=== PATIENT | female | born 1955 | race Caucasian/White ===

== ENCOUNTER → 2016-09-03 | Outpatient (REF) | payer MEDICARE, MEDICAID ==
[~2016-09-03] MED LIST: ABIL10TA OR; ASPI81TA3 OR; BACT2CRE EX; CALCCHW12 OR; CIPR25SS OR; DOXY100T OR; GLUC1000 OR; GLUC1000 PO; LEVO25TA2 PO; MULTIVIT PO; NIFE60TA PO; PAIN325T OR; RISP2TAB12 OR; SLOWTAB OR; [UNRECOGNIZED DRUG - CODE] OR; [UNRECOGNIZED DRUG - OTHER] PO
[2016-09-03 12:15] LABS: BASO % 0.6 % (0.0-1.0); EOS # 0.2 K/mm3 (0.0-0.50); EOS % 3.5 % (0.0-3.0); LARGE UNSTAINED CELL # 0.1 K/mm3 (0.0-0.4); LYMPH # 1.3 K/mm3 (1.5-4.5); LYMPH % 22.5 % (24.0-44.0); MEAN CORPUSCULAR HEMOGLOBIN 29.3 pg (27.0-33.0); MEAN CORPUSCULAR HGB CONC 32.3 g/dl (32.0-36.5); MEAN CORPUSCULAR VOLUME 90.8 fl (80.0-96.0); MONO # 0.3 K/mm3 (0.0-0.8); MONO % 4.6 % (0.0-5.0); NEUTROPHILS # 3.9 K/mm3 (1.8-7.7); NEUTROPHILS % 66.7 % (36.0-66.0); PLATELET COUNT, AUTOMATED 212 k/mm3 (150-450); RED CELL DISTRIBUTION WIDTH 13.6 % (11.5-14.5); WHITE BLOOD COUNT 5.9 K/mm3 (4.0-10.0)
[2016-09-03 12:42] LABS: ALBUMIN 4.1 GM/DL (3.2-5.2); ALBUMIN/GLOBULIN RATIO 1.37 (1.00-1.93); ALKALINE PHOSPHATASE 79 U/L (45-117); ALT/SGPT 22 U/L (12-78); ANION GAP 10 MEQ/L (8-16); AST/SGOT 10 U/L (15-37); BILIRUBIN,TOTAL 0.3 MG/DL (0.2-1.0); BLOOD UREA NITROGEN 12 MG/DL (7-18); CALCIUM LEVEL 9.4 MG/DL (8.5-10.1); CARBON DIOXIDE LEVEL 29 MEQ/L (21-32); CHLORIDE LEVEL 103 MEQ/L (98-107); CREATININE FOR GFR 0.72 MG/DL (0.55-1.02); FERRITIN 17 NG/ML (8-252); FREE T4 1.17 NG/DL (0.76-1.46); GLOMERULAR FILTRATION RATE > 60.0 (>51); GLUCOSE, FASTING 150 MG/DL (70-105); PERCENT SATURATION 13.5 % (13.2-37.4); POTASSIUM SERUM 4.3 MEQ/L (3.5-5.1); SODIUM LEVEL 142 MEQ/L (136-145); TOTAL IRON BINDING CAPACITY 468 UG/DL (250-450); TOTAL PROTEIN 7.1 GM/DL (6.4-8.2)
== END ==
LOC: M LABDRAW1 11:27
PROVIDERS: ATTEND Family Medicine
DX: E11.9 Type 2 diabetes mellitus without complications (principal); E03.9 Hypothyroidism, unspecified

== ENCOUNTER → 2017-02-12 | Outpatient (REF) | payer MEDICARE, MEDICAID ==
[2017-02-12 12:36] LABS: ALBUMIN/GLOBULIN RATIO 1.21 (1.00-1.93); ALKALINE PHOSPHATASE 79 U/L (45-117); ALT/SGPT 25 U/L (12-78); ANION GAP 10 MEQ/L (8-16); AST/SGOT 14 U/L (15-37); BILIRUBIN,TOTAL 0.4 MG/DL (0.2-1.0); BLOOD UREA NITROGEN 12 MG/DL (7-18); CALCIUM LEVEL 8.4 MG/DL (8.5-10.1); CARBON DIOXIDE LEVEL 27 MEQ/L (21-32); CHLORIDE LEVEL 99 MEQ/L (98-107); CHOLESTEROL LEVEL 160 MG/DL (<200); CREATININE FOR GFR 0.79 MG/DL (0.55-1.02); FREE T4 1.33 NG/DL (0.76-1.46); GLOMERULAR FILTRATION RATE > 60.0 (>51); GLUCOSE, FASTING 187 MG/DL (70-105); POTASSIUM SERUM 3.9 MEQ/L (3.5-5.1); SODIUM LEVEL 136 MEQ/L (136-145); TOTAL PROTEIN 7.3 GM/DL (6.4-8.2); TRIGLYCERIDES LEVEL 114 MG/DL (<150)
== END ==
LOC: M LABDRAW1 11:25
PROVIDERS: ATTEND Family Medicine
DX: E11.8 Type 2 diabetes mellitus with unspecified complications (principal)

== ENCOUNTER → 2019-03-24 | Outpatient (REF) | payer MEDICARE, OTHER, MEDICAID ==
[2019-03-24 10:10] LABS: BASO % 0.6 % (0.0-1.0); EOS # 0.3 10^3/uL (0.0-0.50); EOS % 3.6 % (0.0-3.0); HEMATOCRIT 40.2 % (36.0-47.0); HEMOGLOBIN 12.8 g/dl (12.0-15.5); LYMPH # 1.6 10^3/uL (1.5-4.5); LYMPH % 23.4 % (24.0-44.0); MEAN CORPUSCULAR HGB CONC 31.8 g/dl (32.0-36.5); MEAN CORPUSCULAR VOLUME 94.4 fl (80.0-96.0); MONO # 0.6 10^3/uL (0.0-0.8); NEUTROPHILS # 4.5 10^3/uL (1.8-7.7); NEUTROPHILS % 64.1 % (36.0-66.0); PLATELET COUNT, AUTOMATED 186 10^3/uL (150-450); RED BLOOD COUNT 4.26 10^6/uL (4.00-5.40)
[2019-03-24 10:43] LABS: ALBUMIN 3.9 GM/DL (3.2-5.2); ALT/SGPT 20 U/L (12-78); BILIRUBIN,TOTAL 0.3 MG/DL (0.2-1.0); BLOOD UREA NITROGEN 15 MG/DL (7-18); CALCIUM LEVEL 9.1 MG/DL (8.8-10.2); CARBON DIOXIDE LEVEL 28 MEQ/L (21-32); CHLORIDE LEVEL 104 MEQ/L (98-107); CREATININE FOR GFR 0.77 MG/DL (0.55-1.30); FERRITIN 19 NG/ML (8-252); GLOMERULAR FILTRATION RATE > 60.0 (>45); GLUCOSE, FASTING 152 MG/DL (70-100); POTASSIUM SERUM 4.4 MEQ/L (3.5-5.1); SODIUM LEVEL 141 MEQ/L (136-145); TOTAL PROTEIN 7.1 GM/DL (6.4-8.2)
[2019-03-24 10:51] LABS: PTH INTACT 30.3 PG/ML (18.5-88.0); TOTAL 25(OH) VITAMIN D 50.4 NG/ML (30.0-100.0)
[2019-03-24 11:14] LABS: HEMOGLOBIN A1c 8.3 %
== END ==
LOC: M SFHCPLAZ 08:20
PROVIDERS: ATTEND Family Medicine
DX: D50.9 Iron deficiency anemia, unspecified (principal); I10 Essential (primary) hypertension; E11.8 Type 2 diabetes mellitus with unspecified complications

== ENCOUNTER → 2019-12-01 | Outpatient (REF) | payer MEDICARE, MEDICAID ==
[2019-12-01 10:19] LABS: BASO % 0.5 % (0.0-1.0); EOS # 0.2 10^3/uL (0.0-0.5); EOS % 2.3 % (0.0-3.0); HEMOGLOBIN 12.9 g/dl (12.0-15.5); LYMPH # 1.5 10^3/uL (1.5-5.0); LYMPH % 21.9 % (24.0-44.0); MEAN CORPUSCULAR HEMOGLOBIN 29.4 pg (27.0-33.0); MEAN CORPUSCULAR HGB CONC 31.5 g/dl (32.0-36.5); MEAN CORPUSCULAR VOLUME 93.4 fl (80.0-96.0); MONO # 0.5 10^3/uL (0.0-0.8); MONO % 7.6 % (0.0-5.0); NEUTROPHILS # 4.5 10^3/uL (1.5-8.5); NEUTROPHILS % 67.2 % (36.0-66.0); PLATELET COUNT, AUTOMATED 205 10^3/uL (150-450); RED BLOOD COUNT 4.39 10^6/uL (4.00-5.40); WHITE BLOOD COUNT 6.6 10^3/uL (4.0-10.0)
[2019-12-01 11:03] LABS: ALBUMIN 4.2 GM/DL (3.2-5.2); ALT/SGPT 21 U/L (12-78); BILIRUBIN,TOTAL 0.5 MG/DL (0.2-1.0); BLOOD UREA NITROGEN 14 MG/DL (7-18); CALCIUM LEVEL 9.3 MG/DL (8.8-10.2); CARBON DIOXIDE LEVEL 28 MEQ/L (21-32); CHLORIDE LEVEL 105 MEQ/L (98-107); CREATININE FOR GFR 0.75 MG/DL (0.55-1.30); FREE T4 1.21 NG/DL (0.76-1.46); GLOMERULAR FILTRATION RATE > 60.0 (>45); GLUCOSE, FASTING 178 MG/DL (70-100); POTASSIUM SERUM 4.3 MEQ/L (3.5-5.1); SODIUM LEVEL 138 MEQ/L (136-145); TOTAL PROTEIN 7.7 GM/DL (6.4-8.2); VITAMIN B12 LEVEL > 2000 PG/ML (247-911)
== END ==
LOC: M SFHCPLAZ 08:10
PROVIDERS: ATTEND Family Medicine
DX: E53.8 Deficiency of other specified B group vitamins (principal); I10 Essential (primary) hypertension; E03.9 Hypothyroidism, unspecified

== ENCOUNTER → 2020-05-31 | Outpatient (REF) | payer MEDICARE, MEDICAID ==
[2020-05-31 14:09] LABS: BASO % 0.6 % (0.0-1.0); EOS # 0.2 10^3/uL (0.0-0.5); EOS % 3.1 % (0.0-3.0); HEMATOCRIT 39.6 % (36.0-47.0); HEMOGLOBIN 12.1 g/dl (12.0-15.5); LYMPH # 1.1 10^3/uL (1.5-5.0); LYMPH % 21.9 % (24.0-44.0); MEAN CORPUSCULAR HEMOGLOBIN 29.4 pg (27.0-33.0); MEAN CORPUSCULAR HGB CONC 30.6 g/dl (32.0-36.5); MEAN CORPUSCULAR VOLUME 96.1 fl (80.0-96.0); MONO # 0.4 10^3/uL (0.0-0.8); MONO % 7.5 % (0.0-5.0); NEUTROPHILS # 3.5 10^3/uL (1.5-8.5); NEUTROPHILS % 66.3 % (36.0-66.0); PLATELET COUNT, AUTOMATED 198 10^3/uL (150-450); RED BLOOD COUNT 4.12 10^6/uL (4.00-5.40); WHITE BLOOD COUNT 5.2 10^3/uL (4.0-10.0)
[2020-05-31 14:14] LABS: APPEARANCE, URINE CLEAR (CLEAR); BACTERIA, URINE AUTO NEGATIVE (NEGATIVE); BILIRUBIN, URINE AUTO NEGATIVE (NEGATIVE); BLOOD, URINE BLOOD NEGATIVE (NEGATIVE); COLOR, URINE COLORLESS (YELLOW); GLUCOSE, URINE (UA) AUTO NEGATIVE (NEGATIVE); KETONE, URINE AUTO NEGATIVE (NEGATIVE); LEUKOCYTE ESTERASE, URINE AUTO NEGATIVE (NEGATIVE); NITRITE, URINE AUTO NEGATIVE (NEGATIVE); PROTEIN, URINE AUTO NEGATIVE (NEGATIVE); RBC, URINE AUTO 0 /HPF (0-3); SPECIFIC GRAVITY URINE AUTO 1.002 (1.002-1.035); SQUAMOUS EPITHELIAL CELL UR AU 0 /HPF (0-6); UROBILINOGEN, URINE AUTO 0.2 mg/dL (0.0-2.0); WBC, URINE AUTO 1 /HPF (0-3)
[2020-05-31 14:32] LABS: ALBUMIN 3.8 GM/DL (3.2-5.2); ALT/SGPT 24 U/L (12-78); BILIRUBIN,TOTAL 0.3 MG/DL (0.2-1.0); BLOOD UREA NITROGEN 15 MG/DL (7-18); CARBON DIOXIDE LEVEL 29 MEQ/L (21-32); CHLORIDE LEVEL 106 MEQ/L (98-107); CHOLESTEROL LEVEL 156 MG/DL (<200); CREATININE FOR GFR 0.62 MG/DL (0.55-1.30); FREE T4 1.21 NG/DL (0.76-1.46); GLOMERULAR FILTRATION RATE > 60.0 (>45); GLUCOSE, FASTING 118 MG/DL (70-100); HDL CHOLESTEROL 80 MG/DL (>40); LDL CHOLESTEROL 58 MG/DL (<100); NON-HDL-C 76 MG/DL; POTASSIUM SERUM 4.1 MEQ/L (3.5-5.1); PTH INTACT 27.8 PG/ML (18.5-88.0); SODIUM LEVEL 141 MEQ/L (136-145); TOTAL 25(OH) VITAMIN D 44.5 NG/ML (30.0-100.0); TRIGLYCERIDES LEVEL 89 MG/DL (<150); VITAMIN B12 LEVEL 742 PG/ML (247-911)
[2020-05-31 14:42] LABS: HEMOGLOBIN A1c 6.2 %
[2020-05-31 14:49] LABS: CREATININE, URINE < 13.0 MG/DL; MALB URINE SIEMENS < 5.0 MG/L
== END ==
LOC: M PLALAB 08:13
PROVIDERS: ATTEND Family Medicine
DX: E53.8 Deficiency of other specified B group vitamins (principal); E55.9 Vitamin D deficiency, unspecified; E03.9 Hypothyroidism, unspecified; E11.8 Type 2 diabetes mellitus with unspecified complications; Z79.899 Other long term (current) drug therapy

== ENCOUNTER → 2020-10-27 | Outpatient (REF) | payer MEDICARE, MEDICAID ==
[2020-10-27 10:14] LABS: BASO % 0.6 % (0.0-1.0); EOS # 0.2 10^3/uL (0.0-0.5); EOS % 4.6 % (0.0-3.0); HEMATOCRIT 38.5 % (36.0-47.0); HEMOGLOBIN 11.9 g/dl (12.0-15.5); LYMPH # 1.3 10^3/uL (1.5-5.0); MEAN CORPUSCULAR HEMOGLOBIN 28.3 pg (27.0-33.0); MEAN CORPUSCULAR HGB CONC 30.9 g/dl (32.0-36.5); MEAN CORPUSCULAR VOLUME 91.4 fl (80.0-96.0); MONO # 0.5 10^3/uL (0.0-0.8); MONO % 8.7 % (2.0-8.0); NEUTROPHILS # 3.1 10^3/uL (1.5-8.5); NEUTROPHILS % 60.5 % (36.0-66.0); PLATELET COUNT, AUTOMATED 223 10^3/uL (150-450); RED BLOOD COUNT 4.21 10^6/uL (4.00-5.40); WHITE BLOOD COUNT 5.2 10^3/uL (4.0-10.0)
[2020-10-27 10:30] LABS: HEMOGLOBIN A1c 6.8 %
[2020-10-27 10:51] LABS: ALBUMIN 3.9 GM/DL (3.2-5.2); ALT/SGPT 21 U/L (12-78); BILIRUBIN,TOTAL 0.2 MG/DL (0.2-1.0); BLOOD UREA NITROGEN 12 MG/DL (7-18); CALCIUM LEVEL 9.3 MG/DL (8.8-10.2); CARBON DIOXIDE LEVEL 31 MEQ/L (21-32); CHLORIDE LEVEL 105 MEQ/L (98-107); CREATININE FOR GFR 0.71 MG/DL (0.55-1.30); FREE T4 1.13 NG/DL (0.76-1.46); GLOMERULAR FILTRATION RATE > 60.0 (>45); GLUCOSE, FASTING 167 MG/DL (70-100); NT-PRO BNP 58 PG/ML (<125); POTASSIUM SERUM 4.5 MEQ/L (3.5-5.1); SODIUM LEVEL 141 MEQ/L (136-145); TOTAL PROTEIN 7.2 GM/DL (6.4-8.2)
== END ==
LOC: M PLALAB 08:40
PROVIDERS: ATTEND Family Medicine
DX: R60.9 Edema, unspecified (principal); D50.9 Iron deficiency anemia, unspecified; E53.8 Deficiency of other specified B group vitamins; E03.9 Hypothyroidism, unspecified; E11.8 Type 2 diabetes mellitus with unspecified complications

== ENCOUNTER 2020-11-24 06:15 | Emergency (ER) | payer MEDICARE, MEDICAID ==
[~2020-11-24] VITALS: Ht 165.1 cm; Wt 118.2 kg
[2020-11-24] MEDS ORDERED: CLAR10CA3 PO (06:42)
[2020-11-24] MEDS ORDERED: NOXI1TAB PO (06:42)
[2020-11-24] MEDS ORDERED: B-12100T2 PO (06:42)
[2020-11-24] MEDS ORDERED: SITA50TAB PO (06:42)
[2020-11-24] MEDS ORDERED: GLIP2.5T6 PO (06:42)
[2020-11-24] MEDS ORDERED: FERR325T3 PO (06:42)
[2020-11-24] MEDS ORDERED: ABIL10TA9 PO (06:42)
[2020-11-24 07:08] LABS: BASO % 0.4 % (0.0-1.0); EOS # 0.1 10^3/uL (0.0-0.5); EOS % 1.8 % (0.0-3.0); HEMATOCRIT 36.8 % (36.0-47.0); HEMOGLOBIN 11.4 g/dl (12.0-15.5); LYMPH # 0.8 10^3/uL (1.5-5.0); LYMPH % 12.3 % (24.0-44.0); MEAN CORPUSCULAR HEMOGLOBIN 28.4 pg (27.0-33.0); MEAN CORPUSCULAR VOLUME 91.8 fl (80.0-96.0); MONO # 0.4 10^3/uL (0.0-0.8); NEUTROPHILS # 5.4 10^3/uL (1.5-8.5); NEUTROPHILS % 79.4 % (36.0-66.0); PLATELET COUNT, AUTOMATED 263 10^3/uL (150-450); RED BLOOD COUNT 4.01 10^6/uL (4.00-5.40); WHITE BLOOD COUNT 6.8 10^3/uL (4.0-10.0)
--- NOTE | 2020-11-24 07:23 | ECGEPIP ---
[facility] - ED Test Date: 2020-11-24 Pat Name: GREGORIO SANCHEZ Department: Room: - Gender: Female [employer]: QUANG : 1955 Requested By: JADEN Lan PA-C Order Number: [id number] Reading MD: Marcello Salcedo Measurements Intervals [place] Rate: 88 P: 28 [place]: 176 QRS: -10 QRSD: 90 T: 27 QT: 352 QTc: 425 Interpretive Statements Normal sinus rhythm NO PRIORS FOR COMPARISON Electronically Signed on 11-24-2020 7:23:09 EDT by Marcello Salcedo
[2020-11-24 08:02] LABS: ALBUMIN 3.4 GM/DL (3.2-5.2); ALT/SGPT 25 U/L (12-78); BILIRUBIN,DIRECT 0.1 MG/DL (0.0-0.2); BILIRUBIN,TOTAL 0.2 MG/DL (0.2-1.0); BLOOD UREA NITROGEN 15 MG/DL (7-18); CALCIUM LEVEL 8.6 MG/DL (8.8-10.2); CARBON DIOXIDE LEVEL 29 MEQ/L (21-32); CHLORIDE LEVEL 108 MEQ/L (98-107); CK-MB VALUE MASS 1.4 NG/ML (<3.6); CPK CREATINE PHOSPHOKINASE 99 U/L (26-192); CREATININE FOR GFR 0.54 MG/DL (0.55-1.30); GLOMERULAR FILTRATION RATE > 60.0 (>45); GLUCOSE, FASTING 162 MG/DL (70-100); MB/CK RELATIVE INDEX 1.41 (< OR =4); NT-PRO BNP 163 PG/ML (<125); POTASSIUM SERUM 3.5 MEQ/L (3.5-5.1); SODIUM LEVEL 143 MEQ/L (136-145); TOTAL PROTEIN 6.8 GM/DL (6.4-8.2); TROPONIN I < 0.02 NG/ML (< 0.10)
--- NOTE | 2020-11-24 08:05 | REP ---
INDICATION: severe foot pain, known ulcer over heel COMPARISON: None. TECHNIQUE: There are four views. FINDINGS: The distal tip of a compression plate is seen projected over the distal fibula. There is subtle curvilinear densities projected over the soft tissues adjacent to the calcaneus of uncertain significance, foreign bodies versus clothing artifacts. There is a focal zone of decreased bone density posteriorly inferiorly in the calcaneus just beneath the cortex of uncertain significance. This could represent focal osteoporosis, however, given the history of heel ulcer osteomyelitis is not entirely excluded. There is osteoarthritis at the great toe MTP articulation. This is compatible with osteoarthritis. There is joint space narrowing of the PIP and DIP articulations also compatible with osteoarthritis. No fracture or dislocation. IMPRESSION: Focal zone of decreased density posteriorly inferiorly in calcaneus just beneath the cortex, focal osteoporosis versus subtle osteoarthritis. Faintly visible curvilinear densities in projected over the soft tissues adjacent to the calcaneus, soft tissue foreign bodies versus clothing artifacts. Osteoarthritis as described. Internal fixation compression plate affixed to the distal fibula. <Electronically signed by Bi Trinh > 11/24/20 [id number]
--- NOTE | 2020-11-24 08:11 | REP ---
INDICATION: weakness, unable to lift R leg. COMPARISON: None. TECHNIQUE: AP pelvis single view, right hip two views, left hip two views. FINDINGS: AP pelvis: Mineralization is normal. The sacroiliac articulations are unremarkable. There is advanced osteoarthritis of the hips bilaterally. There are calcifications adjacent to the greater trochanters bilaterally, possibly calcific bursitis. The bladder appears distended. Right hip two views: There is advanced osteoarthritis. There are calcifications adjacent to the greater trochanter. These could be degenerative or could be evidence for calcific bursitis. Mineralization is normal. There is no fracture or dislocation. There is atheromatous calcification in the femoral artery. Left hip two views: There is advanced osteoarthritis. There are calcifications adjacent to the greater trochanter. These could be degenerative or could be evidence for calcific bursitis. Mineralization is normal. There is no fracture or dislocation. There is atheromatous calcification in the femoral artery. IMPRESSION: AP pelvis: Advanced bilateral hip osteoarthritis. Question bilateral calcific bursitis at the greater trochanters. No fracture or dislocation. Right hip two views: No fracture or dislocation. Advanced osteoarthritis Possible calcific bursitis at the greater trochanter. Left hip two views: No fracture or dislocation. Advanced osteoarthritis. Possible calcific bursitis at the greater trochanter. <Electronically signed by Bi Trinh > 11/24/20 [id number]
[2020-11-24 10:05] VITALS: BP 147/62
--- NOTE | 2020-11-25 08:37 | ED PDOC ---
Post-Departure Follow-Up dr mcghee faxed formal report of right foot xray for fu Rl Kingsley MD Nov 25, 2020 08:37
== END 2020-11-24 10:52 | disposition home or self-care (01) ==
LOC: M ED 06:15
DX: E11.621 Type 2 diabetes mellitus with foot ulcer (principal); I10 Essential (primary) hypertension; Z79.84 Long term (current) use of oral hypoglycemic drugs; Z79.899 Other long term (current) drug therapy; Z88.0 Allergy status to penicillin; Z88.1 Allergy status to other antibiotic agents; Z88.8 Allergy status to other drugs, medicaments and biological substances

== ENCOUNTER 2021-01-04 19:05 | Inpatient (IN) | payer MEDICARE, MEDICAID ==
[~2021-01-04] VITALS: Ht 165.1 cm; Wt 91.9 kg
[~2021-01-04 19:05] MED LIST changes: +ABIL10TA9 PO; +B-12100T2 PO; +CLAR10CA3 PO; +FERR325T3 PO; +GLIP2.5T6 PO; +NOXI1TAB PO; +SITA50TAB PO
[2021-01-04 20:06] LABS: BASO % 0.2 % (0.0-1.0); EOS % 0.1 % (0.0-3.0); HEMATOCRIT 31.2 % (36.0-47.0); HEMOGLOBIN 9.5 g/dl (12.0-15.5); LYMPH # 0.4 10^3/uL (1.5-5.0); LYMPH % 2.4 % (24.0-44.0); MEAN CORPUSCULAR HEMOGLOBIN 27.4 pg (27.0-33.0); MEAN CORPUSCULAR HGB CONC 30.4 g/dl (32.0-36.5); MEAN CORPUSCULAR VOLUME 89.9 fl (80.0-96.0); MONO # 0.7 10^3/uL (0.0-0.8); MONO % 4.4 % (2.0-8.0); NEUTROPHILS # 13.9 10^3/uL (1.5-8.5); NEUTROPHILS % 91.2 % (36.0-66.0); PLATELET COUNT, AUTOMATED 305 10^3/uL (150-450); RED BLOOD COUNT 3.47 10^6/uL (4.00-5.40); WHITE BLOOD COUNT 15.2 10^3/uL (4.0-10.0)
--- NOTE | 2021-01-04 20:06 | REP ---
INDICATION: weakness. COMPARISON: None. TECHNIQUE: Single portable AP view of the chest was performed. FINDINGS: There is no acute infiltrate or pulmonary edema. Lungs are clear. The heart is not significantly enlarged. The mediastinal silhouette is unremarkable. The visualized osseous structures are intact. IMPRESSION: No acute pulmonary disease. <Electronically signed by Bi James > 01/04/212001
[2021-01-04 20:32] LABS: BLOOD UREA NITROGEN 18 MG/DL (7-18); CALCIUM LEVEL 9.2 MG/DL (8.8-10.2); CARBON DIOXIDE LEVEL 22 MEQ/L (21-32); CHLORIDE LEVEL 105 MEQ/L (98-107); CK-MB VALUE MASS < 1.0 NG/ML (<3.6); CPK CREATINE PHOSPHOKINASE 85 U/L (26-192); CREATININE FOR GFR 0.57 MG/DL (0.55-1.30); FREE T4 1.71 NG/DL (0.76-1.46); GLOMERULAR FILTRATION RATE > 60.0 (>45); GLUCOSE, FASTING 240 MG/DL (70-100); IRON (FE) 18 UG/DL (50-170); MAGNESIUM LEVEL 1.6 MG/DL (1.8-2.4); MB/CK RELATIVE INDEX 1.18 (< OR =4); PERCENT SATURATION 7.1 % (13.2-45.0); POTASSIUM SERUM 3.8 MEQ/L (3.5-5.1); SODIUM LEVEL 139 MEQ/L (136-145); TOTAL IRON BINDING CAPACITY 253 UG/DL (250-450); TROPONIN I < 0.02 NG/ML (< 0.10)
[2021-01-04] MEDS: HumaLOG INSULIN (NovoLOG) PER UNIT SC SCH (21:00)
[2021-01-04 23:19] VITALS: O2SAT 95
[2021-01-04] MEDS ORDERED: MAGNESIUM OXIDE 400MG TAB (MAG-OX) PO ONE (23:30)
[2021-01-05] MEDS ORDERED: D31000TA2 PO (00:30)
[2021-01-05] MEDS ORDERED: VITMTA PO (00:30)
[2021-01-05] MEDS ORDERED: FERR325T18 PO (00:30)
[2021-01-05] MEDS ORDERED: NIFE1TAB51 PO (00:30)
[2021-01-05] MEDS ORDERED: VITA-172 PO (00:30)
[2021-01-05] MEDS ORDERED: MUPI30CR TOP (00:30)
[2021-01-05] MEDS ORDERED: RISP-9 PO (00:30)
[2021-01-05] MEDS ORDERED: SYNT50TA PO (00:30)
[2021-01-05] MEDS ORDERED: ABIL10TA9 PO (00:30)
[2021-01-05] MEDS ORDERED: LORA-622 PO (00:30)
[2021-01-05] MEDS ORDERED: METF10004 PO (00:30)
[2021-01-05] MEDS ORDERED: JANU100T PO (00:30)
[2021-01-05] MEDS ORDERED: ACET650T61 PO (00:30)
[2021-01-05] MEDS ORDERED: OYST500T91 PO (00:30)
[2021-01-05] MEDS ORDERED: GLIP2.5T6 PO (00:30)
[2021-01-05] MEDS ORDERED: ASPI-161 PO (00:30)
[2021-01-05] MEDS ORDERED: MAALOX 30 ML SUSP *UDC PO PRN (00:50)
[2021-01-05] MEDS ORDERED: MOM 30ML SUSPENSION UDC PO PRN (00:50)
[2021-01-05] MEDS ORDERED: GLUCAGON INJ 1MG VIAL SC PRN (00:50)
[2021-01-05] MEDS ORDERED: GLUCOSE 4GM CHEW TABLET PO PRN (00:50)
[2021-01-05] MEDS ORDERED: MUPIROCIN 2% OINT 22 GM TUBE TOP PRN (00:50)
[2021-01-05] MEDS ORDERED: DEXTROSE 50% 50 ML SYRINGE IV PRN (00:50)
--- NOTE | 2021-01-05 00:51 | REPVR ---
PROCEDURE INFORMATION: Exam: CT Head Without Contrast Exam date and time: 01/05/2021 12:20 AM Age: 65 years old Clinical indication: Injury or trauma; Fall; Concussion/head injury; Additional info: Weakness TECHNIQUE: Imaging protocol: Computed tomography of the head without contrast. Radiation optimization: All CT scans at this facility use at least one of these dose optimization techniques: automated exposure control; mA and/or kV adjustment per patient size (includes targeted exams where dose is matched to clinical indication); or iterative reconstruction. COMPARISON: No relevant prior studies available. FINDINGS: Limitations: Patient motion. Brain: Age-related volume loss. No definite acute intracranial hemorrhage. No midline shift or intracranial mass effect. Cerebral ventricles: No hydrocephalus. Bones/joints: No definite acute calvarial fracture. Paranasal sinuses: Minimal paranasal sinus disease. Mastoid air cells: Visualized mastoid air cells are well aerated. Soft tissues: Unremarkable. IMPRESSION: Patient motion without definite acute intracranial abnormality. Electronically signed by: Kartik Ibarra On 01/05/2021 00:51:04 AM
--- NOTE | 2021-01-05 01:20 | HPEPDOC ---
[facility] Medical History & Physical Date of Admission January 05, 2021 Date of Service: January 05, 2021 Attending Physician: EMETERIO MENA MD History and Physical CHIEF COMPLAINT: [65 y/o female presents to the ED after suffering a fall] HISTORY OF PRESENT ILLNESS: [This is a 65 y/o female with a pmh of schizo phrenia, tardive dyskinesias, htn, hypothyroidism and DM2 who presents to the ED after suffering a fall the night of 01/03. Patient states that she has been following wound clinic Dr. Oakes for a diabetic foot ulcer right foot and that earlier in the day she had an appointment and underwent a debridement. Patient states that after the debridement, she was having pain in her right foot and it made it difficult for her to stand up out of a chair, so she slid out and fell. Patient states that she feels as though the pain was the cause of her fall. Patient denies weakness, dizziness, lightheadedness, vision changes, syncope, headache, post fall grogginess, striking her head, back pain, hip pain, chest pain, sob, cough, fever, chills, abd pain, n/v/d. Of note, patient found to have hypomagnesemia of 1.6 and meet sirs criteria with tachycardia of 106 and leukocytosis of 15.2 ] PAST MEDICAL HISTORY: 1. [See HPI PAST SURGICAL HISTORY: 1. [Tonsillectomy]. 2. [Right ankle ORIF]. 3. [Laser eye surgery]. SOCIAL HISTORY: Tobacco use:[Denies] ETOH: [Denies] Illicit drug use: [Denies] FAMILY HISTORY: 4 siblings have DM ALLERGIES: Please see below. REVIEW OF SYSTEMS: CONSTITUTIONAL: [See HPI]. HEENT: [See HPI]. CARDIOVASCULAR: [See HPI]. RESPIRATORY: [See HPI]. GASTROINTESTINAL: [See HPI]. GENITOURINARY: [Denies dysuria]. SKIN: [Denies rash]. MUSCULOSKELETAL: [See HPI]. NEUROLOGICAL: [See HPI]. PSYCHIATRIC: [Hx of schizophrenia, tardive dyskinesia]. ENDOCRINE: [Hx of DM]. HEMATOLOGIC/LYMPHATIC: [Denies easy bruising]. HOME MEDICATIONS: Please see below. PHYSICAL EXAMINATION: VITAL SIGNS: Please see below. GENERAL APPEARANCE: [This is a 65 y/o female who appears older than her stated age. She is laying in bed and has a b/l hand tremor.]. HEENT: [No mass or lesion. Masked facies. EOMI. No scleral icterus. Nares patent. Oral mucosa moist without erythema.]. CARDIOVASCULAR: [Regular rate, rhythm. No murmurs, rubs, gallops]. LUNGS: [Good air flow auscultated. no wheezing, rales, rhonchi]. ABDOMEN: [Soft, nontender]. MUSCULOSKELETAL: [No joint deformity noted]. EXTREMITIES: [Right leg is wrapped in a large coban dressing. No edema noted. No skin changes of left leg noted. Pulses intact. ]. NEUROLOGICAL: [Sensation decreased in b/l lower extremity. B/L hand tremor as noted. Speech clear. A+Ox3.]. PSYCHIATRIC: [Mood and affect appear appropriate.]. LABORATORY DATA: See below. IMAGING: [CXR: FINDINGS: There is no acute infiltrate or pulmonary edema. Lungs are clear. The heart is not significantly enlarged. The mediastinal silhouette is unremarkable. The visualized osseous structures are intact. IMPRESSION: No acute pulmonary disease. Head CT: FINDINGS: Limitations: Patient motion. Brain: Age-related volume loss. No definite acute intracranial hemorrhage. No midline shift or intracranial mass effect. Cerebral ventricles: No hydrocephalus. Bones/joints: No definite acute calvarial fracture. Paranasal sinuses: Minimal paranasal sinus disease. Mastoid air cells: Visualized mastoid air cells are well aerated. Soft tissues: Unremarkable. IMPRESSION: Patient motion without definite acute intracranial abnormality. ] MICROBIOLOGY: Please see below. ASSESSMENT: [This is a 65 y/o female with a pmh of schizophrenia, tardive dyskinesias, htn, hypothyroidism and DM2 who presents to the ED after suffering a fall in which she states she was unable to stand due to pain in her right foot as she is s/p ulcer debridement. Patient did not strike her head and denies injury from the fall.]. . PLAN: 1. [ Weakness - Potentially secondary to pain, diabetic neuropathy, tardive dyskinesia - Patient would likely benefit from pt/ot - CT head negative - Will admit under obs to med surg 2. SIRS - Leukocytosis potentially inflammatory secondary to procedure earlier in the day. - Potential source of infection is the ulcer but this seems unlikely at this time. - Negative cxr, ua. Normal lactic - Ordered crp, procalcitonin - Blood cultures pending 3. Hypomagnesemia - Patient received 400mg mag oxide po in ed - Will repeat bmp at 0600 and replace as needed 4. Diabetic ulcer - Patient underwent debridement 01/03 - Day team can consider consulting wound clinic for advice on dressing changes 5. DM - Sliding scale, hypoglycemic protocol 6. HTN - continue nifedipine 7. hypothyroidism - continue levothyroxine 8. schizophrenia - continue risperdal, abilify DVT prophylaxis - Teds and scds]. Vital Signs Vital Signs Date Time Temp Pulse Resp B/P (MAP) Pulse Ox O2 Delivery O2 Flow Rate FiO2 01/04/21 23:19 95 Room Air 01/04/21 23:15 51 133/58 (83) 01/04/21 19:16 98.9 20 Laboratory Data Labs 24H Laboratory Tests 2 01/04/21 19:44: Immature Granulocyte % (Auto) 1.7, Neutrophils (%) (Auto) 91.2H, Lymphocytes (%) (Auto) 2.4L, Monocytes (%) (Auto) 4.4, Eosinophils (%) (Auto) 0.1, Basophils (%) (Auto) 0.2, Neutrophils # (Auto) 13.9H, Lymphocytes # (Auto) 0.4L, Monocytes # (Auto) 0.7, Eosinophils # (Auto) 0.0, Basophils # (Auto) 0.0, Nucleated Red Blood Cells % (auto) 0.0, Anion Gap 12, Glomerular Filtration Rate > 60.0, Calcium Level 9.2, Phosphorus Level 3.0, Magnesium Level 1.6L, Iron Level 18L, Total Iron Binding Capacity 253, Transferrin % Saturation 7.1L, Total Creatine Kinase 85, Creatine Kinase MB < 1.0, Creatine Kinase MB Relative Index 1.18, Troponin I < 0.02, Thyroid Stimulating Hormone (TSH) 1.150, Free Thyroxine 1.71H 01/04/21 23:14: Urine Color YELLOW, Urine Appearance HAZY, Urine pH 5.0, Urine Specific [place] 1.024, Urine Protein 1+H, Urine Glucose (UA) 2+H, Urine Ketones 2+H, Urine Blood 2+H, Urine Nitrite NEGATIVE, Urine Bilirubin NEGATIVE, Urine Urobilinogen 0.2, Urine Leukocyte Esterase NEGATIVE, Urine WBC (Auto) 1, Urine RBC (Auto) 3, Urine Hyaline Casts (Auto) 0, Urine Bacteria (Auto) NEGATIVE, Urine Squamous Ep ithelial Cells 0, Urine Mucus (Auto) SMALL, Urine Sperm (Auto) 01/05/21 00:52: CBC/BMP Laboratory Tests 01/04/21 19:44 Microbiology Microbiology 01/05/21 Blood Culture, Received Pending 01/04/21 Respiratory Virus Panel (PCR) (NICO) - Final, Complete Home Medications Scheduled Acetaminophen (Tylenol Arthritis) 650 Mg Tablet.er, 650 MG PO Q8H Aripiprazole (Abilify) 10 Mg Tablet, 10 MG PO QHS Aspirin (Aspirin EC) 81 Mg Tablet.dr, 81 MG PO DAILY Calcium Carbonate/Vitamin D3 (Calcium 500-Vit D3 200 Tablet) 1 Each Tablet, 1 TAB PO BID Cholecalciferol (Vitamin D3) (Vitamin D3) 1,000 Unit Tablet, 1,000 UNITS PO DAILY Cyanocobalamin (Vitamin B-12) (Vitamin B-12) 500 Mcg Tablet, 500 MCG PO DAILY Ferrous Sulfate (Ferrous Sulfate) 325 Mg Tablet, 325 MG PO DAILY Glipizide (Glipizide ER) 2.5 Mg Tab.er.24, 2.5 MG PO BID Levothyroxine Sodium (Synthroid) 50 Mcg Tablet, 50 MCG PO DAILY Loratadine (Loratadine) 10 Mg Tablet, 10 MG PO QHS Metformin HCl (Metformin HCl) 1,000 Mg Tablet, 1,000 MG PO BID Multivitamins (Thera M Plus Tablet) 1 Each Tablet, 1 TAB PO DAILY Nifedipine (Nifedipine ER) 60 Mg Tab.er.24, 60 MG PO DAILY Risperidone (Risperidone) 2 Mg Tablet, 2 MG PO BID Sitagliptin Phosphate (Januvia) 100 Mg Tablet, 100 MG PO DAILY Scheduled PRN Mupirocin (Mupirocin) 30 Gm Cream..g., 1 DOSE TOP BID PRN for SKIN INFECTION APPLIES TO RIGHT FOOT Allergies Coded Allergies: CASSIE Inhibitors (Verified Allergy, Unknown, 11/24/20) Penicillins (Verified Allergy, Unknown, 11/24/20) chlorpromazine (Verified Allergy, Unknown, 11/24/20) haloperidol (Verified Allergy, Unknown, 11/24/20) A-FIB/CHADSVASC A-FIB History Current/History of A-Fib/PAF?: No Attending Note Attending Note time of service 1259am Ms. Bustillo is a 65 yr old w a hx of hypothyroidism, NIDDM, HTN, schizophrenia, iatrogenic tardive dyskinesia, and MEREDITH who is admitted for evaluation of unsteady gait & SIRS of unclear cause. The CT head of the head is neg; we will ask the day time team to consider MRI of the brain, CTA of the head and neck + PT eval. MONICA SCHWARTZ January 05, 2021 01:20 EMETERIO MENA MD January 05, 2021 06:59
[2021-01-05] MEDS: ARIPiprazole 10 MG TAB PO SCH ×2 (01:30→20:22)
[2021-01-05] MEDS: LORATADINE 10 MG TAB PO SCH ×2 (01:30→20:22)
[2021-01-05] MEDS: risperiDONE 2 MG TAB PO SCH ×3 (01:30→20:22)
[2021-01-05] MEDS: CALCIUM/VITAMIN D 500 MG TAB PO SCH ×3 (02:33→20:22)
[2021-01-05 02:35] VITALS: BP 129/56
--- NOTE | 2021-01-05 02:46 | ECGEPIP ---
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
[2021-01-05] MEDS: ACETAMINOPHEN TAB 650MG DOSE (2X325MG) PO PRN (05:33)
[2021-01-05] MEDS: LEVOTHYROXINE 50MCG TABLET (0.05MG) PO SCH (05:33)
[2021-01-05 06:00] VITALS: BP 131/60
[2021-01-05 06:25] LABS: HEMOGLOBIN 9.3 g/dl (12.0-15.5); MEAN CORPUSCULAR HEMOGLOBIN 27.8 pg (27.0-33.0); MEAN CORPUSCULAR VOLUME 89.6 fl (80.0-96.0); PLATELET COUNT, AUTOMATED 279 10^3/uL (150-450); RED BLOOD COUNT 3.35 10^6/uL (4.00-5.40); WHITE BLOOD COUNT 12.5 10^3/uL (4.0-10.0)
[2021-01-05 06:44] LABS: BLOOD UREA NITROGEN 15 MG/DL (7-18); CARBON DIOXIDE LEVEL 26 MEQ/L (21-32); CHLORIDE LEVEL 104 MEQ/L (98-107); CREATININE FOR GFR 0.38 MG/DL (0.55-1.30); GLOMERULAR FILTRATION RATE > 60.0 (>45); GLUCOSE, FASTING 158 MG/DL (70-100); MAGNESIUM LEVEL 1.8 MG/DL (1.8-2.4); POTASSIUM SERUM 3.2 MEQ/L (3.5-5.1); SODIUM LEVEL 139 MEQ/L (136-145)
[2021-01-05] MEDS ORDERED: POTASSIUM CHLORIDE 10 MEQ SR TABLET PO ONE (08:00)
[2021-01-05] MEDS: NIFEdipine 30 MG XL TAB PO SCH (09:00)
[2021-01-05] MEDS: FERROUS SULFATE 325MG TAB PO SCH (09:22)
[2021-01-05] MEDS: DOCUSATE SODIUM 100MG CAPSULE PO SCH ×2 (09:22→20:23)
[2021-01-05] MEDS: HumaLOG INSULIN (NovoLOG) PER UNIT SC SCH ×4 (09:22→20:23)
[2021-01-05] MEDS: MULTIVITAMINS/MINERALS THERAP 1 TAB PO SCH (09:23)
[2021-01-05] MEDS: CYANOCOBALAMIN 500 MCG TAB PO SCH (09:23)
[2021-01-05] MEDS: VITAMIN D 1,000 INTERNATIONAL UNITS TABLET PO SCH (09:23)
[2021-01-05] MEDS: ASPIRIN 81MG ENTERIC TABLET PO SCH (09:23)
--- NOTE | 2021-01-05 12:21 | IPNPDOC ---
Text Note Date of Service The patient was seen on 01/05/21. NOTE Subjective: Patient seen and examined at bedside. No acute overnight events reported. Patient voices no new medical complaints this morning. Objective: General: NAD, lying comfortably in bed, hirsute HEENT: NC/AT, EOMI Lungs; CTA B/L Heart: +S1S2, RRR Abd: soft, NT, +BS, obese Ext: peripheral edema, RLE bandages in place A/P: 65F with PMHx of schizophrenia, tardive dyskinesias, htn, hypothyroidism and DM2 who presents to the ED after suffering a fall the night of 01/03. Patient states that she has been following wound clinic Dr. Oakes for a diabetic foot ulcer right foot and that earlier in the day she had an appointment and underwent a debridement. Patient states that after the debridement, she was having pain in her right foot and it made it difficult for her to stand up out of a chair, so she slid out and fell. Patient states that she feels as though the pain was the cause of her fall. #Weakness - Potentially secondary to pain, diabetic neuropathy, tardive dyskinesia - pt/ot - CT head negative #SIRS - resolved - no obvious source of infection - Leukocytosis potentially inflammatory secondary to procedure earlier in the day. - Negative cxr, ua. Normal lactic - Ordered crp, procalcitonin - Blood cultures pending #Hypomagnesemia - Patient received 400mg mag oxide po in ed - continue to follow and replete as needed #Diabetic ulcer - Patient underwent debridement 01/03 - wound care # DM - Sliding scale, hypoglycemic protocol # HTN - continue nifedipine # hypothyroidism - continue levothyroxine #schizophrenia - continue risperdal, abilify #DVT prophylaxis - Teds and scds]. VS,Fishbone, I+O VS, Fishbone, I+O Laboratory Tests 01/04/21 19:44 01/05/21 05:46 Vital Signs Date Time Temp Pulse Resp B/P (MAP) Pulse Ox O2 Delivery O2 Flow Rate FiO2 01/05/21 06:00 96.9 89 18 131/60 (83) 94 Room Air I&O- Last 24 Hours up to 6 AM 01/05/21 06:00 Intake Total 240 ml Balance 240 ml BENTLEY WALLACE MD January 05, 2021 12:21
[2021-01-05 14:00] VITALS: BP 114/50
[2021-01-05 22:00] VITALS: BP 106/57
[2021-01-06] MEDS: LEVOTHYROXINE 50MCG TABLET (0.05MG) PO SCH (05:35)
[2021-01-06 05:59] LABS: HEMATOCRIT 31.8 % (36.0-47.0); HEMOGLOBIN 9.7 g/dl (12.0-15.5); MEAN CORPUSCULAR HEMOGLOBIN 27.7 pg (27.0-33.0); MEAN CORPUSCULAR HGB CONC 30.5 g/dl (32.0-36.5); MEAN CORPUSCULAR VOLUME 90.9 fl (80.0-96.0); PLATELET COUNT, AUTOMATED 261 10^3/uL (150-450); WHITE BLOOD COUNT 9.5 10^3/uL (4.0-10.0)
[2021-01-06 06:00] VITALS: BP 131/78
[2021-01-06 06:15] LABS: BLOOD UREA NITROGEN 10 MG/DL (7-18); CALCIUM LEVEL 8.5 MG/DL (8.8-10.2); CARBON DIOXIDE LEVEL 29 MEQ/L (21-32); CHLORIDE LEVEL 104 MEQ/L (98-107); CREATININE FOR GFR 0.47 MG/DL (0.55-1.30); GLOMERULAR FILTRATION RATE > 60.0 (>45); GLUCOSE, FASTING 187 MG/DL (70-100); MAGNESIUM LEVEL 1.6 MG/DL (1.8-2.4); POTASSIUM SERUM 3.5 MEQ/L (3.5-5.1); SODIUM LEVEL 138 MEQ/L (136-145)
[2021-01-06] MEDS ORDERED: MAG SULF 1GM/100ML (MAG RUN) 1 GM in IV 1 EA IV ONE (06:40)
[2021-01-06] MEDS: HumaLOG INSULIN (NovoLOG) PER UNIT SC SCH ×4 (07:55→21:18)
[2021-01-06] MEDS: MULTIVITAMINS/MINERALS THERAP 1 TAB PO SCH (09:53)
[2021-01-06] MEDS: CYANOCOBALAMIN 500 MCG TAB PO SCH (09:54)
[2021-01-06] MEDS: CALCIUM/VITAMIN D 500 MG TAB PO SCH ×2 (09:54→21:10)
[2021-01-06] MEDS: ASPIRIN 81MG ENTERIC TABLET PO SCH (09:54)
[2021-01-06] MEDS: DOCUSATE SODIUM 100MG CAPSULE PO SCH ×2 (09:54→21:09)
[2021-01-06] MEDS: VITAMIN D 1,000 INTERNATIONAL UNITS TABLET PO SCH (09:54)
[2021-01-06] MEDS: risperiDONE 2 MG TAB PO SCH ×2 (09:54→21:09)
[2021-01-06] MEDS: FERROUS SULFATE 325MG TAB PO SCH (09:54)
[2021-01-06] MEDS: NIFEdipine 30 MG XL TAB PO SCH (10:00)
[2021-01-06] MEDS: LORATADINE 10 MG TAB PO SCH (21:09)
[2021-01-06] MEDS: ARIPiprazole 10 MG TAB PO SCH (21:10)
[2021-01-06 22:00] VITALS: BP 107/53
[2021-01-07 06:00] VITALS: BP 131/65
[2021-01-07] MEDS: LEVOTHYROXINE 50MCG TABLET (0.05MG) PO SCH (06:24)
[2021-01-07 06:35] LABS: HEMATOCRIT 32.4 % (36.0-47.0); HEMOGLOBIN 9.9 g/dl (12.0-15.5); MEAN CORPUSCULAR HEMOGLOBIN 27.6 pg (27.0-33.0); MEAN CORPUSCULAR HGB CONC 30.6 g/dl (32.0-36.5); MEAN CORPUSCULAR VOLUME 90.3 fl (80.0-96.0); PLATELET COUNT, AUTOMATED 278 10^3/uL (150-450); RED BLOOD COUNT 3.59 10^6/uL (4.00-5.40); WHITE BLOOD COUNT 9.7 10^3/uL (4.0-10.0)
[2021-01-07 07:02] LABS: BLOOD UREA NITROGEN 10 MG/DL (7-18); CALCIUM LEVEL 8.5 MG/DL (8.8-10.2); CARBON DIOXIDE LEVEL 28 MEQ/L (21-32); CHLORIDE LEVEL 104 MEQ/L (98-107); CREATININE FOR GFR 0.43 MG/DL (0.55-1.30); GLOMERULAR FILTRATION RATE > 60.0 (>45); GLUCOSE, FASTING 210 MG/DL (70-100); MAGNESIUM LEVEL 1.8 MG/DL (1.8-2.4); POTASSIUM SERUM 3.9 MEQ/L (3.5-5.1); SODIUM LEVEL 139 MEQ/L (136-145)
[2021-01-07] MEDS: MEROPENEM INJ 1 GM in IV 1 EA IV SCH ×3 (07:30→22:12)
[2021-01-07] MEDS: ASPIRIN 81MG ENTERIC TABLET PO SCH (08:08)
[2021-01-07] MEDS: DOCUSATE SODIUM 100MG CAPSULE PO SCH ×2 (08:08→20:40)
[2021-01-07] MEDS: MULTIVITAMINS/MINERALS THERAP 1 TAB PO SCH (08:08)
[2021-01-07] MEDS: VITAMIN D 1,000 INTERNATIONAL UNITS TABLET PO SCH (08:08)
[2021-01-07] MEDS: CALCIUM/VITAMIN D 500 MG TAB PO SCH ×2 (08:09→20:40)
[2021-01-07] MEDS: CYANOCOBALAMIN 500 MCG TAB PO SCH (08:09)
[2021-01-07] MEDS: FERROUS SULFATE 325MG TAB PO SCH (08:09)
[2021-01-07] MEDS: HumaLOG INSULIN (NovoLOG) PER UNIT SC SCH ×4 (08:09→20:40)
[2021-01-07] MEDS: risperiDONE 2 MG TAB PO SCH ×2 (08:09→20:40)
[2021-01-07] MEDS: NIFEdipine 30 MG XL TAB PO SCH (08:09)
--- NOTE | 2021-01-07 11:15 | IPNPDOC ---
Text Note Date of Service The patient was seen on 01/06/21. NOTE Subjective: Patient seen and examined at bedside. No acute overnight events reported. Patient voices no new medical complaints this morning. Objective: General: NAD, lying comfortably in bed, hirsute HEENT: NC/AT, EOMI Lungs; CTA B/L Heart: +S1S2, RRR Abd: soft, NT, +BS, obese Ext: peripheral edema, RLE bandages in place A/P: 65F with PMHx of schizophrenia, tardive dyskinesias, htn, hypothyroidism and DM2 who presents to the ED after suffering a fall the night of 01/03. Patient states that she has been following wound clinic Dr. Hutton for a diabetic foot ulcer right foot and that earlier in the day she had an appointment and underwent a debridement. Patient states that after the debridement, she was having pain in her right foot and it made it difficult for her to stand up out of a chair, so she slid out and fell. Patient states that she feels as though the pain was the cause of her fall. #Weakness - Potentially secondary to pain, diabetic neuropathy, tardive dyskinesia - pt/ot - CT head negative #SIRS - resolved - no obvious source of infection - Leukocytosis potentially inflammatory secondary to procedure earlier in the day. - Negative cxr, ua. Normal lactic - Ordered crp, procalcitonin - Blood cultures pending #Hypomagnesemia - Patient received 400mg mag oxide po in ed - continue to follow and replete as needed #Diabetic ulcer - Patient underwent debridement 01/03 - wound care pending - discussed with dr hutton, possible consult on saturday # DM - Sliding scale, hypoglycemic protocol # HTN - continue nifedipine # hypothyroidism - continue levothyroxine #schizophrenia - continue risperdal, abilify #DVT prophylaxis - Teds and scds]. VS,Fishbone, I+O VS, Fishbone, I+O Laboratory Tests 01/07/21 06:14 Vital Signs Date Time Temp Pulse Resp B/P (MAP) Pulse Ox O2 Delivery O2 Flow Rate FiO2 01/07/21 08:09 131/65 01/07/21 06:00 97.7 73 17 95 Room Air I&O- Last 24 Hours up to 6 AM 01/07/21 06:00 Intake Total 1775 ml Output Total 300 ml Balance 1475 ml LALDIN,BENTLEY S. MD January 07, 2021 11:15
--- NOTE | 2021-01-07 11:37 | IPNPDOC ---
Text Note Date of Service The patient was seen on 01/07/21. NOTE Subjective: Patient seen and examined at bedside. No acute overnight events reported. Patient voices no new medical complaints this morning. New wound identified on her right foot. Objective: General: NAD, lying comfortably in bed, hirsute HEENT: NC/AT, EOMI Lungs; CTA B/L Heart: +S1S2, RRR Abd: soft, NT, +BS, obese Ext: peripheral edema, RLE bandages in place A/P: 65F with PMHx of schizophrenia, tardive dyskinesias, htn, hypothyroidism and DM2 who presents to the ED after suffering a fall the night of 01/03. Patient states that she has been following wound clinic Dr. Hutton for a diabetic foot ulcer right foot and that earlier in the day she had an appointment and underwent a debridement. Patient states that after the debridement, she was having pain in her right foot and it made it difficult for her to stand up out of a chair, so she slid out and fell. Patient states that she feels as though the pain was the cause of her fall. #Foot wounds - discussed with dr hernandez - wound care instructions provided - podiatry consulted - assistance appreciated - new cultures + staph aureus - Blood cultures negative to date #Weakness - Potentially secondary to pain, diabetic neuropathy, tardive dyskinesia - pt/ot - CT head negative #SIRS - resolved #Hypomagnesemia - Patient received 400mg mag oxide po in ed - continue to follow and replete as needed #Diabetic ulcer - Patient underwent debridement 01/03 - wound care pending - discussed with dr hutton, possible consult on saturday - podiatry c/s pending # DM - Sliding scale, hypoglycemic protocol # HTN - continue nifedipine # hypothyroidism - continue levothyroxine #schizophrenia - continue risperdal, abilify #DVT prophylaxis - Teds and scds Dispo: started IV Abx for staph wound infection, podiatry c/s pending, advanced wound care consult probable on Saturday; discussed at length with sister Ludmila Flores, VS,Fishbone, I+O VS, Fishbone, I+O Laboratory Tests 01/07/21 06:14 Vital Signs Date Time Temp Pulse Resp B/P (MAP) Pulse Ox O2 Delivery O2 Flow Rate FiO2 01/07/21 08:09 131/65 01/07/21 06:00 97.7 73 17 95 Room Air I&O- Last 24 Hours up to 6 AM 01/07/21 06:00 Intake Total 1775 ml Output Total 300 ml Balance 1475 ml BENTLEY WALLACE MD January 07, 2021 11:37
[2021-01-07] MEDS ORDERED: VANCOMYCIN HCL 1,000 MG, VIAL MATE ADAPTER 1 EACH in NS 250 ML IV ONE (12:00)
--- NOTE | 2021-01-07 12:22 | CR ---
CONSULTATION DATE: 01/07/2021 REASON FOR CONSULTATION: Right heel ulcer. HISTORY OF PRESENT ILLNESS: A 65-year-old female who was admitted with worsening conditions of her right foot. She had previously been seen by Dr. Oakes and had a wound debridement. Since admission, worsening condition of the wound has been noted. MEDICAL HISTORY: Significant for: 1. Schizophrenia. 2. Tardive dyskinesia. 3. Hypertension. 4. Hypothyroidism. 5. Diabetes. SURGICAL HISTORY: 1. Tonsillectomy. 2. Right ankle open reduction, internal fixation (ORIF). 3. Laser eye surgery. REVIEW OF SYSTEMS: Negative for nausea, vomiting, fever, chills. FAMILY HISTORY: Diabetes. ALLERGIES: Angiotensin-converting enzyme (CASSIE) inhibitors, PENICILLIN, CHLORPROMAZINE, HALOPERIDOL. VITAL SIGNS: Maximum temperature 99.2. LABORATORY DATA: White blood cell count on admission was 15.2, today was 9.7. CRP on admission 23.9. Wound culture thus far is growing Staphylococcus aureus. Lower extremity examination: Plantar ulceration with some necrotic fat tissue on the medial aspect of the heel. There is a purulent blister. ASSESSMENT: A 65-year-old diabetic female with right foot diabetic ulceration and infection. PLAN: Bedside debridement was performed using #15 blade and dermal curette. Excisional fashion, including subcutaneous and fat tissue. Purulence was expressed until no further purulent tissue was noted. Continue wound care per Zachery Strickland, Sourav Urbano. She should have heel float boots while in bed. Await final culture results. Once improved, hopefully can be discharged on oral medication with followup with Dr. Oakes.
[2021-01-07 14:00] VITALS: BP 111/76
[2021-01-07] MEDS: VANCOMYCIN HCL 1,000 MG, VIAL MATE ADAPTER 1 EACH in NS 250 ML IV SCH (19:46)
[2021-01-07] MEDS: LORATADINE 10 MG TAB PO SCH (20:40)
[2021-01-07] MEDS: ARIPiprazole 10 MG TAB PO SCH (20:40)
[2021-01-07] MEDS: NYSTATIN 100,000 UNITS/GM TOPICAL PWD 15 GM TOP PRN (20:40)
[2021-01-07 22:00] VITALS: BP 107/50
[2021-01-08] MEDS: VANCOMYCIN HCL 1,000 MG, VIAL MATE ADAPTER 1 EACH in NS 250 ML IV SCH ×3 (04:06→20:03)
[2021-01-08 06:00] VITALS: BP 111/50
[2021-01-08] MEDS: LEVOTHYROXINE 50MCG TABLET (0.05MG) PO SCH (06:00)
[2021-01-08] MEDS: MEROPENEM INJ 1 GM in IV 1 EA IV SCH ×3 (06:00→23:08)
[2021-01-08 06:07] LABS: HEMOGLOBIN 9.5 g/dl (12.0-15.5); MEAN CORPUSCULAR HEMOGLOBIN 27.6 pg (27.0-33.0); MEAN CORPUSCULAR HGB CONC 30.6 g/dl (32.0-36.5); MEAN CORPUSCULAR VOLUME 90.1 fl (80.0-96.0); PLATELET COUNT, AUTOMATED 274 10^3/uL (150-450); RED BLOOD COUNT 3.44 10^6/uL (4.00-5.40); WHITE BLOOD COUNT 9.3 10^3/uL (4.0-10.0)
[2021-01-08 06:27] LABS: BLOOD UREA NITROGEN 11 MG/DL (7-18); CALCIUM LEVEL 8.5 MG/DL (8.8-10.2); CARBON DIOXIDE LEVEL 29 MEQ/L (21-32); CHLORIDE LEVEL 104 MEQ/L (98-107); CREATININE FOR GFR 0.48 MG/DL (0.55-1.30); GLOMERULAR FILTRATION RATE > 60.0 (>45); GLUCOSE, FASTING 260 MG/DL (70-100); MAGNESIUM LEVEL 1.6 MG/DL (1.8-2.4); POTASSIUM SERUM 3.9 MEQ/L (3.5-5.1); SODIUM LEVEL 140 MEQ/L (136-145)
[2021-01-08] MEDS: HumaLOG INSULIN (NovoLOG) PER UNIT SC SCH ×4 (07:18→20:41)
[2021-01-08] MEDS: NYSTATIN 100,000 UNITS/GM TOPICAL PWD 15 GM TOP PRN (08:46)
[2021-01-08] MEDS: NIFEdipine 30 MG XL TAB PO SCH (08:46)
[2021-01-08] MEDS: FERROUS SULFATE 325MG TAB PO SCH (08:46)
[2021-01-08] MEDS: risperiDONE 2 MG TAB PO SCH ×2 (08:46→20:03)
[2021-01-08] MEDS: ASPIRIN 81MG ENTERIC TABLET PO SCH (08:46)
[2021-01-08] MEDS: CYANOCOBALAMIN 500 MCG TAB PO SCH (08:46)
[2021-01-08] MEDS: CALCIUM/VITAMIN D 500 MG TAB PO SCH ×2 (08:47→20:03)
[2021-01-08] MEDS: DOCUSATE SODIUM 100MG CAPSULE PO SCH ×2 (08:47→20:03)
[2021-01-08] MEDS: MULTIVITAMINS/MINERALS THERAP 1 TAB PO SCH (08:47)
[2021-01-08] MEDS: VITAMIN D 1,000 INTERNATIONAL UNITS TABLET PO SCH (08:47)
--- NOTE | 2021-01-08 09:24 | IPNPDOC ---
Text Note Date of Service The patient was seen on 01/08/21. NOTE Subjective: Patient seen and examined at bedside. No acute overnight events reported. Patient voices no new medical complaints this morning. Underwent bedside debridement of her right heel wound yesterday. Objective: General: NAD, lying comfortably in bed, hirsute HEENT: NC/AT, EOMI Lungs; CTA B/L Heart: +S1S2, RRR Abd: soft, NT, +BS, obese Ext: peripheral edema, RLE bandages in place A/P: 65F with PMHx of schizophrenia, tardive dyskinesias, htn, hypothyroidism and DM2 who presents to the ED after suffering a fall the night of 01/03. Patient states that she has been following wound clinic Dr. Hutton for a diabetic foot ulcer right foot and that earlier in the day she had an appointment and underwent a debridement. Patient states that after the debridement, she was having pain in her right foot and it made it difficult for her to stand up out of a chair, so she slid out and fell. Patient states that she feels as though the pain was the cause of her fall. #Foot wounds - discussed with dr hutton - wound care instructions provided - podiatry consulted - assistance appreciated - s/p bedside debridement 01/07/21 - cultures + MRSA, pseudo - add levaquin, continue vanco for now - Blood cultures negative to date #Weakness - Potentially secondary to pain, diabetic neuropathy, tardive dyskinesia - pt/ot - CT head negative #SIRS - resolved #Hypomagnesemia - Patient received 400mg mag oxide po in ed - continue to follow and replete as needed #Diabetic ulcer - Patient underwent debridement 01/03 - wound care pending - discussed with dr hutton, possible consult on saturday - podiatry c/s pending # DM - Sliding scale, hypoglycemic protocol # HTN - continue nifedipine # hypothyroidism - continue levothyroxine #schizophrenia - continue risperdal, abilify #DVT prophylaxis - Teds and scds Dispo: advanced wound care consult probable on Saturday; discussed at length with sister Ludmila Flores, , iv antibiotics VS,Fishbone, I+O VS, Fishbone, I+O Laboratory Tests 01/08/21 05:26 Vital Signs Date Time Temp Pulse Resp B/P (MAP) Pulse Ox O2 Delivery O2 Flow Rate FiO2 01/08/21 08:46 105/64 01/08/21 06:00 97.3 72 18 93 Room Air I&O- Last 24 Hours up to 6 AM0 01/08/21 06:00 Intake Total 2822 ml Output Total 1000 ml Balance 1822 ml BENTLEY WALLACE MD January 08, 2021 09:24
[2021-01-08] MEDS ORDERED: MAG SULF 1GM/100ML (MAG RUN) 1 GM in IV 1 EA IV ONE (10:00)
[2021-01-08] MEDS: LORATADINE 10 MG TAB PO SCH (20:03)
[2021-01-08] MEDS: ARIPiprazole 10 MG TAB PO SCH (20:03)
[2021-01-08 21:00] VITALS: BP 103/62
[2021-01-09] MEDS: VANCOMYCIN HCL 1,000 MG, VIAL MATE ADAPTER 1 EACH in NS 250 ML IV SCH (03:11)
[2021-01-09] MEDS: LevoFLOXacin 750 MG TABLET PO SCH (06:11)
[2021-01-09] MEDS: LEVOTHYROXINE 50MCG TABLET (0.05MG) PO SCH (06:11)
[2021-01-09 06:29] VITALS: BP 122/63
[2021-01-09 06:45] VITALS: BP 112/64
[2021-01-09 06:52] LABS: HEMATOCRIT 31.1 % (36.0-47.0); HEMOGLOBIN 9.4 g/dl (12.0-15.5); MEAN CORPUSCULAR HGB CONC 30.2 g/dl (32.0-36.5); MEAN CORPUSCULAR VOLUME 89.4 fl (80.0-96.0); PLATELET COUNT, AUTOMATED 269 10^3/uL (150-450); RED BLOOD COUNT 3.48 10^6/uL (4.00-5.40); WHITE BLOOD COUNT 11.2 10^3/uL (4.0-10.0)
[2021-01-09 07:18] LABS: BLOOD UREA NITROGEN 11 MG/DL (7-18); CARBON DIOXIDE LEVEL 28 MEQ/L (21-32); CHLORIDE LEVEL 104 MEQ/L (98-107); CREATININE FOR GFR 0.44 MG/DL (0.55-1.30); GLOMERULAR FILTRATION RATE > 60.0 (>45); GLUCOSE, FASTING 298 MG/DL (70-100); MAGNESIUM LEVEL 1.8 MG/DL (1.8-2.4); POTASSIUM SERUM 3.8 MEQ/L (3.5-5.1); SODIUM LEVEL 139 MEQ/L (136-145)
[2021-01-09] MEDS: NIFEdipine 30 MG XL TAB PO SCH (09:00)
[2021-01-09] MEDS: DOCUSATE SODIUM 100MG CAPSULE PO SCH ×2 (09:00→20:09)
[2021-01-09] MEDS: HumaLOG INSULIN (NovoLOG) PER UNIT SC SCH ×4 (09:19→20:08)
[2021-01-09] MEDS: FERROUS SULFATE 325MG TAB PO SCH (09:19)
[2021-01-09] MEDS: MULTIVITAMINS/MINERALS THERAP 1 TAB PO SCH (09:19)
[2021-01-09] MEDS: risperiDONE 2 MG TAB PO SCH ×2 (09:19→20:08)
[2021-01-09] MEDS: CYANOCOBALAMIN 500 MCG TAB PO SCH (09:20)
[2021-01-09] MEDS: ASPIRIN 81MG ENTERIC TABLET PO SCH (09:20)
[2021-01-09] MEDS: VITAMIN D 1,000 INTERNATIONAL UNITS TABLET PO SCH (09:20)
[2021-01-09] MEDS: CALCIUM/VITAMIN D 500 MG TAB PO SCH ×2 (09:24→20:09)
--- NOTE | 2021-01-09 10:36 | IPNPDOC ---
Text Note Date of Service The patient was seen on 01/09/21. NOTE Subjective: Patient seen and examined at bedside. No acute overnight events reported. Patient voices no new medical complaints this morning. She is concerned about her blood sugars. Objective: General: NAD, lying comfortably in bed, hirsute HEENT: NC/AT, EOMI Lungs; CTA B/L Heart: +S1S2, RRR Abd: soft, NT, +BS, obese Ext: peripheral edema, RLE bandages in place A/P: 65F with PMHx of schizophrenia, tardive dyskinesias, htn, hypothyroidism and DM2 who presents to the ED after suffering a fall the night of 01/03. Patient states that she has been following wound clinic Dr. Hutton for a diabetic foot ulcer right foot and that earlier in the day she had an appointment and underwent a debridement. Patient states that after the debridement, she was having pain in her right foot and it made it difficult for her to stand up out of a chair, so she slid out and fell. Patient states that she feels as though the pain was the cause of her fall. #Foot wounds - discussed with dr hutton - wound care instructions provided - telemedicine c/s pending - podiatry consulted - assistance appreciated - s/p bedside debridement 01/07/21 - cultures + MRSA, pseudo - continue levaquin, bactrim - Blood culture negative to date #Weakness - Potentially secondary to pain, diabetic neuropathy, tardive dyskinesia - pt/ot - CT head negative #SIRS - resolved #Hypomagnesemia - Patient received 400mg mag oxide po in ed - continue to follow and replete as needed #Diabetic ulcer - Patient underwent debridement 01/03 - wound care pending - discussed with dr hutton, consult pending - podiatry assistance appreciated # DM - Sliding scale, hypoglycemic protocol - consider adding basal insulin # HTN - continue nifedipine # hypothyroidism - continue levothyroxine #schizophrenia - continue risperdal, abilify #DVT prophylaxis - Teds and scds Dispo: advanced wound care consult pending; discussed at length with sister Ludmila Flores, [phone] VS,Fishbone, I+O VS, Fishbone, I+O Laboratory Tests 01/09/21 06:02 Vital Signs Date Time Temp Pulse Resp B/P (MAP) Pulse Ox O2 Delivery O2 Flow Rate FiO2 01/09/21 09:00 125/60 01/09/21 06:45 78 01/09/21 06:29 98.6 18 93 Room Air I&O- Last 24 Hours up to 6 AM 01/09/21 06:00 Intake Total 2910 ml Output Total 900 ml Balance 2009 ml BENTLEY WALLACE MD January 09, 2021 10:35
[2021-01-09 11:04] LABS: C REACTIVE PROTEIN QUANTITATIV 8.64 MG/DL (0.00-0.30)
[2021-01-09] MEDS: BACTRIM 160MG/800MG DS TAB PO SCH ×2 (12:24→20:09)
[2021-01-09 14:00] VITALS: BP 128/58
--- NOTE | 2021-01-09 16:58 | REP ---
INDICATION: peripheral arterial disease - right lower extremity. COMPARISON: None. TECHNIQUE: Real time james scale and Duplex Doppler evaluation of the right lower extremity arterial vasculature using linear high frequency transducer. FINDINGS: Duplex doppler interrogation demonstrates normal triphasic waveforms of common femoral and superficial femoral artery, with monophasic waveforms distal to that. Distal anterior and posterior tibial arteries could not be imaged to due to overlying dressing and boot. More proximally there is no evidence of hemodynamically significant stenosis or occlusion. PSV(cm/sec) Common femoral artery: 87 cm/s Profunda femoris artery: 53 cm/s Proximal superficial femoral artery: 123 cm/s Mid superficial femoral artery: 117 cm/s Distal superficial femoral artery: 86 cm/s Popliteal artery: 73 cm/s Proximal MOON: 86 cm/s Tibioperoneal trunk: 113 cm/s Proximal PARTS PRODUCT ANALYST: 63 cm/s IMPRESSION: Triphasic waveforms right common femoral and superficial femoral arteries, monophasic waveform in the popliteal artery and proximal anterior and posterior tibial arteries. No evidence of hemodynamically significant stenosis or arterial occlusion. <Electronically signed by Bi James > 01/09/21 0233
--- NOTE | 2021-01-09 19:09 | CR ---
ADVANCED WOUND CARE CONSULTATION Consult is via telemedicine. Patient identified and verbal consent obtained DATE: 01/09/2021 REQUESTING PHYSICIAN: Dr. Brasher REASON FOR CONSULTATION: Wound Care Telemedicine provides a visual assessment of a wound without the benefit of physical examination. It can assist with establishing a diagnosis and etiology. This allows for an initial treatment plan. As wounds often change, it may be necessary to modify the original care. Our recommendation is periodic wound reassessment to monitor the treatment. Failure to comply may result in non-healing of the wound, possible complications and/or a poor outcome. The recommendations given will serve as a treatment option. As I will not be following this patient, this care plan will require the attending physician to give and sign the orders. Upon discharge outpatient follow up can be scheduled at our [facility]. HISTORY OF PRESENT ILLNESS: A 65-year-old female recently evaluated at our [facility] for a right heel wound. This was dbrided and the patient was started on Hydrofera Blue Classic Foam Dressings. She fell at home and was admitted to the hospital. No fractures were reported and no trauma indicated except for a second wound involving her right foot. I was asked to participate in her care and give treatment suggestions. The patient's right heel area shows a wound measuring 3.2 cm by 3.7 cm with a wound depth of 1.8 cm. This wound base shows small areas of granulation tissue but areas of fibrin slough. There are no deep structures noted. On the medial inframalleolar area there is a new wound measuring 0.7 cm by 0.7 cm with a wound depth of 1.4 cm. The wound base could not be visualized via telemedicine. Wound edges appear attached and there is no undermining noted. Drainage for both wounds is serosanguinous without odor. Periwounds for both wounds show no erythema, maceration or ischemic change. The patient has been afebrile during her hospital course and has a white count of 11.2. She does not appear to be significantly in pain and has requested discharge which will be up to her attending. In terms of treatment, both wounds should be cleansed with Vashe Wound Cleanser, utilizing 4 by 4 gauze sponges. This should then be followed with Hydrofera Blue cut to the size of the wound. When using Hydrofera Blue Classic, this has to be moistened with saline. Optilock dressings should then cover the Hydrofera Blue and should be secured with a Kerlix and/or cling wrap. Heel flow boot is mandatory and should be used at all times for offloading purposes. An ABD pad should be placed under the Velcro strap on the anterior aspect to avoid any local trauma. The patient was started on IV antibiotics and has been converted over to Bactrim. From my standpoint, there is no indication for oral antibiotic therapy. The patient had an arterial ultrasound which is pending. Upon discharge please notify the Clinic so follow up arrangements can be made to continue the patient's care. FITO
[2021-01-09] MEDS: ARIPiprazole 10 MG TAB PO SCH (20:09)
[2021-01-09] MEDS: LORATADINE 10 MG TAB PO SCH (20:09)
[2021-01-09 22:00] VITALS: BP 117/64
[2021-01-10] MEDS: LevoFLOXacin 750 MG TABLET PO SCH (05:51)
[2021-01-10] MEDS: LEVOTHYROXINE 50MCG TABLET (0.05MG) PO SCH (05:51)
[2021-01-10 06:00] VITALS: BP 115/65
[2021-01-10 06:28] LABS: HEMATOCRIT 31.9 % (36.0-47.0); HEMOGLOBIN 9.7 g/dl (12.0-15.5); MEAN CORPUSCULAR HEMOGLOBIN 27.4 pg (27.0-33.0); MEAN CORPUSCULAR HGB CONC 30.4 g/dl (32.0-36.5); MEAN CORPUSCULAR VOLUME 90.1 fl (80.0-96.0); PLATELET COUNT, AUTOMATED 289 10^3/uL (150-450); RED BLOOD COUNT 3.54 10^6/uL (4.00-5.40); WHITE BLOOD COUNT 11.1 10^3/uL (4.0-10.0)
[2021-01-10 06:47] LABS: BLOOD UREA NITROGEN 13 MG/DL (7-18); CALCIUM LEVEL 8.5 MG/DL (8.8-10.2); CARBON DIOXIDE LEVEL 27 MEQ/L (21-32); CHLORIDE LEVEL 103 MEQ/L (98-107); CREATININE FOR GFR 0.61 MG/DL (0.55-1.30); GLOMERULAR FILTRATION RATE > 60.0 (>45); GLUCOSE, FASTING 327 MG/DL (70-100); MAGNESIUM LEVEL 1.8 MG/DL (1.8-2.4); POTASSIUM SERUM 3.4 MEQ/L (3.5-5.1); SODIUM LEVEL 137 MEQ/L (136-145)
[2021-01-10] MEDS: NIFEdipine 30 MG XL TAB PO SCH (08:14)
[2021-01-10] MEDS: VITAMIN D 1,000 INTERNATIONAL UNITS TABLET PO SCH (08:15)
[2021-01-10] MEDS: CYANOCOBALAMIN 500 MCG TAB PO SCH (08:15)
[2021-01-10] MEDS: risperiDONE 2 MG TAB PO SCH ×2 (08:15→20:24)
[2021-01-10] MEDS: CALCIUM/VITAMIN D 500 MG TAB PO SCH ×2 (08:15→20:24)
[2021-01-10] MEDS: FERROUS SULFATE 325MG TAB PO SCH (08:15)
[2021-01-10] MEDS: HumaLOG INSULIN (NovoLOG) PER UNIT SC SCH ×4 (08:15→20:24)
[2021-01-10] MEDS: ASPIRIN 81MG ENTERIC TABLET PO SCH (08:15)
[2021-01-10] MEDS: BACTRIM 160MG/800MG DS TAB PO SCH ×2 (08:15→20:25)
[2021-01-10] MEDS: MULTIVITAMINS/MINERALS THERAP 1 TAB PO SCH (08:15)
[2021-01-10] MEDS: DOCUSATE SODIUM 100MG CAPSULE PO SCH ×2 (08:15→20:25)
--- NOTE | 2021-01-10 11:15 | IPNPDOC ---
Text Note Date of Service The patient was seen on 01/10/21. NOTE Subjective: Patient was seen and examined this morning at bedside. Patient tells me she's feeling well she is eager to go home. No acute overnight events reported to me. Objective: Constitutional: Awake and alert, in no apparent distress ENT: Sclera are clear. Mucosa is moist. Respiratory: Lungs CTA bilaterally. No respiratory distress. Cardiovascular: RRR S1 and S2 are normal Gastrointestinal: Abdomen is soft, non distended, non tender, BS present. Obese. Musculoskeletal: Peripheral edema. Right lower extremity bandages in place. Wound care per Dr. Hutton. Mental Status: normal affect Assessment/plan: 65F with PMHx of schizophrenia, tardive dyskinesias, htn, hypothyroidism and DM2 who presents to the ED after suffering a fall the night of 01/03. Patient states that she has been following wound clinic Dr. Hutton for a diabetic foot ulcer right foot and that earlier in the day she had an appointment and underwent a debridement. Patient states that after the debridement, she was having pain in her right foot and it made it difficult for her to stand up out of a chair, so she slid out and fell. Patient states that she feels as though the pain was the cause of her fall. Patient was medically clear for discharge to home and follow-up with Dr. Hutton in the clinic. Unfortunately didn't pass physical therapy home safety evaluation and patient was changed to a status on 01/10/2031. #Foot wounds - discussed with dr hutton - wound care instructions provided - telemedicine - podiatry consulted - s/p bedside debridement 01/07/21. Dr Chin ok for patient to be discharged on levaquin. - cultures + MRSA, pseudo - continue levaquin, bactrim - Blood culture negative to date #Weakness - Potentially secondary to pain, diabetic neuropathy, tardive dyskinesia - pt/ot, didn't clear patient, may need subacute rehab. - CT head negative #Diabetic ulcer - Patient underwent debridement 01/03 - discussed with dr hutton, who will follow up with her in clinic #SIRS, resolved #Hypomagnesemia, resolved. # DM: Sliding scale, hypoglycemic protocol # HTN: continue nifedipine # hypothyroidism: continue levothyroxine #schizophrenia: continue risperdal, abilify #DVT prophylaxis: Teds and scds Dispo: medically cleared for discharge with followup with wound care Dr Hutton. Didn't pass PT eval. sister Ludmila Flores, [phone] A [facility] Kenton LUCERO, I+O Kenton LUCERO I+O Laboratory Tests 01/10/21 06:09 Vital Signs Date Time Temp Pulse Resp B/P (MAP) Pulse Ox O2 Delivery O2 Flow Rate FiO2 01/10/21 08:14 110/48 01/10/21 06:00 98.0 75 17 95 01/09/21 22:00 Room Air I&O- Last 24 Hours up to 6 AM 01/10/21 05:59 Intake Total 2390 ml Output Total 2250 ml Balance 140 ml REGGIE ROE MD January 10, 2021 11:15
[2021-01-10] MEDS ORDERED: POTASSIUM CHLORIDE 10 MEQ SR TABLET PO ONE (11:40)
[2021-01-10] MEDS: ARIPiprazole 10 MG TAB PO SCH (20:24)
[2021-01-10] MEDS: LORATADINE 10 MG TAB PO SCH (20:25)
[2021-01-11] MEDS: LEVOTHYROXINE 50MCG TABLET (0.05MG) PO SCH (05:18)
[2021-01-11] MEDS: LevoFLOXacin 750 MG TABLET PO SCH (05:18)
[2021-01-11 06:00] VITALS: BP 119/66
[2021-01-11 06:28] LABS: HEMATOCRIT 32.1 % (36.0-47.0); HEMOGLOBIN 9.7 g/dl (12.0-15.5); MEAN CORPUSCULAR HEMOGLOBIN 27.1 pg (27.0-33.0); MEAN CORPUSCULAR HGB CONC 30.2 g/dl (32.0-36.5); MEAN CORPUSCULAR VOLUME 89.7 fl (80.0-96.0); PLATELET COUNT, AUTOMATED 269 10^3/uL (150-450); RED BLOOD COUNT 3.58 10^6/uL (4.00-5.40); WHITE BLOOD COUNT 9.5 10^3/uL (4.0-10.0)
[2021-01-11 06:46] LABS: BLOOD UREA NITROGEN 12 MG/DL (7-18); CALCIUM LEVEL 8.2 MG/DL (8.8-10.2); CARBON DIOXIDE LEVEL 26 MEQ/L (21-32); CHLORIDE LEVEL 102 MEQ/L (98-107); CREATININE FOR GFR 0.53 MG/DL (0.55-1.30); GLOMERULAR FILTRATION RATE > 60.0 (>45); GLUCOSE, FASTING 298 MG/DL (70-100); MAGNESIUM LEVEL 1.7 MG/DL (1.8-2.4); POTASSIUM SERUM 3.7 MEQ/L (3.5-5.1); SODIUM LEVEL 136 MEQ/L (136-145)
[2021-01-11] MEDS: DOCUSATE SODIUM 100MG CAPSULE PO SCH ×2 (08:11→21:00)
[2021-01-11] MEDS: NIFEdipine 30 MG XL TAB PO SCH (08:11)
[2021-01-11] MEDS: HumaLOG INSULIN (NovoLOG) PER UNIT SC SCH ×4 (08:12→21:21)
[2021-01-11] MEDS: MULTIVITAMINS/MINERALS THERAP 1 TAB PO SCH (08:12)
[2021-01-11] MEDS: CALCIUM/VITAMIN D 500 MG TAB PO SCH ×2 (08:12→21:21)
[2021-01-11] MEDS: ASPIRIN 81MG ENTERIC TABLET PO SCH (08:12)
[2021-01-11] MEDS: BACTRIM 160MG/800MG DS TAB PO SCH ×2 (08:13→21:21)
[2021-01-11] MEDS: FERROUS SULFATE 325MG TAB PO SCH (08:13)
[2021-01-11] MEDS: CYANOCOBALAMIN 500 MCG TAB PO SCH (08:13)
[2021-01-11] MEDS: risperiDONE 2 MG TAB PO SCH ×2 (08:13→21:21)
[2021-01-11] MEDS: VITAMIN D 1,000 INTERNATIONAL UNITS TABLET PO SCH (08:13)
[2021-01-11] MEDS: ARIPiprazole 10 MG TAB PO SCH (21:20)
[2021-01-11] MEDS: LORATADINE 10 MG TAB PO SCH (21:21)
[2021-01-12] MEDS: LevoFLOXacin 750 MG TABLET PO SCH (05:42)
[2021-01-12] MEDS: LEVOTHYROXINE 50MCG TABLET (0.05MG) PO SCH (05:42)
[2021-01-12 06:00] VITALS: BP 107/54
[2021-01-12] MEDS: ASPIRIN 81MG ENTERIC TABLET PO SCH (08:02)
[2021-01-12] MEDS: BACTRIM 160MG/800MG DS TAB PO SCH ×2 (08:02→21:33)
[2021-01-12] MEDS: HumaLOG INSULIN (NovoLOG) PER UNIT SC SCH ×4 (08:02→21:34)
[2021-01-12] MEDS: MULTIVITAMINS/MINERALS THERAP 1 TAB PO SCH (08:02)
[2021-01-12] MEDS: CALCIUM/VITAMIN D 500 MG TAB PO SCH ×2 (08:03→21:33)
[2021-01-12] MEDS: NIFEdipine 30 MG XL TAB PO SCH (08:03)
[2021-01-12] MEDS: DOCUSATE SODIUM 100MG CAPSULE PO SCH ×2 (08:03→21:33)
[2021-01-12] MEDS: VITAMIN D 1,000 INTERNATIONAL UNITS TABLET PO SCH (08:03)
[2021-01-12] MEDS: CYANOCOBALAMIN 500 MCG TAB PO SCH (08:03)
[2021-01-12] MEDS: risperiDONE 2 MG TAB PO SCH ×2 (08:03→21:33)
[2021-01-12] MEDS: FERROUS SULFATE 325MG TAB PO SCH (08:03)
[2021-01-12 14:00] VITALS: BP 130/86
[2021-01-12] MEDS: ACETAMINOPHEN TAB 650MG DOSE (2X325MG) PO PRN (16:23)
[2021-01-12] MEDS: ARIPiprazole 10 MG TAB PO SCH (21:33)
[2021-01-12] MEDS: LORATADINE 10 MG TAB PO SCH (21:33)
[2021-01-13 06:00] VITALS: BP 124/54
[2021-01-13] MEDS: LEVOTHYROXINE 50MCG TABLET (0.05MG) PO SCH (06:12)
[2021-01-13] MEDS: LevoFLOXacin 750 MG TABLET PO SCH (06:12)
[2021-01-13] MEDS: ASPIRIN 81MG ENTERIC TABLET PO SCH (08:47)
[2021-01-13] MEDS: BACTRIM 160MG/800MG DS TAB PO SCH ×2 (08:47→21:29)
[2021-01-13] MEDS: VITAMIN D 1,000 INTERNATIONAL UNITS TABLET PO SCH (08:47)
[2021-01-13] MEDS: NYSTATIN 100,000 UNITS/GM TOPICAL PWD 15 GM TOP PRN (08:47)
[2021-01-13] MEDS: MULTIVITAMINS/MINERALS THERAP 1 TAB PO SCH (08:47)
[2021-01-13] MEDS: HumaLOG INSULIN (NovoLOG) PER UNIT SC SCH ×4 (08:47→21:28)
[2021-01-13] MEDS: FERROUS SULFATE 325MG TAB PO SCH (08:48)
[2021-01-13] MEDS: CALCIUM/VITAMIN D 500 MG TAB PO SCH ×2 (08:48→21:28)
[2021-01-13] MEDS: CYANOCOBALAMIN 500 MCG TAB PO SCH (08:48)
[2021-01-13] MEDS: NIFEdipine 30 MG XL TAB PO SCH (08:48)
[2021-01-13] MEDS: risperiDONE 2 MG TAB PO SCH ×2 (08:48→21:28)
[2021-01-13] MEDS: ACETAMINOPHEN TAB 650MG DOSE (2X325MG) PO PRN ×2 (08:49→21:28)
[2021-01-13] MEDS: DOCUSATE SODIUM 100MG CAPSULE PO SCH ×2 (08:53→21:29)
[2021-01-13] MEDS ORDERED: BACTDSTA PO (12:25)
[2021-01-13] MEDS ORDERED: LEVO750T13 PO (12:25)
--- NOTE | 2021-01-13 12:28 | DS.PDOC ---
Discharge Summary General Date of Admission January 06, 2021 at 16:27 Discharge Summary PROCEDURES PERFORMED DURING STAY: [None]. ADMITTING DIAGNOSES: 1. . DISCHARGE DIAGNOSES: 1. . COMPLICATIONS/CHIEF COMPLAINT: Decubitus Ulcer Of Right Foot, Stage 1. HISTORY OF PRESENT ILLNESS: . HOSPITAL COURSE: . DISCHARGE MEDICATIONS: Please see below. ALLERGIES: Please see below. PHYSICAL EXAMINATION ON DISCHARGE: VITAL SIGNS: Please see below. GENERAL: HEENT: NECK: CARDIOVASCULAR EXAMINATION: RESPIRATORY EXAMINATION: ABDOMINAL EXAMINATION: EXTREMITIES: SKIN: NEUROLOGICAL EXAMINATION: PSYCHIATRIC EXAMINATION: LABORATORY DATA: Please see below. IMAGING: PROGNOSIS: ACTIVITY: [As tolerated]. DIET: DISCHARGE PLAN: DISPOSITION: . DISCHARGE INSTRUCTIONS: 1. . ITEMS TO FOLLOWUP ON ON OUTPATIENT: 1. . DISCHARGE CONDITION: [Stable]. TIME SPENT ON DISCHARGE: Greater than minutes. Vital Signs/I&Os Vital Signs Date Time Temp Pulse Resp B/P (MAP) Pulse Ox O2 Delivery O2 Flow Rate FiO2 01/13/21 08:48 124/59 01/13/21 06:00 98.2 68 17 97 Room Air I&O- Last 24 Hours up to 6 AM 01/13/21 06:00 Intake Total 1500 ml Output Total 3025 ml Balance -1525 ml Laboratory Data Labs 24H Laboratory Tests 2 01/12/21 17:14: Bedside Glucose (Misc Panel) 295H 01/12/21 20:24: Bedside Glucose (Misc Panel) 288H 01/13/21 05:59: Bedside Glucose (Misc Panel) 289H 01/13/21 06:39: Bedside Glucose (Misc Panel) 303H 01/13/21 11:48: Bedside Glucose (Misc Panel) 236H FSBS Laboratory Tests Test 01/12/21 17:14 01/12/21 20:24 01/13/21 05:59 01/13/21 06:39 Range/Units Bedside Glucose (Misc Panel) 295 288 289 303 80-115 MG/DL Test 01/13/21 11:48 Range/Units Bedside Glucose (Misc Panel) 236 80-115 MG/DL Microbiology Microbiology 01/06/21 Gram Stain - Final, Complete 01/06/21 Wound Culture - Final, Complete Staph.aureus Methicillin Resis 01/06/21 Gram Stain - Final, Complete 01/06/21 Wound Culture - Final, Complete Pseudomonas Aeruginosa Staph.aureus Methicillin Resis 01/05/21 Blood Culture - Final, Complete NO GROWTH AFTER 5 DAYS 01/04/21 Respiratory Virus Panel (PCR) (NICO) - Final, Complete Discharge Medications Scheduled Acetaminophen (Tylenol Arthritis) 650 Mg Tablet.er, 650 MG PO Q8H, (Reported) Aripiprazole (Abilify) 10 Mg Tablet, 10 MG PO QHS, (Reported) Aspirin (Aspirin EC) 81 Mg Tablet.dr, 81 MG PO DAILY, (Reported) Calcium Carbonate/Vitamin D3 (Calcium 500-Vit D3 200 Tablet) 1 Each Tablet, 1 TAB PO BID, (Reported) Cholecalciferol (Vitamin D3) (Vitamin D3) 1,000 Unit Tablet, 1,000 UNITS PO DAILY, (Reported) Cyanocobalamin (Vitamin B-12) (Vitamin B-12) 500 Mcg Tablet, 500 MCG PO DAILY, (Reported) Ferrous Sulfate (Ferrous Sulfate) 325 Mg Tablet, 325 MG PO DAILY, (Reported) Glipizide (Glipizide ER) 2.5 Mg Tab.er.24, 2.5 MG PO BID, (Reported) Levofloxacin (Levofloxacin) 750 Mg Tablet, 750 MG PO DAILY@06 Levothyroxine Sodium (Synthroid) 50 Mcg Tablet, 50 MCG PO DAILY, (Reported) Loratadine (Loratadine) 10 Mg Tablet, 10 MG PO QHS, (Reported) Metformin HCl (Metformin HCl) 1,000 Mg Tablet, 1,000 MG PO BID, (Reported) Multivitamins (Thera M Plus Tablet) 1 Each Tablet, 1 TAB PO DAILY, (Reported) Nifedipine (Nifedipine ER) 60 Mg Tab.er.24, 60 MG PO DAILY, (Reported) Risperidone (Risperidone) 2 Mg Tablet, 2 MG PO BID, (Reported) Sitagliptin Phosphate (Januvia) 100 Mg Tablet, 100 MG PO DAILY, (Reported) Sulfamethoxazole/Trimethoprim (Sulfamethoxazole-Tmp Ds Tablet) 1 Each Tablet, 1 TAB PO BID Scheduled PRN Mupirocin (Mupirocin) 30 Gm Cream..g., 1 DOSE TOP BID PRN for SKIN INFECTION, (Reported) APPLIES TO RIGHT FOOT Allergies Coded Allergies: CASSIE Inhibitors (Verified Allergy, Unknown, 11/24/20) Penicillins (Verified Allergy, Unknown, 11/24/20) chlorpromazine (Verified Allergy, Unknown, 11/24/20) haloperidol (Verified Allergy, Unknown, 11/24/20) REGGIE ROE MD January 13, 2021 12:28
[2021-01-13] MEDS: LORATADINE 10 MG TAB PO SCH (21:28)
[2021-01-13] MEDS: ARIPiprazole 10 MG TAB PO SCH (21:29)
[2021-01-14] MEDS ORDERED: BACTRIM 160MG/800MG DS TAB PO ONE (00:29)
[2021-01-14 06:00] VITALS: BP 109/56
[2021-01-14] MEDS: LevoFLOXacin 750 MG TABLET PO SCH (06:40)
[2021-01-14] MEDS: LEVOTHYROXINE 50MCG TABLET (0.05MG) PO SCH (06:40)
[2021-01-14 08:30] VITALS: BP 118/86
[2021-01-14] MEDS: ASPIRIN 81MG ENTERIC TABLET PO SCH (08:44)
[2021-01-14] MEDS: risperiDONE 2 MG TAB PO SCH ×2 (08:44→21:28)
[2021-01-14] MEDS: HumaLOG INSULIN (NovoLOG) PER UNIT SC SCH ×4 (08:44→21:29)
[2021-01-14] MEDS: MULTIVITAMINS/MINERALS THERAP 1 TAB PO SCH (08:46)
[2021-01-14] MEDS: CALCIUM/VITAMIN D 500 MG TAB PO SCH ×2 (08:46→21:29)
[2021-01-14] MEDS: DOCUSATE SODIUM 100MG CAPSULE PO SCH ×2 (08:46→21:28)
[2021-01-14] MEDS: VITAMIN D 1,000 INTERNATIONAL UNITS TABLET PO SCH (08:46)
[2021-01-14] MEDS: NIFEdipine 30 MG XL TAB PO SCH (09:00)
[2021-01-14] MEDS: FERROUS SULFATE 325MG TAB PO SCH (09:53)
[2021-01-14] MEDS: CYANOCOBALAMIN 500 MCG TAB PO SCH (10:16)
[2021-01-14] MEDS: LORATADINE 10 MG TAB PO SCH (21:28)
[2021-01-14] MEDS: ACETAMINOPHEN TAB 650MG DOSE (2X325MG) PO PRN (21:29)
[2021-01-14] MEDS: ARIPiprazole 10 MG TAB PO SCH (21:29)
[2021-01-15 06:00] VITALS: BP 113/58
[2021-01-15] MEDS ORDERED: LevoFLOXacin 750 MG TABLET PO SCH (06:00)
[2021-01-15] MEDS: LEVOTHYROXINE 50MCG TABLET (0.05MG) PO SCH (06:16)
[2021-01-15] MEDS: LevoFLOXacin 750 MG TABLET PO SCH (06:16)
[2021-01-15] MEDS: HumaLOG INSULIN (NovoLOG) PER UNIT SC SCH ×4 (08:57→20:37)
[2021-01-15] MEDS: CALCIUM/VITAMIN D 500 MG TAB PO SCH ×2 (08:57→20:36)
[2021-01-15] MEDS: DOCUSATE SODIUM 100MG CAPSULE PO SCH ×2 (08:57→20:36)
[2021-01-15] MEDS: FERROUS SULFATE 325MG TAB PO SCH (08:58)
[2021-01-15] MEDS: CYANOCOBALAMIN 500 MCG TAB PO SCH (08:58)
[2021-01-15] MEDS: ASPIRIN 81MG ENTERIC TABLET PO SCH (08:58)
[2021-01-15] MEDS: VITAMIN D 1,000 INTERNATIONAL UNITS TABLET PO SCH (08:58)
[2021-01-15] MEDS: risperiDONE 2 MG TAB PO SCH ×2 (08:58→20:36)
[2021-01-15] MEDS: NIFEdipine 30 MG XL TAB PO SCH (09:00)
[2021-01-15] MEDS ORDERED: BACTRIM 160MG/800MG DS TAB PO SCH (09:00)
[2021-01-15] MEDS: MULTIVITAMINS/MINERALS THERAP 1 TAB PO SCH (09:01)
[2021-01-15] MEDS: LORATADINE 10 MG TAB PO SCH (20:36)
[2021-01-15] MEDS: ARIPiprazole 10 MG TAB PO SCH (20:36)
[2021-01-16] MEDS: LEVOTHYROXINE 50MCG TABLET (0.05MG) PO SCH (05:46)
[2021-01-16] MEDS: LevoFLOXacin 750 MG TABLET PO SCH (05:47)
[2021-01-16 06:00] VITALS: BP 117/57
[2021-01-16 08:41] VITALS: BP 126/60
[2021-01-16] MEDS: CYANOCOBALAMIN 500 MCG TAB PO SCH (08:41)
[2021-01-16] MEDS: HumaLOG INSULIN (NovoLOG) PER UNIT SC SCH (08:41)
[2021-01-16] MEDS: ASPIRIN 81MG ENTERIC TABLET PO SCH (08:41)
[2021-01-16] MEDS: MULTIVITAMINS/MINERALS THERAP 1 TAB PO SCH (08:41)
[2021-01-16] MEDS: NIFEdipine 30 MG XL TAB PO SCH (08:41)
[2021-01-16] MEDS: risperiDONE 2 MG TAB PO SCH (08:41)
[2021-01-16] MEDS: VITAMIN D 1,000 INTERNATIONAL UNITS TABLET PO SCH (08:42)
[2021-01-16] MEDS: FERROUS SULFATE 325MG TAB PO SCH (08:42)
[2021-01-16] MEDS: DOCUSATE SODIUM 100MG CAPSULE PO SCH (08:42)
[2021-01-16] MEDS: CALCIUM/VITAMIN D 500 MG TAB PO SCH (08:42)
--- NOTE | 2021-01-16 13:08 | DS.PDOC ---
Discharge Summary General Date of Admission January 06, 2021 at 16:27 Date of Discharge 01/16/2021 Attending Physician: ANUP HIGUERA MD Discharge Summary PROCEDURES PERFORMED DURING STAY: None ADMITTING DIAGNOSES: Mechanical fall R foot ulcer pain Inability to ambulate safely for home discharge DISCHARGE DIAGNOSES: Decubitus ulcer of right foot schizophrenia tardive dyskinesias htn hypothyroidism DM2 COMPLICATIONS/CHIEF COMPLAINT: Decubitus Ulcer Of Right Foot, Stage 1. HISTORY OF PRESENT ILLNESS: 65F with PMHx of schizophrenia, tardive dyskinesias, htn, hypothyroidism and DM2 who presents to the ED after suffering a fall the night of 01/03. Patient stated that she has been following wound clinic Dr. Hutton for a diabetic foot ulcer right foot and that earlier in the day she had an appointment and underwent a debridement. Patient reported that after the debridement, she was having pain in her right foot and it made it difficult for her to stand up out of a chair, so she slid out and fell. HOSPITAL COURSE: Patient was medically cleared for discharge to home and follow-up with Dr. Hutton in the clinic. Unfortunately didn't pass physical therapy home safety evaluation and patient was changed to inpatient status on 01/10/2031 and is now being discharged to the [facility]. Course and plan per issue were as below. #Foot wounds - discussed with dr hutton - wound care instructions provided - telemedicine - podiatry consulted - s/p bedside debridement 01/07/21. Dr Chin ok for patient to be discharged on levaquin. - cultures + MRSA, pseudo - continue levaquin, bactrim - Blood culture negative to date #Weakness - Potentially secondary to pain, diabetic neuropathy, tardive dyskinesia - pt/ot, didn't clear patient, may need subacute rehab. - CT head negative #Diabetic ulcer - Patient underwent debridement 01/03 - discussed with dr hutton, who will follow up with her in clinic #SIRS, resolved #Hypomagnesemia, resolved. # DM: Sliding scale, hypoglycemic protocol # HTN: continue nifedipine # hypothyroidism: continue levothyroxine #schizophrenia: continue risperdal, abilify #DVT prophylaxis: Teds and scds DISCHARGE MEDICATIONS: Please see below. ALLERGIES: Please see below. PHYSICAL EXAMINATION ON DISCHARGE: VITAL SIGNS: Please see below. Constitutional: Awake and alert, in no apparent distress ENT: Sclera are clear. Mucosa is moist. Respiratory: Lungs CTA bilaterally. No respiratory distress. Cardiovascular: RRR S1 and S2 are normal Gastrointestinal: Abdomen is soft, non distended, non tender, BS present. Obese. Musculoskeletal: Peripheral edema. Right lower extremity bandages in place. Mental Status: normal affect LABORATORY DATA: Please see below. IMAGING: UNI LOW EXTREM ARTERIAL LIMITED REASON FOR PATIENT VISIT: DECUBITUS ULCER OF RIGHT FOOT, STAGE 1 REASON FOR EXAM/COMMENT: peripheral arterial disease - right lower extremity FINDINGS: Duplex doppler interrogation demonstrates normal triphasic waveforms of common femoral and superficial femoral artery, with monophasic waveforms distal to that. Distal anterior and posterior tibial arteries could not be imaged to due to overlying dressing and boot. More proximally there is no evidence of hemodynamically significant stenosis or occlusion. PSV(cm/sec) Common femoral artery: 87 cm/s Profunda femoris artery: 53 cm/s Proximal superficial femoral artery: 123 cm/s Mid superficial femoral artery: 117 cm/s Distal superficial femoral artery: 86 cm/s Popliteal artery: 73 cm/s Proximal MOON: 86 cm/s Tibioperoneal trunk: 113 cm/s Proximal PUBLIC UTILITIES SALES REPRESENTATIVE: 63 cm/s IMPRESSION: Triphasic waveforms right common femoral and superficial femoral arteries, monophasic waveform in the popliteal artery and proximal anterior and posterior tibial arteries. No evidence of hemodynamically significant stenosis or arterial occlusion. CXR: No acute pathologies noted CT head: No acute infarcts, bleeding, masses or fracture. PROGNOSIS: Good ACTIVITY: As tolerated DIET: Consistent carb DISCHARGE PLAN: [facility] DISPOSITION: [facility]. DISCHARGE INSTRUCTIONS: [facility] discharge ITEMS TO FOLLOWUP ON ON OUTPATIENT: R foot ulcer care with Dr. Hutton PCP/GP follow up DISCHARGE CONDITION: Stable TIME SPENT ON DISCHARGE: 34 minutes. Vital Signs/I&Os Vital Signs Date Time Temp Pulse Resp B/P (MAP) Pulse Ox O2 Delivery O2 Flow Rate FiO2 01/16/21 08:41 126/60 01/16/21 06:00 97.8 72 18 97 Room Air I&O- Last 24 Hours up to 6 AM 01/16/21 06:00 Intake Total 5310 ml Output Total 4300 ml Balance 1010 ml Laboratory Data Labs 24H Laboratory Tests 2 01/15/21 16:49: Bedside Glucose (Misc Panel) 325H 01/15/21 20:00: Bedside Glucose (Misc Panel) 414H 01/16/21 06:38: Bedside Glucose (Misc Panel) 328H FSBS Laboratory Tests Test 01/15/21 16:49 01/15/21 20:00 01/16/21 06:38 Range/Units Bedside Glucose (Misc Panel) 325 414 328 80-115 MG/DL Microbiology Microbiology 01/06/21 Gram Stain - Final, Complete 01/06/21 Wound Culture - Final, Complete Staph.aureus Methicillin Resis 01/06/21 Gram Stain - Final, Complete 01/06/21 Wound Culture - Final, Complete Pseudomonas Aeruginosa Staph.aureus Methicillin Resis Discharge Medications Scheduled Acetaminophen (Tylenol Arthritis) 650 Mg Tablet.er, 650 MG PO Q8H, (Reported) Aripiprazole (Abilify) 10 Mg Tablet, 10 MG PO QHS, (Reported) Aspirin (Aspirin EC) 81 Mg Tablet.dr, 81 MG PO DAILY, (Reported) Calcium Carbonate/Vitamin D3 (Calcium 500-Vit D3 200 Tablet) 1 Each Tablet, 1 TAB PO BID, (Reported) Cholecalciferol (Vitamin D3) (Vitamin D3) 1,000 Unit Tablet, 1,000 UNITS PO DAILY, (Reported) Cyanocobalamin (Vitamin B-12) (Vitamin B-12) 500 Mcg Tablet, 500 MCG PO DAILY, (Reported) Ferrous Sulfate (Ferrous Sulfate) 325 Mg Tablet, 325 MG PO DAILY, (Reported) Glipizide (Glipizide ER) 2.5 Mg Tab.er.24, 2.5 MG PO BID, (Reported) Levofloxacin (Levofloxacin) 750 Mg Tablet, 750 MG PO DAILY@06 Levothyroxine Sodium (Synthroid) 50 Mcg Tablet, 50 MCG PO DAILY, (Reported) Loratadine (Loratadine) 10 Mg Tablet, 10 MG PO QHS, (Reported) Metformin HCl (Metformin HCl) 1,000 Mg Tablet, 1,000 MG PO BID, (Reported) Multivitamins (Thera M Plus Tablet) 1 Each Tablet, 1 TAB PO DAILY, (Reported) Nifedipine (Nifedipine ER) 60 Mg Tab.er.24, 60 MG PO DAILY, (Reported) Risperidone (Risperidone) 2 Mg Tablet, 2 MG PO BID, (Reported) Sitagliptin Phosphate (Januvia) 100 Mg Tablet, 100 MG PO DAILY, (Reported) Sulfamethoxazole/Trimethoprim (Sulfamethoxazole-Tmp Ds Tablet) 1 Each Tablet, 1 TAB PO BID Scheduled PRN Mupirocin (Mupirocin) 30 Gm Cream..g., 1 DOSE TOP BID PRN for SKIN INFECTION, (Reported) APPLIES TO RIGHT FOOT Allergies Coded Allergies: CASSIE Inhibitors (Verified Allergy, Unknown, 11/24/20) Penicillins (Verified Allergy, Unknown, 11/24/20) chlorpromazine (Verified Allergy, Unknown, 11/24/20) haloperidol (Verified Allergy, Unknown, 11/24/20) ANUP HIGUERA MD January 16, 2021 13:08
[2022-01-14] MEDS ORDERED: LevoFLOXacin 750 MG TABLET PO SCH (06:00)
[2022-01-14] MEDS ORDERED: BACTRIM 160MG/800MG DS TAB PO SCH (09:00)
== END 2021-01-16 10:17 | DRG 623 ==
LOC: M ED 19:05 → M ED INP 01-05 00:49 → ENRESERV 01-05 01:42 → M MSPAV 01-05 02:03 → EEVIPCON 01-06 16:27 → OBSVTOIN 01-06 16:27
PROVIDERS: ADMIT Internal Medicine; ATTEND Family Medicine
PROC: 0JBQ0ZZ Excision of Right Foot Subcutaneous Tissue and Fascia, Open Approach (ICD-10-PCS; principal; 2021-01-07)
DX: E11.621 Type 2 diabetes mellitus with foot ulcer (principal); L97.412 Non-pressure chronic ulcer of right heel and midfoot with fat layer exposed; F20.9 Schizophrenia, unspecified; G24.01 Drug induced subacute dyskinesia; I10 Essential (primary) hypertension; E03.9 Hypothyroidism, unspecified; E11.42 Type 2 diabetes mellitus with diabetic polyneuropathy; E83.42 Hypomagnesemia; Z79.82 Long term (current) use of aspirin; Z79.899 Other long term (current) drug therapy; Z79.84 Long term (current) use of oral hypoglycemic drugs; Z88.0 Allergy status to penicillin; Z88.8 Allergy status to other drugs, medicaments and biological substances

== ENCOUNTER → 2021-03-22 | Outpatient (REF) | payer MEDICARE, MEDICAID ==
[~2021-03-22] MED LIST changes: +ACET650T61 PO; +ASPI-161 PO; +BACTDSTA PO; +D31000TA2 PO; +FERR325T18 PO; +JANU100T PO; +LEVO750T13 PO; +LORA-622 PO; +METF10004 PO; +MUPI30CR TOP; +NIFE1TAB51 PO; +OYST500T91 PO; +RISP-9 PO; +SYNT50TA PO; +VITA-172 PO; +VITMTA PO
== END ==
PROVIDERS: ATTEND Internal Medicine
DX: Z11.2 Encounter for screening for other bacterial diseases (principal)

== ENCOUNTER → 2021-03-29 | Outpatient (CLI) | payer MEDICARE, MEDICAID ==
[2021-03-29 13:45] LABS: BASO % 0.5 % (0.0-1.0); EOS # 0.2 10^3/uL (0.0-0.5); EOS % 2.6 % (0.0-3.0); HEMATOCRIT 38.6 % (36.0-47.0); HEMOGLOBIN 11.9 g/dl (12.0-15.5); LYMPH # 1.7 10^3/uL (1.5-5.0); LYMPH % 25.3 % (24.0-44.0); MEAN CORPUSCULAR HEMOGLOBIN 29.1 pg (27.0-33.0); MEAN CORPUSCULAR HGB CONC 30.8 g/dl (32.0-36.5); MEAN CORPUSCULAR VOLUME 94.4 fl (80.0-96.0); MONO # 0.4 10^3/uL (0.0-0.8); MONO % 6.3 % (2.0-8.0); NEUTROPHILS # 4.3 10^3/uL (1.5-8.5); PLATELET COUNT, AUTOMATED 228 10^3/uL (150-450); RED BLOOD COUNT 4.09 10^6/uL (4.00-5.40); WHITE BLOOD COUNT 6.7 10^3/uL (4.0-10.0)
[2021-03-29 14:19] LABS: HEMOGLOBIN A1c 6.6 %
[2021-03-29 14:22] LABS: CHOLESTEROL RISK RATIO 1.744 (<5); FREE T4 1.18 NG/DL (0.76-1.46); THYROID STIMULATING HORMONE 2.95 uIU/ML (0.358-3.740)
== END ==
LOC: M PLALAB 10:34
PROVIDERS: ATTEND Family Medicine
DX: E11.9 Type 2 diabetes mellitus without complications (principal)

== ENCOUNTER → 2021-07-14 | Outpatient (CLI) | payer MEDICARE, MEDICAID ==
[2021-07-14 13:21] LABS: BASO % 0.6 % (0.0-1.0); EOS # 0.2 10^3/uL (0.0-0.5); EOS % 2.9 % (0.0-3.0); HEMATOCRIT 41.5 % (36.0-47.0); HEMOGLOBIN 12.9 g/dl (12.0-15.5); LYMPH # 1.5 10^3/uL (1.5-5.0); LYMPH % 23.6 % (24.0-44.0); MEAN CORPUSCULAR HEMOGLOBIN 28.5 pg (27.0-33.0); MEAN CORPUSCULAR HGB CONC 31.1 g/dl (32.0-36.5); MEAN CORPUSCULAR VOLUME 91.6 fl (80.0-96.0); MONO # 0.4 10^3/uL (0.0-0.8); MONO % 6.6 % (2.0-8.0); NEUTROPHILS # 4.3 10^3/uL (1.5-8.5); NEUTROPHILS % 65.7 % (36.0-66.0); PLATELET COUNT, AUTOMATED 246 10^3/uL (150-450); RED BLOOD COUNT 4.53 10^6/uL (4.00-5.40); WHITE BLOOD COUNT 6.5 10^3/uL (4.0-10.0)
[2021-07-14 13:47] LABS: HEMOGLOBIN A1c 6.6 %
[2021-07-14 14:05] LABS: ALT/SGPT 23 U/L (12-78); BILIRUBIN,TOTAL 0.4 MG/DL (0.2-1.0); BLOOD UREA NITROGEN 12 MG/DL (7-18); CALCIUM LEVEL 9.7 MG/DL (8.8-10.2); CARBON DIOXIDE LEVEL 27 MEQ/L (21-32); CHLORIDE LEVEL 103 MEQ/L (98-107); CREATININE FOR GFR 0.74 MG/DL (0.55-1.30); FERRITIN 13 NG/ML (8-252); FREE T4 1.41 NG/DL (0.76-1.46); GLOMERULAR FILTRATION RATE > 60.0 (>45); GLUCOSE, FASTING 144 MG/DL (70-100); POTASSIUM SERUM 4.2 MEQ/L (3.5-5.1); PTH INTACT 21.4 PG/ML (18.5-88.0); SODIUM LEVEL 140 MEQ/L (136-145); TOTAL 25(OH) VITAMIN D 58.6 NG/ML (30.0-100.0); TOTAL PROTEIN 7.6 GM/DL (6.4-8.2)
== END ==
LOC: M PLALAB 09:58
PROVIDERS: ATTEND Family Medicine
DX: E11.8 Type 2 diabetes mellitus with unspecified complications (principal)

== ENCOUNTER → 2021-12-27 | Outpatient (CLI) | payer MEDICARE, MEDICAID ==
[~2021-12-27] MED LIST changes: -D31000TA2 PO; +VITA100093 PO
[2021-12-27 09:46] LABS: BASO % 0.6 % (0.0-1.0); EOS # 0.2 10^3/uL (0.0-0.5); EOS % 3.4 % (0.0-3.0); HEMATOCRIT 38.5 % (36.0-47.0); HEMOGLOBIN 12.1 g/dl (12.0-15.5); LYMPH # 1.2 10^3/uL (1.5-5.0); LYMPH % 23.4 % (24.0-44.0); MEAN CORPUSCULAR HEMOGLOBIN 28.5 pg (27.0-33.0); MEAN CORPUSCULAR HGB CONC 31.4 g/dl (32.0-36.5); MEAN CORPUSCULAR VOLUME 90.6 fl (80.0-96.0); MONO # 0.4 10^3/uL (0.0-0.8); NEUTROPHILS # 3.4 10^3/uL (1.5-8.5); NEUTROPHILS % 65.4 % (36.0-66.0); PLATELET COUNT, AUTOMATED 166 10^3/uL (150-450); RED BLOOD COUNT 4.25 10^6/uL (4.00-5.40); WHITE BLOOD COUNT 5.3 10^3/uL (4.0-10.0)
[2021-12-27 10:02] LABS: HEMOGLOBIN A1c 7.4 %
[2021-12-27 10:21] LABS: ALBUMIN 4.1 GM/DL (3.2-5.2); ALT/SGPT 19 U/L (12-78); BILIRUBIN,TOTAL 0.4 MG/DL (0.2-1.0); BLOOD UREA NITROGEN 15 MG/DL (7-18); CALCIUM LEVEL 9.6 MG/DL (8.8-10.2); CARBON DIOXIDE LEVEL 26 MEQ/L (21-32); CHLORIDE LEVEL 108 MEQ/L (98-107); CHOLESTEROL LEVEL 158 MG/DL (<200); CHOLESTEROL RISK RATIO 1.926 (<5); CREATININE FOR GFR 0.52 MG/DL (0.55-1.30); FERRITIN 8 NG/ML (8-252); FREE T4 1.01 NG/DL (0.76-1.46); GLOMERULAR FILTRATION RATE > 60.0 (>45); GLUCOSE, FASTING 175 MG/DL (70-100); HDL CHOLESTEROL 82 MG/DL (>40); LDL CHOLESTEROL 62 MG/DL (<100); NON-HDL-C 76 MG/DL; NT-PRO BNP 44 PG/ML (<125); POTASSIUM SERUM 4.1 MEQ/L (3.5-5.1); SODIUM LEVEL 141 MEQ/L (136-145); TOTAL PROTEIN 7.3 GM/DL (6.4-8.2); TRIGLYCERIDES LEVEL 69 MG/DL (<150)
[2021-12-27 11:02] LABS: VITAMIN B12 LEVEL 767 PG/ML (247-911)
== END ==
LOC: M LAB 08:35
PROVIDERS: ATTEND Family Medicine
DX: D50.9 Iron deficiency anemia, unspecified (principal); E07.9 Disorder of thyroid, unspecified; E78.00 Pure hypercholesterolemia, unspecified

== ENCOUNTER 2022-03-13 08:21 | Inpatient (IN) | payer MEDICARE, MEDICAID ==
[~2022-03-13] VITALS: Ht 162.6 cm; Wt 85.9 kg
[2022-03-13] MEDS ORDERED: NS 1,000 ML IV ONE (12:35)
[2022-03-13 12:59] LABS: BASO % 0.5 % (0.0-1.0); EOS # 0.1 10^3/uL (0.0-0.5); EOS % 1.8 % (0.0-3.0); HEMATOCRIT 36.9 % (36.0-47.0); HEMOGLOBIN 11.9 g/dl (12.0-15.5); LYMPH # 1.1 10^3/uL (1.5-5.0); LYMPH % 17.3 % (24.0-44.0); MEAN CORPUSCULAR HEMOGLOBIN 30.1 pg (27.0-33.0); MEAN CORPUSCULAR HGB CONC 32.2 g/dl (32.0-36.5); MEAN CORPUSCULAR VOLUME 93.2 fl (80.0-96.0); MONO # 0.4 10^3/uL (0.0-0.8); MONO % 6.9 % (2.0-8.0); NEUTROPHILS # 4.6 10^3/uL (1.5-8.5); NEUTROPHILS % 73.2 % (36.0-66.0); PLATELET COUNT, AUTOMATED 189 10^3/uL (150-450); RED BLOOD COUNT 3.96 10^6/uL (4.00-5.40); WHITE BLOOD COUNT 6.3 10^3/uL (4.0-10.0)
[2022-03-13 13:11] LABS: PROTHROMBIN TIME 13.6 SECONDS (12.7-14.5)
[2022-03-13 13:12] LABS: PARTIAL THROMBOPLASTIN TIME 23.4 SECONDS (25.9-37.0)
[2022-03-13 13:25] LABS: FREE THYROXINE INDEX 4.5 % (1.3-4.8); MAGNESIUM LEVEL 1.6 MG/DL (1.8-2.4); THYROID STIMULATING HORMONE 2.02 uIU/ML (0.358-3.740); THYROXINE (T4) 11.5 UG/DL (4.5-12.0)
[2022-03-13 13:32] LABS: ALBUMIN 3.9 GM/DL (3.2-5.2); ALT/SGPT 24 U/L (12-78); BILIRUBIN,DIRECT 0.2 MG/DL (0.0-0.2); BILIRUBIN,TOTAL 0.7 MG/DL (0.2-1.0); BLOOD UREA NITROGEN 22 MG/DL (7-18); CALCIUM LEVEL 9.1 MG/DL (8.8-10.2); CARBON DIOXIDE LEVEL 26 MEQ/L (21-32); CHLORIDE LEVEL 108 MEQ/L (98-107); CREATININE FOR GFR 0.61 MG/DL (0.55-1.30); GLOMERULAR FILTRATION RATE > 60.0 (>45); GLUCOSE, FASTING 133 MG/DL (70-100); LIPASE 80 U/L (73-393); POTASSIUM SERUM 2.9 MEQ/L (3.5-5.1); SODIUM LEVEL 143 MEQ/L (136-145); TOTAL PROTEIN 7.4 GM/DL (6.4-8.2)
[2022-03-13] MEDS ORDERED: KCL 10MEQ/100ML SWI (KRUN) 10 MEQ in IV 1 EA IV ONE (13:35)
[2022-03-13] MEDS ORDERED: POTASSIUM CHLORIDE 10MEQ SR TABLET PO ONE ×2 (13:35→17:40)
[2022-03-13 13:55] LABS: ERYTHROCYTE SEDIMENTATION RATE 21 mm/hr (0-30)
[2022-03-13] MEDS ORDERED: MOM 30ML SUSPENSION UDC PO PRN (15:35)
[2022-03-13] MEDS ORDERED: NYSTATIN 100,000 UNITS/GM TOPICAL PWD 15 GM TOP PRN (15:35)
[2022-03-13] MEDS ORDERED: ACETAMINOPHEN TAB 650MG DOSE (2X325MG) PO PRN (15:35)
[2022-03-13] MEDS ORDERED: MAALOX 30 ML SUSP *UDC PO PRN (15:35)
[2022-03-13] MEDS ORDERED: HOME MED LIST COMPLETE! XX SCH (15:40)
[2022-03-13] MEDS ORDERED: GLUCOSE 4GM CHEW TABLET PO PRN (15:55)
[2022-03-13] MEDS ORDERED: DEXTROSE 50% 50 ML SYRINGE IV PRN (15:55)
[2022-03-13] MEDS ORDERED: GLUCAGON INJ 1MG VIAL SC PRN (15:55)
[2022-03-13 16:49] LABS: BLOOD UREA NITROGEN 18 MG/DL (7-18); CALCIUM LEVEL 8.5 MG/DL (8.8-10.2); CARBON DIOXIDE LEVEL 22 MEQ/L (21-32); CHLORIDE LEVEL 110 MEQ/L (98-107); CREATININE FOR GFR 0.48 MG/DL (0.55-1.30); GLOMERULAR FILTRATION RATE > 60.0 (>45); GLUCOSE, FASTING 108 MG/DL (70-100); POTASSIUM SERUM 3.4 MEQ/L (3.5-5.1); SODIUM LEVEL 141 MEQ/L (136-145)
[2022-03-13] MEDS: INSULIN LISPRO (NovoLOG) PER UNIT SC SCH ×2 (17:30→21:00)
[2022-03-13] MEDS: ENOXAPARIN 40MG/0.4ML SYRINGE (J1650 PER 10MG) SC SCH (18:04)
[2022-03-13] MEDS: MAG SULF 1GM/100ML (MAG RUN) 1 GM in IV 1 EA IV SCH ×2 (18:07→19:32)
[2022-03-13 20:06] VITALS: BP 141/86
[2022-03-13] MEDS: ARIPiprazole 10 MG TAB PO SCH (23:57)
[2022-03-13] MEDS: LORATADINE 10 MG TAB PO SCH (23:57)
[2022-03-13] MEDS: DOCUSATE SODIUM 100MG CAPSULE PO SCH (23:57)
[2022-03-13] MEDS: risperiDONE 2 MG TAB PO SCH (23:57)
[2022-03-13] MEDS: VITAMIN D 1,000 INTERNATIONAL UNITS TABLET PO SCH (23:58)
[2022-03-13] MEDS: CALCIUM/VITAMIN D 500 MG TAB PO SCH (23:58)
[2022-03-14 04:00] VITALS: BP 132/60
[2022-03-14] MEDS: LEVOTHYROXINE 50MCG TABLET (0.05MG) PO SCH (06:20)
[2022-03-14 06:35] LABS: BASO % 0.6 % (0.0-1.0); EOS # 0.2 10^3/uL (0.0-0.5); EOS % 2.9 % (0.0-3.0); HEMATOCRIT 35.9 % (36.0-47.0); HEMOGLOBIN 11.6 g/dl (12.0-15.5); LYMPH # 1.4 10^3/uL (1.5-5.0); LYMPH % 24.8 % (24.0-44.0); MEAN CORPUSCULAR HEMOGLOBIN 30.1 pg (27.0-33.0); MEAN CORPUSCULAR HGB CONC 32.3 g/dl (32.0-36.5); MEAN CORPUSCULAR VOLUME 93.2 fl (80.0-96.0); MONO # 0.5 10^3/uL (0.0-0.8); MONO % 8.6 % (2.0-8.0); NEUTROPHILS # 3.4 10^3/uL (1.5-8.5); NEUTROPHILS % 62.7 % (36.0-66.0); PLATELET COUNT, AUTOMATED 178 10^3/uL (150-450); RED BLOOD COUNT 3.85 10^6/uL (4.00-5.40); WHITE BLOOD COUNT 5.5 10^3/uL (4.0-10.0)
[2022-03-14 07:01] LABS: BLOOD UREA NITROGEN 11 MG/DL (7-18); CALCIUM LEVEL 8.4 MG/DL (8.8-10.2); CARBON DIOXIDE LEVEL 26 MEQ/L (21-32); CHLORIDE LEVEL 110 MEQ/L (98-107); CREATININE FOR GFR 0.42 MG/DL (0.55-1.30); GLOMERULAR FILTRATION RATE > 60.0 (>45); GLUCOSE, FASTING 135 MG/DL (70-100); MAGNESIUM LEVEL 1.9 MG/DL (1.8-2.4); SODIUM LEVEL 143 MEQ/L (136-145)
[2022-03-14] MEDS ORDERED: POTASSIUM CHLORIDE 10MEQ SR TABLET PO ONE ×2 (07:20→10:00)
[2022-03-14] MEDS: risperiDONE 2 MG TAB PO SCH ×2 (08:40→21:22)
[2022-03-14] MEDS: ENOXAPARIN 40MG/0.4ML SYRINGE (J1650 PER 10MG) SC SCH (08:40)
[2022-03-14] MEDS: CYANOCOBALAMIN 500 MCG TAB PO SCH (08:40)
[2022-03-14] MEDS: CALCIUM/VITAMIN D 500 MG TAB PO SCH ×2 (08:40→21:21)
[2022-03-14] MEDS: NIFEdipine 30 MG XL TAB PO SCH (08:42)
[2022-03-14] MEDS: INSULIN LISPRO (NovoLOG) PER UNIT SC SCH ×4 (08:43→20:30)
[2022-03-14] MEDS: DOCUSATE SODIUM 100MG CAPSULE PO SCH (08:43)
[2022-03-14 12:00] VITALS: BP 121/70
[2022-03-14] MEDS: MULTIVITAMINS/MINERALS THERAP 1 TAB PO SCH (14:11)
[2022-03-14 15:56] LABS: BLOOD UREA NITROGEN 10 MG/DL (7-18); CALCIUM LEVEL 9.5 MG/DL (8.8-10.2); CARBON DIOXIDE LEVEL 28 MEQ/L (21-32); CHLORIDE LEVEL 107 MEQ/L (98-107); GLOMERULAR FILTRATION RATE > 60.0 (>45); GLUCOSE, FASTING 196 MG/DL (70-100); POTASSIUM SERUM 3.8 MEQ/L (3.5-5.1); SODIUM LEVEL 140 MEQ/L (136-145)
[2022-03-14 20:00] VITALS: BP 124/89
[2022-03-14] MEDS: ARIPiprazole 10 MG TAB PO SCH (21:22)
[2022-03-14] MEDS: LORATADINE 10 MG TAB PO SCH (21:22)
[2022-03-14] MEDS: VITAMIN D 1,000 INTERNATIONAL UNITS TABLET PO SCH (21:22)
[2022-03-15 04:00] VITALS: BP 131/64
[2022-03-15] MEDS: LEVOTHYROXINE 50MCG TABLET (0.05MG) PO SCH (06:00)
[2022-03-15 07:58] LABS: BASO % 0.7 % (0.0-1.0); EOS # 0.1 10^3/uL (0.0-0.5); EOS % 2.6 % (0.0-3.0); HEMATOCRIT 39.4 % (36.0-47.0); HEMOGLOBIN 12.3 g/dl (12.0-15.5); LYMPH # 1.1 10^3/uL (1.5-5.0); LYMPH % 23.7 % (24.0-44.0); MEAN CORPUSCULAR HEMOGLOBIN 29.5 pg (27.0-33.0); MEAN CORPUSCULAR HGB CONC 31.2 g/dl (32.0-36.5); MEAN CORPUSCULAR VOLUME 94.5 fl (80.0-96.0); MONO # 0.4 10^3/uL (0.0-0.8); MONO % 9.1 % (2.0-8.0); NEUTROPHILS # 2.9 10^3/uL (1.5-8.5); NEUTROPHILS % 63.2 % (36.0-66.0); PLATELET COUNT, AUTOMATED 204 10^3/uL (150-450); RED BLOOD COUNT 4.17 10^6/uL (4.00-5.40); WHITE BLOOD COUNT 4.6 10^3/uL (4.0-10.0)
[2022-03-15 08:22] LABS: BLOOD UREA NITROGEN 10 MG/DL (7-18); CALCIUM LEVEL 9.1 MG/DL (8.8-10.2); CARBON DIOXIDE LEVEL 28 MEQ/L (21-32); CHLORIDE LEVEL 107 MEQ/L (98-107); CREATININE FOR GFR 0.61 MG/DL (0.55-1.30); GLOMERULAR FILTRATION RATE > 60.0 (>45); GLUCOSE, FASTING 195 MG/DL (70-100); MAGNESIUM LEVEL 1.9 MG/DL (1.8-2.4); POTASSIUM SERUM 4.1 MEQ/L (3.5-5.1); SODIUM LEVEL 141 MEQ/L (136-145)
[2022-03-15] MEDS: MULTIVITAMINS/MINERALS THERAP 1 TAB PO SCH (08:45)
[2022-03-15] MEDS: risperiDONE 2 MG TAB PO SCH (08:45)
[2022-03-15] MEDS: CYANOCOBALAMIN 500 MCG TAB PO SCH (08:45)
[2022-03-15] MEDS: CALCIUM/VITAMIN D 500 MG TAB PO SCH (08:45)
[2022-03-15 08:47] VITALS: BP 120/57
[2022-03-15] MEDS: ENOXAPARIN 40MG/0.4ML SYRINGE (J1650 PER 10MG) SC SCH (08:47)
[2022-03-15] MEDS: NIFEdipine 30 MG XL TAB PO SCH (08:47)
[2022-03-15] MEDS: INSULIN LISPRO (NovoLOG) PER UNIT SC SCH ×2 (08:47→12:54)
[2022-03-15] MEDS ORDERED: K-TA1TAB PO (10:53)
[2022-03-15] MEDS ORDERED: MAGN400T2 PO (10:53)
[2022-03-15 14:00] VITALS: BP 155/70
== END 2022-03-15 17:22 | disposition home health service (06) | DRG 641 ==
LOC: M ED 08:21 → M ED INP 15:31 → ENRESERV 16:03 → M 4MAIN 20:06
PROVIDERS: ADMIT Internal Medicine; ATTEND Internal Medicine
DX: E87.6 Hypokalemia (principal); E83.42 Hypomagnesemia; I10 Essential (primary) hypertension; E11.9 Type 2 diabetes mellitus without complications; E03.9 Hypothyroidism, unspecified; R21 Rash and other nonspecific skin eruption; F20.9 Schizophrenia, unspecified; D64.9 Anemia, unspecified; E55.9 Vitamin D deficiency, unspecified; Z79.890 Hormone replacement therapy; Z79.84 Long term (current) use of oral hypoglycemic drugs; Z79.899 Other long term (current) drug therapy; Z88.0 Allergy status to penicillin; Z88.8 Allergy status to other drugs, medicaments and biological substances

== ENCOUNTER 2022-03-16 22:59 | Inpatient (IN) | payer MEDICARE, MEDICAID ==
[~2022-03-16] VITALS: Ht 165.1 cm; Wt 85.0 kg
[~2022-03-16 22:59] MED LIST changes: +K-TA1TAB PO; +MAGN400T2 PO
[2022-03-17 00:15] LABS: CK-MB VALUE MASS 1.5 NG/ML (<3.6); MB/CK RELATIVE INDEX 1.19 (< OR =4)
[2022-03-17 00:20] LABS: BASO % 0.5 % (0.0-1.0); EOS # 0.1 10^3/uL (0.0-0.5); EOS % 1.3 % (0.0-3.0); HEMATOCRIT 35.3 % (36.0-47.0); HEMOGLOBIN 11.1 g/dl (12.0-15.5); LYMPH # 1.1 10^3/uL (1.5-5.0); LYMPH % 16.7 % (24.0-44.0); MEAN CORPUSCULAR HEMOGLOBIN 29.8 pg (27.0-33.0); MEAN CORPUSCULAR HGB CONC 31.4 g/dl (32.0-36.5); MEAN CORPUSCULAR VOLUME 94.6 fl (80.0-96.0); MONO # 0.5 10^3/uL (0.0-0.8); MONO % 7.4 % (2.0-8.0); NEUTROPHILS # 4.7 10^3/uL (1.5-8.5); PLATELET COUNT, AUTOMATED 211 10^3/uL (150-450); RED BLOOD COUNT 3.73 10^6/uL (4.00-5.40); WHITE BLOOD COUNT 6.4 10^3/uL (4.0-10.0)
[2022-03-17 00:22] LABS: ALBUMIN 3.4 GM/DL (3.2-5.2); ALT/SGPT 29 U/L (12-78); BILIRUBIN,DIRECT 0.2 MG/DL (0.0-0.2); BILIRUBIN,TOTAL 0.4 MG/DL (0.2-1.0); MAGNESIUM LEVEL 1.7 MG/DL (1.8-2.4); TOTAL PROTEIN 6.2 GM/DL (6.4-8.2)
[2022-03-17 00:52] LABS: BLOOD UREA NITROGEN 16 MG/DL (7-18); CALCIUM LEVEL 8.9 MG/DL (8.8-10.2); CARBON DIOXIDE LEVEL 28 MEQ/L (21-32); CHLORIDE LEVEL 108 MEQ/L (98-107); CREATININE FOR GFR 0.79 MG/DL (0.55-1.30); GLOMERULAR FILTRATION RATE > 60.0 (>45); GLUCOSE, FASTING 261 MG/DL (70-100); POTASSIUM SERUM 4.1 MEQ/L (3.5-5.1); SODIUM LEVEL 143 MEQ/L (136-145)
[2022-03-17 02:05] LABS: APPEARANCE, URINE HAZY (CLEAR); BACTERIA, URINE AUTO NEGATIVE (NEGATIVE); BILIRUBIN, URINE AUTO NEGATIVE (NEGATIVE); BLOOD, URINE BLOOD NEGATIVE (NEGATIVE); COLOR, URINE YELLOW (YELLOW); GLUCOSE, URINE (UA) AUTO 1+ mg/dL (NEGATIVE); KETONE, URINE AUTO TRACE mg/dL (NEGATIVE); LEUKOCYTE ESTERASE, URINE AUTO 2+ (NEGATIVE); MUCUS, URINE SMALL (NEGATIVE); NITRITE, URINE AUTO NEGATIVE (NEGATIVE); PROTEIN, URINE AUTO 1+ mg/dL (NEGATIVE); RBC, URINE AUTO 6 /HPF (0-3); SPECIFIC GRAVITY URINE AUTO 1.023 (1.002-1.035); SQUAMOUS EPITHELIAL CELL UR AU 2 /HPF (0-6); WBC, URINE AUTO 8 /HPF (0-3)
[2022-03-17] MEDS ORDERED: LR 1,000 ML IV ONE (03:10)
[2022-03-17] MEDS ORDERED: MAALOX 30 ML SUSP *UDC PO PRN (03:10)
[2022-03-17] MEDS ORDERED: MOM 30ML SUSPENSION UDC PO PRN (03:10)
[2022-03-17] MEDS ORDERED: GLUCOSE 4GM CHEW TABLET PO PRN (03:10)
[2022-03-17] MEDS ORDERED: DEXTROSE 50% 50 ML SYRINGE IV PRN (03:10)
[2022-03-17] MEDS ORDERED: MAG SULF 1GM/100ML (MAG RUN) 1 GM in IV 1 EA IV ONE (03:10)
[2022-03-17] MEDS ORDERED: GLUCAGON INJ 1MG VIAL SC PRN (03:10)
[2022-03-17] MEDS ORDERED: HOME MED LIST COMPLETE! XX SCH (03:15)
[2022-03-17] MEDS: LEVOTHYROXINE 50MCG TABLET (0.05MG) PO SCH (06:43)
[2022-03-17 08:19] LABS: BASO % 0.7 % (0.0-1.0); EOS # 0.1 10^3/uL (0.0-0.5); EOS % 1.8 % (0.0-3.0); HEMATOCRIT 35.9 % (36.0-47.0); HEMOGLOBIN 11.3 g/dl (12.0-15.5); LYMPH # 1.4 10^3/uL (1.5-5.0); LYMPH % 22.7 % (24.0-44.0); MEAN CORPUSCULAR HEMOGLOBIN 29.7 pg (27.0-33.0); MEAN CORPUSCULAR HGB CONC 31.5 g/dl (32.0-36.5); MEAN CORPUSCULAR VOLUME 94.5 fl (80.0-96.0); MONO # 0.6 10^3/uL (0.0-0.8); MONO % 9.3 % (2.0-8.0); NEUTROPHILS # 3.9 10^3/uL (1.5-8.5); NEUTROPHILS % 65.2 % (36.0-66.0); PLATELET COUNT, AUTOMATED 197 10^3/uL (150-450)
[2022-03-17] MEDS: risperiDONE 2 MG TAB PO SCH ×2 (08:21→21:43)
[2022-03-17] MEDS: MULTIVITAMINS/MINERALS THERAP 1 TAB PO SCH (08:21)
[2022-03-17] MEDS: ENOXAPARIN 40MG/0.4ML SYRINGE (J1650 PER 10MG) SC SCH (08:21)
[2022-03-17] MEDS: VITAMIN D 1,000 INTERNATIONAL UNITS TABLET PO SCH (08:21)
[2022-03-17] MEDS: NIFEdipine 30 MG XL TAB PO SCH (08:21)
[2022-03-17] MEDS: INSULIN LISPRO (NovoLOG) PER UNIT SC SCH ×4 (08:21→21:00)
[2022-03-17] MEDS: POTASSIUM CHLORIDE 10MEQ SR TABLET PO SCH (08:22)
[2022-03-17] MEDS: CYANOCOBALAMIN 500 MCG TAB PO SCH (08:22)
[2022-03-17 08:29] LABS: INR 0.98; PROTHROMBIN TIME 13.4 SECONDS (12.7-14.5)
[2022-03-17 08:30] LABS: PARTIAL THROMBOPLASTIN TIME 24.2 SECONDS (25.9-37.0)
[2022-03-17 08:47] LABS: BLOOD UREA NITROGEN 12 MG/DL (7-18); CALCIUM LEVEL 8.6 MG/DL (8.8-10.2); CARBON DIOXIDE LEVEL 28 MEQ/L (21-32); CHLORIDE LEVEL 107 MEQ/L (98-107); CREATININE FOR GFR 0.61 MG/DL (0.55-1.30); GLOMERULAR FILTRATION RATE > 60.0 (>45); GLUCOSE, FASTING 208 MG/DL (70-100); MAGNESIUM LEVEL 1.9 MG/DL (1.8-2.4); POTASSIUM SERUM 3.9 MEQ/L (3.5-5.1); SODIUM LEVEL 142 MEQ/L (136-145)
[2022-03-17 14:00] VITALS: BP 110/62
[2022-03-17] MEDS: ACETAMINOPHEN TAB 650MG DOSE (2X325MG) PO PRN (14:12)
[2022-03-17] MEDS: ARIPiprazole 10 MG TAB PO SCH (21:43)
[2022-03-17] MEDS: LORATADINE 10 MG TAB PO SCH (21:43)
[2022-03-17 22:00] VITALS: BP 110/61
[2022-03-18] MEDS: LEVOTHYROXINE 50MCG TABLET (0.05MG) PO SCH (05:51)
[2022-03-18 06:00] VITALS: BP 104/50
[2022-03-18 06:36] LABS: BASO % 0.6 % (0.0-1.0); EOS # 0.1 10^3/uL (0.0-0.5); EOS % 2.4 % (0.0-3.0); HEMOGLOBIN 12.2 g/dl (12.0-15.5); LYMPH # 1.3 10^3/uL (1.5-5.0); LYMPH % 26.8 % (24.0-44.0); MEAN CORPUSCULAR HEMOGLOBIN 29.3 pg (27.0-33.0); MEAN CORPUSCULAR HGB CONC 31.3 g/dl (32.0-36.5); MEAN CORPUSCULAR VOLUME 93.5 fl (80.0-96.0); MONO # 0.4 10^3/uL (0.0-0.8); MONO % 7.9 % (2.0-8.0); NEUTROPHILS % 61.9 % (36.0-66.0); PLATELET COUNT, AUTOMATED 192 10^3/uL (150-450); RED BLOOD COUNT 4.17 10^6/uL (4.00-5.40); WHITE BLOOD COUNT 4.9 10^3/uL (4.0-10.0)
[2022-03-18 07:04] LABS: BLOOD UREA NITROGEN 9 MG/DL (7-18); CALCIUM LEVEL 8.8 MG/DL (8.8-10.2); CARBON DIOXIDE LEVEL 26 MEQ/L (21-32); CHLORIDE LEVEL 107 MEQ/L (98-107); CREATININE FOR GFR 0.58 MG/DL (0.55-1.30); GLOMERULAR FILTRATION RATE > 60.0 (>45); GLUCOSE, FASTING 203 MG/DL (70-100); MAGNESIUM LEVEL 1.9 MG/DL (1.8-2.4); POTASSIUM SERUM 4.6 MEQ/L (3.5-5.1); SODIUM LEVEL 141 MEQ/L (136-145)
[2022-03-18] MEDS: INSULIN LISPRO (NovoLOG) PER UNIT SC SCH ×4 (07:47→21:00)
[2022-03-18] MEDS: POTASSIUM CHLORIDE 10MEQ SR TABLET PO SCH (07:47)
[2022-03-18] MEDS: MULTIVITAMINS/MINERALS THERAP 1 TAB PO SCH (07:48)
[2022-03-18] MEDS: CYANOCOBALAMIN 500 MCG TAB PO SCH (07:48)
[2022-03-18] MEDS: risperiDONE 2 MG TAB PO SCH ×2 (07:48→21:00)
[2022-03-18] MEDS: VITAMIN D 1,000 INTERNATIONAL UNITS TABLET PO SCH (07:48)
[2022-03-18] MEDS: ENOXAPARIN 40MG/0.4ML SYRINGE (J1650 PER 10MG) SC SCH (07:54)
[2022-03-18] MEDS: NIFEdipine 30 MG XL TAB PO SCH (08:09)
[2022-03-18] MEDS: ACETAMINOPHEN TAB 650MG DOSE (2X325MG) PO PRN ×2 (14:57→21:00)
[2022-03-18] MEDS: ARIPiprazole 10 MG TAB PO SCH (21:00)
[2022-03-18] MEDS: LORATADINE 10 MG TAB PO SCH (21:00)
[2022-03-18 22:00] VITALS: BP 117/61
[2022-03-19] MEDS: LEVOTHYROXINE 50MCG TABLET (0.05MG) PO SCH (05:47)
[2022-03-19 06:00] VITALS: BP 110/60
[2022-03-19 07:45] LABS: BASO % 0.6 % (0.0-1.0); EOS # 0.1 10^3/uL (0.0-0.5); EOS % 1.7 % (0.0-3.0); HEMATOCRIT 37.5 % (36.0-47.0); HEMOGLOBIN 11.8 g/dl (12.0-15.5); LYMPH # 1.5 10^3/uL (1.5-5.0); LYMPH % 23.4 % (24.0-44.0); MEAN CORPUSCULAR HEMOGLOBIN 29.7 pg (27.0-33.0); MEAN CORPUSCULAR HGB CONC 31.5 g/dl (32.0-36.5); MEAN CORPUSCULAR VOLUME 94.5 fl (80.0-96.0); MONO # 0.6 10^3/uL (0.0-0.8); MONO % 9.1 % (2.0-8.0); NEUTROPHILS # 4.3 10^3/uL (1.5-8.5); NEUTROPHILS % 64.9 % (36.0-66.0); PLATELET COUNT, AUTOMATED 182 10^3/uL (150-450); RED BLOOD COUNT 3.97 10^6/uL (4.00-5.40); WHITE BLOOD COUNT 6.6 10^3/uL (4.0-10.0)
[2022-03-19] MEDS: NIFEdipine 30 MG XL TAB PO SCH (07:54)
[2022-03-19] MEDS: ENOXAPARIN 40MG/0.4ML SYRINGE (J1650 PER 10MG) SC SCH (08:11)
[2022-03-19] MEDS: VITAMIN D 1,000 INTERNATIONAL UNITS TABLET PO SCH (08:12)
[2022-03-19] MEDS: MULTIVITAMINS/MINERALS THERAP 1 TAB PO SCH (08:12)
[2022-03-19] MEDS: INSULIN LISPRO (NovoLOG) PER UNIT SC SCH ×4 (08:12→21:00)
[2022-03-19] MEDS: CYANOCOBALAMIN 500 MCG TAB PO SCH (08:12)
[2022-03-19] MEDS: risperiDONE 2 MG TAB PO SCH ×2 (08:12→21:34)
[2022-03-19 08:19] LABS: BLOOD UREA NITROGEN 14 MG/DL (7-18); CARBON DIOXIDE LEVEL 23 MEQ/L (21-32); CHLORIDE LEVEL 107 MEQ/L (98-107); CREATININE FOR GFR 0.61 MG/DL (0.55-1.30); GLOMERULAR FILTRATION RATE > 60.0 (>45); GLUCOSE, FASTING 207 MG/DL (70-100); MAGNESIUM LEVEL 1.9 MG/DL (1.8-2.4); POTASSIUM SERUM 4.7 MEQ/L (3.5-5.1); SODIUM LEVEL 139 MEQ/L (136-145)
[2022-03-19] MEDS: POTASSIUM CHLORIDE 10MEQ SR TABLET PO SCH (08:22)
[2022-03-19] MEDS: NYSTATIN 100,000 UNITS/GM TOPICAL PWD 15 GM TOP SCH ×2 (09:00→21:35)
[2022-03-19] MEDS: ACETAMINOPHEN TAB 650MG DOSE (2X325MG) PO PRN ×2 (13:26→21:43)
[2022-03-19 18:53] LABS: BASO % 0.8 % (0.0-1.0); EOS # 0.1 10^3/uL (0.0-0.5); EOS % 2.3 % (0.0-3.0); HEMATOCRIT 38.4 % (36.0-47.0); LYMPH # 1.5 10^3/uL (1.5-5.0); LYMPH % 31.7 % (24.0-44.0); MEAN CORPUSCULAR HEMOGLOBIN 29.8 pg (27.0-33.0); MEAN CORPUSCULAR HGB CONC 31.3 g/dl (32.0-36.5); MEAN CORPUSCULAR VOLUME 95.3 fl (80.0-96.0); MONO # 0.4 10^3/uL (0.0-0.8); MONO % 7.3 % (2.0-8.0); NEUTROPHILS # 2.8 10^3/uL (1.5-8.5); NEUTROPHILS % 57.5 % (36.0-66.0); PLATELET COUNT, AUTOMATED 199 10^3/uL (150-450); RED BLOOD COUNT 4.03 10^6/uL (4.00-5.40); WHITE BLOOD COUNT 4.8 10^3/uL (4.0-10.0)
[2022-03-19 19:36] LABS: ERYTHROCYTE SEDIMENTATION RATE 27 mm/hr (0-30)
[2022-03-19 19:37] LABS: BLOOD UREA NITROGEN 13 MG/DL (7-18); CREATININE FOR GFR 0.82 MG/DL (0.55-1.30); GLOMERULAR FILTRATION RATE > 60.0 (>45); GLUCOSE, FASTING 304 MG/DL (70-100); SODIUM LEVEL 138 MEQ/L (136-145)
[2022-03-19 19:38] LABS: C REACTIVE PROTEIN QUANTITATIV 0.34 MG/DL (0.00-0.30); CALCIUM LEVEL 9.1 MG/DL (8.8-10.2); CARBON DIOXIDE LEVEL 27 mmol/L (20-29); CHLORIDE LEVEL 105 MEQ/L (98-107); POTASSIUM SERUM 4.5 MEQ/L (3.5-5.1)
[2022-03-19] MEDS: LORATADINE 10 MG TAB PO SCH (21:34)
[2022-03-19] MEDS: BACTRIM 160MG/800MG DS TAB PO SCH (21:34)
[2022-03-19] MEDS: ARIPiprazole 10 MG TAB PO SCH (21:34)
[2022-03-19] MEDS: MUPIROCIN 2% OINT 22 GM TUBE TOP SCH (21:35)
[2022-03-20] MEDS: LEVOTHYROXINE 50MCG TABLET (0.05MG) PO SCH (05:45)
[2022-03-20 06:00] VITALS: BP 103/56
[2022-03-20 06:39] LABS: BASO % 0.9 % (0.0-1.0); EOS # 0.1 10^3/uL (0.0-0.5); EOS % 3.2 % (0.0-3.0); HEMATOCRIT 36.2 % (36.0-47.0); HEMOGLOBIN 11.5 g/dl (12.0-15.5); LYMPH # 1.5 10^3/uL (1.5-5.0); LYMPH % 34.9 % (24.0-44.0); MEAN CORPUSCULAR HEMOGLOBIN 29.6 pg (27.0-33.0); MEAN CORPUSCULAR HGB CONC 31.8 g/dl (32.0-36.5); MEAN CORPUSCULAR VOLUME 93.1 fl (80.0-96.0); MONO # 0.4 10^3/uL (0.0-0.8); MONO % 8.7 % (2.0-8.0); NEUTROPHILS # 2.3 10^3/uL (1.5-8.5); NEUTROPHILS % 51.8 % (36.0-66.0); PLATELET COUNT, AUTOMATED 179 10^3/uL (150-450); RED BLOOD COUNT 3.89 10^6/uL (4.00-5.40); WHITE BLOOD COUNT 4.4 10^3/uL (4.0-10.0)
[2022-03-20 07:17] LABS: BLOOD UREA NITROGEN 13 MG/DL (7-18); CALCIUM LEVEL 9.2 MG/DL (8.8-10.2); CARBON DIOXIDE LEVEL 26 mmol/L (20-29); CHLORIDE LEVEL 107 MEQ/L (98-107); CREATININE FOR GFR 0.71 MG/DL (0.55-1.30); GLOMERULAR FILTRATION RATE > 60.0 (>45); GLUCOSE, FASTING 214 MG/DL (70-100); MAGNESIUM LEVEL 1.9 MG/DL (1.8-2.4); POTASSIUM SERUM 4.7 MEQ/L (3.5-5.1); SODIUM LEVEL 141 MEQ/L (136-145)
[2022-03-20] MEDS: NIFEdipine 30 MG XL TAB PO SCH (08:08)
[2022-03-20] MEDS: risperiDONE 2 MG TAB PO SCH ×2 (08:17→21:04)
[2022-03-20] MEDS: VITAMIN D 1,000 INTERNATIONAL UNITS TABLET PO SCH (08:17)
[2022-03-20] MEDS: ENOXAPARIN 40MG/0.4ML SYRINGE (J1650 PER 10MG) SC SCH (08:17)
[2022-03-20] MEDS: CYANOCOBALAMIN 500 MCG TAB PO SCH (08:17)
[2022-03-20] MEDS: INSULIN LISPRO (NovoLOG) PER UNIT SC SCH ×4 (08:17→20:44)
[2022-03-20] MEDS: MUPIROCIN 2% OINT 22 GM TUBE TOP SCH ×3 (08:18→21:05)
[2022-03-20] MEDS: POTASSIUM CHLORIDE 10MEQ SR TABLET PO SCH (08:18)
[2022-03-20] MEDS: NYSTATIN 100,000 UNITS/GM TOPICAL PWD 15 GM TOP SCH ×2 (08:18→21:05)
[2022-03-20] MEDS: BACTRIM 160MG/800MG DS TAB PO SCH ×2 (08:18→21:04)
[2022-03-20] MEDS: MULTIVITAMINS/MINERALS THERAP 1 TAB PO SCH (08:18)
[2022-03-20] MEDS: ARIPiprazole 10 MG TAB PO SCH (21:04)
[2022-03-20] MEDS: LORATADINE 10 MG TAB PO SCH (21:04)
[2022-03-21] MEDS: ACETAMINOPHEN TAB 650MG DOSE (2X325MG) PO PRN (00:48)
[2022-03-21 02:51] VITALS: BP 98/51
[2022-03-21] MEDS: LEVOTHYROXINE 50MCG TABLET (0.05MG) PO SCH (05:12)
[2022-03-21 06:27] LABS: BASO % 0.4 % (0.0-1.0); EOS # 0.1 10^3/uL (0.0-0.5); EOS % 2.6 % (0.0-3.0); HEMOGLOBIN 11.7 g/dl (12.0-15.5); LYMPH # 1.5 10^3/uL (1.5-5.0); LYMPH % 28.7 % (24.0-44.0); MEAN CORPUSCULAR HEMOGLOBIN 29.3 pg (27.0-33.0); MEAN CORPUSCULAR HGB CONC 31.6 g/dl (32.0-36.5); MEAN CORPUSCULAR VOLUME 92.5 fl (80.0-96.0); MONO # 0.4 10^3/uL (0.0-0.8); MONO % 7.3 % (2.0-8.0); NEUTROPHILS # 3.1 10^3/uL (1.5-8.5); NEUTROPHILS % 60.6 % (36.0-66.0); PLATELET COUNT, AUTOMATED 194 10^3/uL (150-450); WHITE BLOOD COUNT 5.1 10^3/uL (4.0-10.0)
[2022-03-21 06:41] LABS: BLOOD UREA NITROGEN 13 MG/DL (7-18); CARBON DIOXIDE LEVEL 27 MEQ/L (21-32); CHLORIDE LEVEL 103 MEQ/L (98-107); CREATININE FOR GFR 0.75 MG/DL (0.55-1.30); GLOMERULAR FILTRATION RATE > 60.0 (>45); GLUCOSE, FASTING 246 MG/DL (70-100); MAGNESIUM LEVEL 1.8 MG/DL (1.8-2.4); POTASSIUM SERUM 4.5 MEQ/L (3.5-5.1); SODIUM LEVEL 137 MEQ/L (136-145)
[2022-03-21 08:09] VITALS: BP 110/78
[2022-03-21] MEDS: POTASSIUM CHLORIDE 10MEQ SR TABLET PO SCH (08:09)
[2022-03-21] MEDS: NIFEdipine 30 MG XL TAB PO SCH (08:09)
[2022-03-21] MEDS: CYANOCOBALAMIN 500 MCG TAB PO SCH (08:11)
[2022-03-21] MEDS: ENOXAPARIN 40MG/0.4ML SYRINGE (J1650 PER 10MG) SC SCH (08:11)
[2022-03-21] MEDS: MULTIVITAMINS/MINERALS THERAP 1 TAB PO SCH (08:11)
[2022-03-21] MEDS: INSULIN LISPRO (NovoLOG) PER UNIT SC SCH ×2 (08:11→12:08)
[2022-03-21] MEDS: risperiDONE 2 MG TAB PO SCH (08:11)
[2022-03-21] MEDS: BACTRIM 160MG/800MG DS TAB PO SCH (08:11)
[2022-03-21] MEDS: VITAMIN D 1,000 INTERNATIONAL UNITS TABLET PO SCH (08:11)
[2022-03-21] MEDS: MUPIROCIN 2% OINT 22 GM TUBE TOP SCH (08:12)
[2022-03-21] MEDS: NYSTATIN 100,000 UNITS/GM TOPICAL PWD 15 GM TOP SCH (08:12)
[2022-03-21] MEDS ORDERED: NYST10006 TOP (11:44)
[2022-03-21] MEDS ORDERED: MUPI2OI TOP (11:44)
[2022-03-21] MEDS ORDERED: BACTDSTA PO (11:44)
== END 2022-03-21 13:40 | DRG 948 ==
LOC: M ED 22:59 → EDBD 22:59 → M ED INP 03-17 03:09 → M MS5PR 03-17 06:15
PROVIDERS: ADMIT Family Medicine; ATTEND General Practice
DX: R53.1 Weakness (principal); E87.2 Acidosis; L03.114 Cellulitis of left upper limb; I10 Essential (primary) hypertension; E11.42 Type 2 diabetes mellitus with diabetic polyneuropathy; E03.9 Hypothyroidism, unspecified; F20.9 Schizophrenia, unspecified; G25.0 Essential tremor; D64.9 Anemia, unspecified; E55.9 Vitamin D deficiency, unspecified; R26.89 Other abnormalities of gait and mobility; Z90.49 Acquired absence of other specified parts of digestive tract; Z20.822 Contact with and (suspected) exposure to COVID-19; Z79.84 Long term (current) use of oral hypoglycemic drugs; Z79.890 Hormone replacement therapy; Z88.0 Allergy status to penicillin; Z88.1 Allergy status to other antibiotic agents; Z88.8 Allergy status to other drugs, medicaments and biological substances

== ENCOUNTER → 2022-04-04 | Outpatient (CLI) | payer MEDICARE, MEDICAID ==
[~2022-04-04] MED LIST changes: +LEVO1TAB40 PO; -LEVO750T13 PO; +MUPI2OI TOP; +NYST10006 TOP
[2022-04-04 12:33] LABS: ALBUMIN 3.3 GM/DL (3.2-5.2); ALT/SGPT 22 U/L (12-78); BILIRUBIN,TOTAL 0.2 MG/DL (0.2-1.0); BLOOD UREA NITROGEN 15 MG/DL (7-18); CALCIUM LEVEL 9.4 MG/DL (8.8-10.2); CARBON DIOXIDE LEVEL 27 MEQ/L (21-32); CHLORIDE LEVEL 105 MEQ/L (98-107); CREATININE FOR GFR 0.72 MG/DL (0.55-1.30); GLOMERULAR FILTRATION RATE > 60.0 (>45); GLUCOSE, FASTING 148 MG/DL (70-100); MAGNESIUM LEVEL 1.5 MG/DL (1.8-2.4); POTASSIUM SERUM 3.3 MEQ/L (3.5-5.1); SODIUM LEVEL 140 MEQ/L (136-145); TOTAL PROTEIN 6.8 GM/DL (6.4-8.2)
== END ==
LOC: M PLALAB 08:33
PROVIDERS: ATTEND Physician Assistant
DX: E87.8 Other disorders of electrolyte and fluid balance, not elsewhere classified (principal)

== ENCOUNTER → 2022-04-11 | Outpatient (CLI) | payer MEDICARE, MEDICAID ==
[2022-04-11 11:41] LABS: BLOOD UREA NITROGEN 10 MG/DL (7-18); CALCIUM LEVEL 9.6 MG/DL (8.8-10.2); CARBON DIOXIDE LEVEL 29 MEQ/L (21-32); CHLORIDE LEVEL 105 MEQ/L (98-107); CREATININE FOR GFR 0.69 MG/DL (0.55-1.30); GLOMERULAR FILTRATION RATE > 60.0 (>45); GLUCOSE, FASTING 155 MG/DL (70-100); MAGNESIUM LEVEL 1.8 MG/DL (1.8-2.4); SODIUM LEVEL 140 MEQ/L (136-145)
== END ==
LOC: M PLALAB 08:16
PROVIDERS: ATTEND Physician Assistant
DX: E83.42 Hypomagnesemia (principal)

== ENCOUNTER → 2022-05-04 | Outpatient (CLI) | payer MEDICARE, MEDICAID | LOC: M WHC 12:59 | PROVIDERS: ATTEND Family Medicine | DX: Z12.31 Encounter for screening mammogram for malignant neoplasm of breast (principal); M81.0 Age-related osteoporosis without current pathological fracture ==

== ENCOUNTER → 2022-05-16 | Outpatient (CLI) | payer MEDICARE, MEDICAID ==
[2022-05-16 13:43] LABS: BLOOD UREA NITROGEN 11 MG/DL (7-18); CALCIUM LEVEL 9.7 MG/DL (8.8-10.2); CARBON DIOXIDE LEVEL 31 MEQ/L (21-32); CHLORIDE LEVEL 105 MEQ/L (98-107); CREATININE FOR GFR 0.62 MG/DL (0.55-1.30); GLOMERULAR FILTRATION RATE > 60.0 (>45); GLUCOSE, FASTING 147 MG/DL (70-100); MAGNESIUM LEVEL 2.1 MG/DL (1.8-2.4); POTASSIUM SERUM 4.1 MEQ/L (3.5-5.1); SODIUM LEVEL 140 MEQ/L (136-145)
== END ==
LOC: M PLALAB 08:29
PROVIDERS: ATTEND Physician Assistant
DX: E83.42 Hypomagnesemia (principal)

== ENCOUNTER → 2022-05-16 | Outpatient (CLI) | payer MEDICARE, MEDICAID ==
[2022-05-16 13:32] LABS: BASO % 0.7 % (0.0-1.0); EOS # 0.2 10^3/uL (0.0-0.5); EOS % 3.4 % (0.0-3.0); HEMATOCRIT 38.5 % (36.0-47.0); HEMOGLOBIN 12.2 g/dl (12.0-15.5); LYMPH # 1.3 10^3/uL (1.5-5.0); LYMPH % 22.7 % (24.0-44.0); MEAN CORPUSCULAR HEMOGLOBIN 30.2 pg (27.0-33.0); MEAN CORPUSCULAR HGB CONC 31.7 g/dl (32.0-36.5); MEAN CORPUSCULAR VOLUME 95.3 fl (80.0-96.0); MONO # 0.4 10^3/uL (0.0-0.8); MONO % 6.7 % (2.0-8.0); NEUTROPHILS # 3.9 10^3/uL (1.5-8.5); NEUTROPHILS % 66.3 % (36.0-66.0); PLATELET COUNT, AUTOMATED 202 10^3/uL (150-450); RED BLOOD COUNT 4.04 10^6/uL (4.00-5.40); WHITE BLOOD COUNT 5.8 10^3/uL (4.0-10.0)
[2022-05-16 13:49] LABS: ALBUMIN 4.1 GM/DL (3.2-5.2); ALT/SGPT 23 U/L (12-78); BILIRUBIN,TOTAL 0.4 MG/DL (0.2-1.0); BLOOD UREA NITROGEN 11 MG/DL (7-18); CALCIUM LEVEL 9.5 MG/DL (8.8-10.2); CARBON DIOXIDE LEVEL 31 MEQ/L (21-32); CHLORIDE LEVEL 104 MEQ/L (98-107); FERRITIN 9 NG/ML (8-252); GLOMERULAR FILTRATION RATE > 60.0 (>45); GLUCOSE, FASTING 143 MG/DL (70-100); NT-PRO BNP 55 PG/ML (<125); SODIUM LEVEL 139 MEQ/L (136-145); TOTAL PROTEIN 7.4 GM/DL (6.4-8.2)
[2022-05-16 14:24] LABS: CREATININE, URINE 15.4 MG/DL; MALB URINE SIEMENS < 5.0 MG/L; MAU/CREAT RATIO 32.4 MCG/MG (0.0-30.0)
[2022-05-16 15:23] LABS: HEMOGLOBIN A1c 6.6 %
== END ==
LOC: M PLALAB 08:27
PROVIDERS: ATTEND Family Medicine
DX: D50.9 Iron deficiency anemia, unspecified (principal)

== ENCOUNTER → 2022-07-11 | Outpatient (CLI) | payer MEDICARE, MEDICAID | LOC: M CARPUL 09:05 | PROVIDERS: ATTEND Family Medicine | DX: R60.9 Edema, unspecified (principal); I08.0 Rheumatic disorders of both mitral and aortic valves ==

== ENCOUNTER → 2022-07-23 | Outpatient (REF) | payer MEDICARE, MEDICAID ==
[2022-07-23 17:58] LABS: BASO % 0.5 % (0.0-1.0); EOS # 0.2 10^3/uL (0.0-0.5); EOS % 2.3 % (0.0-3.0); HEMATOCRIT 36.3 % (36.0-47.0); HEMOGLOBIN 11.2 g/dl (12.0-15.5); LYMPH # 1.5 10^3/uL (1.5-5.0); LYMPH % 22.6 % (24.0-44.0); MEAN CORPUSCULAR HEMOGLOBIN 28.8 pg (27.0-33.0); MEAN CORPUSCULAR HGB CONC 30.9 g/dl (32.0-36.5); MEAN CORPUSCULAR VOLUME 93.3 fl (80.0-96.0); MONO # 0.5 10^3/uL (0.0-0.8); MONO % 7.4 % (2.0-8.0); NEUTROPHILS # 4.4 10^3/uL (1.5-8.5); NEUTROPHILS % 66.7 % (36.0-66.0); PLATELET COUNT, AUTOMATED 199 10^3/uL (150-450); RED BLOOD COUNT 3.89 10^6/uL (4.00-5.40); WHITE BLOOD COUNT 6.6 10^3/uL (4.0-10.0)
[2022-07-23 18:30] LABS: CARBON DIOXIDE LEVEL 30 MMOL/L (20-31); CHLORIDE LEVEL 100 MMOL/L (98-107); SODIUM LEVEL 140 MMOL/L (136-145)
[2022-07-23 18:31] LABS: ALBUMIN 3.9 G/DL (3.2-5.2)
[2022-07-23 18:32] LABS: PTH INTACT 20.2 PG/ML (18.5-88.0)
[2022-07-23 18:35] LABS: BLOOD UREA NITROGEN 16 MG/DL (9-23); FREE T4 1.16 NG/DL (0.89-1.76); VITAMIN B12 LEVEL 944 PG/ML (211-911)
[2022-07-23 18:36] LABS: CALCIUM LEVEL 9.5 MG/DL (8.3-10.6); GLUCOSE, FASTING 155 MG/DL (74-106); THYROID STIMULATING HORMONE 3.078 uIU/ML (0.55-4.78)
[2022-07-23 18:37] LABS: FERRITIN 5.8 NG/ML (7.3-270.7); MAGNESIUM LEVEL 1.6 MG/DL (1.8-2.4)
[2022-07-23 18:38] LABS: ALT/SGPT 24 U/L (7.0-40); BILIRUBIN,TOTAL 0.3 MG/DL (0.3-1.2); CREATININE FOR GFR 0.51 MG/DL (0.55-1.30); GLOMERULAR FILTRATION RATE > 60.0 (>45); TOTAL PROTEIN 6.7 G/DL (5.7-8.2)
[2022-07-23 18:39] LABS: TOTAL 25(OH) VITAMIN D 54.7 NG/ML (20.0-100.0)
[2022-07-23 18:56] LABS: HEMOGLOBIN A1c 7.2 % (4.0-6.0)
== END ==
LOC: M SHH 17:18
PROVIDERS: ATTEND Family Medicine
DX: E11.8 Type 2 diabetes mellitus with unspecified complications (principal); E53.8 Deficiency of other specified B group vitamins; E03.9 Hypothyroidism, unspecified; E55.9 Vitamin D deficiency, unspecified; I10 Essential (primary) hypertension

== ENCOUNTER → 2022-08-14 | Outpatient (REF) | payer MEDICARE, MEDICAID ==
[2022-08-14 15:24] LABS: BASO % 0.4 % (0.0-1.0); EOS # 0.1 10^3/uL (0.0-0.5); EOS % 2.7 % (0.0-3.0); HEMATOCRIT 37.1 % (36.0-47.0); HEMOGLOBIN 11.9 g/dl (12.0-15.5); LYMPH # 1.2 10^3/uL (1.5-5.0); LYMPH % 25.8 % (24.0-44.0); MEAN CORPUSCULAR HEMOGLOBIN 29.4 pg (27.0-33.0); MEAN CORPUSCULAR HGB CONC 32.1 g/dl (32.0-36.5); MEAN CORPUSCULAR VOLUME 91.6 fl (80.0-96.0); MONO # 0.5 10^3/uL (0.0-0.8); MONO % 9.5 % (2.0-8.0); NEUTROPHILS # 2.9 10^3/uL (1.5-8.5); NEUTROPHILS % 61.2 % (36.0-66.0); PLATELET COUNT, AUTOMATED 132 10^3/uL (150-450); RED BLOOD COUNT 4.05 10^6/uL (4.00-5.40); WHITE BLOOD COUNT 4.8 10^3/uL (4.0-10.0)
== END ==
LOC: M SHH 14:48
PROVIDERS: ATTEND Family Medicine
DX: D50.9 Iron deficiency anemia, unspecified (principal)

== ENCOUNTER → 2022-08-22 | Outpatient (CLI) | payer MEDICARE, MEDICAID ==
[~2022-08-22] MED LIST changes: +ALBUTEROL SULFATE 2.5MG/0.5ML INH NEB SOLN INH PRN; +EPINEPHrine INJ 1 MG/ML 1ML AMP IM PRN; +IRON SUCROSE 500 MG in NS 250 ML OVER 4 HRS IV ONE; +NS 1,000 ML IV SCH; +diphenhydrAMINE 50MG/ML VIAL IV PRN; +methylPREDNISolone 125MG 2ML VIAL IV PRN
== END ==
LOC: M INFU 14:00
PROVIDERS: ATTEND Physician Assistant
DX: D50.9 Iron deficiency anemia, unspecified (principal); Z88.0 Allergy status to penicillin; Z88.8 Allergy status to other drugs, medicaments and biological substances; Z53.9 Procedure and treatment not carried out, unspecified reason

== ENCOUNTER 2022-09-17 09:58 | Inpatient (IN) | payer MEDICARE, MEDICAID ==
[~2022-09-17] VITALS: Ht 170.2 cm; Wt 85.9 kg
[~2022-09-17 09:58] MED LIST changes: -ALBUTEROL SULFATE 2.5MG/0.5ML INH NEB SOLN INH PRN; -EPINEPHrine INJ 1 MG/ML 1ML AMP IM PRN; -IRON SUCROSE 500 MG in NS 250 ML OVER 4 HRS IV ONE; -NS 1,000 ML IV SCH; -diphenhydrAMINE 50MG/ML VIAL IV PRN; -methylPREDNISolone 125MG 2ML VIAL IV PRN
[2022-09-17] MEDS ORDERED: TORS10TA3 PO (13:51)
[2022-09-17] MEDS ORDERED: FERR1TAB8 PO (13:51)
[2022-09-17] MEDS ORDERED: MAGN400T2 PO (13:51)
[2022-09-17] MEDS ORDERED: GNP99TAB3 PO (13:51)
[2022-09-17] MEDS ORDERED: NYST1POW9 TOP (13:51)
[2022-09-17] MEDS ORDERED: MUPI30CR TOP (13:51)
[2022-09-17] MEDS ORDERED: HOME MED LIST COMPLETE! XX SCH (13:55)
[2022-09-17] MEDS ORDERED: FUROSEMIDE 100MG/10ML VIAL IV ONE (14:10)
[2022-09-17] MEDS ORDERED: ceFAZolin SOD 2 GM in IV 1 EA IV ONE (14:10)
[2022-09-17] MEDS ORDERED: VANCOMYCIN HCL 1,750 MG in NS 250 ML IV ONE (14:15)
[2022-09-17 14:18] LABS: BASO % 0.3 % (0.0-1.0); EOS # 0.1 10^3/uL (0.0-0.5); EOS % 1.5 % (0.0-3.0); HEMATOCRIT 37.7 % (36.0-47.0); HEMOGLOBIN 11.7 g/dl (12.0-15.5); LYMPH # 1.4 10^3/uL (1.5-5.0); LYMPH % 20.8 % (24.0-44.0); MEAN CORPUSCULAR HEMOGLOBIN 28.6 pg (27.0-33.0); MEAN CORPUSCULAR VOLUME 92.2 fl (80.0-96.0); MONO # 0.6 10^3/uL (0.0-0.8); MONO % 8.4 % (2.0-8.0); NEUTROPHILS # 4.6 10^3/uL (1.5-8.5); NEUTROPHILS % 68.6 % (36.0-66.0); PLATELET COUNT, AUTOMATED 209 10^3/uL (150-450); RED BLOOD COUNT 4.09 10^6/uL (4.00-5.40); WHITE BLOOD COUNT 6.7 10^3/uL (4.0-10.0)
[2022-09-17 14:42] LABS: RSV AMPLIFICATION NEGATIVE (NEGATIVE)
[2022-09-17] MEDS ORDERED: VANCOMYCIN HCL 750 MG, VIAL MATE ADAPTER 1 EACH in D5W 250 ML IV ONE (15:00)
[2022-09-17] MEDS ORDERED: VANCOMYCIN HCL 1,000 MG, VIAL MATE ADAPTER 1 EACH in D5W 250 ML IV ONE (15:00)
[2022-09-17] MEDS ORDERED: DEXTROSE 50% 50ML SYRINGE IV PRN (17:15)
[2022-09-17] MEDS ORDERED: GLUCOSE 4GM CHEW TABLET PO PRN (17:15)
[2022-09-17] MEDS ORDERED: GLUCAGON INJ 1MG VIAL SC PRN (17:15)
[2022-09-17] MEDS ORDERED: VANCOMYCIN HCL 750 MG, VIAL MATE ADAPTER 1 EACH in NS 250 ML IV SCH (17:20)
[2022-09-17 17:28] LABS: APPEARANCE, URINE MANUAL CLEAR (CLEAR); COLOR, URINE MANUAL COLORLESS (YELLOW)
[2022-09-17 17:29] LABS: BILIRUBIN, URINE MANUAL NEGATIVE (NEGATIVE); BLOOD URINE MANUAL NEGATIVE (NEGATIVE); GLUCOSE, URINE (UA) MANUAL NEGATIVE (NEGATIVE); KETONE, URINE MANUAL NEGATIVE (NEGATIVE); NITRITE, URINE MANUAL NEGATIVE (NEGATIVE); PH,URINE MAN 7.5 UNITS (5.0 - 7.0); PROTEIN, URINE MANUAL NEGATIVE (NEGATIVE); SPECIFIC GRAVITY,URINE MANUAL 1.005 (1.002-1.035); UROBILINOGEN, URINE MANUAL NORMAL (NORMAL)
[2022-09-17 17:30] LABS: LEUKOCYTE ESTERASE, URINE MAN TRACE (NEGATIVE)
[2022-09-17 17:40] LABS: BACTERIA, URINE NONE SEEN; HYALINE CAST, URINE NONE SEEN /lpf (0-1); RBC, URINE 0-1 /hpf (0-3); SQUAMOUS EPITHELIAL CELL URINE SMALL AMOUNT /hpf (SMALL AMT)
[2022-09-17] MEDS: INSULIN LISPRO (NovoLOG) PER UNIT SC SCH (18:21)
[2022-09-17] MEDS ORDERED: FLUCONAZOLE 50MG TABLET PO ONE (18:30)
[2022-09-17] MEDS ORDERED: INSULIN LISPRO (NovoLOG) PER UNIT SC SCH (21:00)
[2022-09-17] MEDS ORDERED: VITAMIN D 1,000 INTERNATIONAL UNITS TABLET PO SCH (21:00)
[2022-09-17] MEDS: risperiDONE 2 MG TAB PO SCH (21:40)
[2022-09-17] MEDS: ACETAMINOPHEN TAB 650MG DOSE (2X325MG) PO PRN (23:56)
[2022-09-17] MEDS: VANCOMYCIN HCL 750 MG, VIAL MATE ADAPTER 1 EACH in D5W 250 ML IV SCH (23:56)
[2022-09-18] MEDS ORDERED: VANCOMYCIN HCL 500 MG in D5W MINI-BAG PLUS 100 ML IV SCH ×2
[2022-09-18] MEDS: LEVOTHYROXINE 50MCG TABLET (0.05MG) PO SCH ×2 (06:00→07:04)
[2022-09-18 06:44] LABS: BASO % 0.6 % (0.0-1.0); EOS # 0.2 10^3/uL (0.0-0.5); EOS % 2.8 % (0.0-3.0); HEMATOCRIT 35.4 % (36.0-47.0); HEMOGLOBIN 11.3 g/dl (12.0-15.5); LYMPH # 1.3 10^3/uL (1.5-5.0); LYMPH % 24.2 % (24.0-44.0); MEAN CORPUSCULAR HGB CONC 31.9 g/dl (32.0-36.5); MONO # 0.6 10^3/uL (0.0-0.8); MONO % 11.2 % (2.0-8.0); NEUTROPHILS # 3.3 10^3/uL (1.5-8.5); NEUTROPHILS % 60.8 % (36.0-66.0); PLATELET COUNT, AUTOMATED 192 10^3/uL (150-450); RED BLOOD COUNT 3.89 10^6/uL (4.00-5.40); WHITE BLOOD COUNT 5.4 10^3/uL (4.0-10.0)
[2022-09-18 06:54] LABS: MAGNESIUM LEVEL 1.7 MG/DL (1.8-2.4)
[2022-09-18 06:55] LABS: BLOOD UREA NITROGEN 11 MG/DL (9-23); CALCIUM LEVEL 8.7 MG/DL (8.3-10.6); CARBON DIOXIDE LEVEL 29 MMOL/L (20-31); CHLORIDE LEVEL 104 MMOL/L (98-107); CREATININE FOR GFR 0.58 MG/DL (0.55-1.30); GLOMERULAR FILTRATION RATE > 60.0 (>45); GLUCOSE, FASTING 137 MG/DL (74-106); POTASSIUM SERUM 3.5 MMOL/L (3.5-5.1); SODIUM LEVEL 142 MMOL/L (136-145)
[2022-09-18] MEDS: INSULIN LISPRO (NovoLOG) PER UNIT SC SCH ×2 (08:45→12:09)
[2022-09-18] MEDS: risperiDONE 2 MG TAB PO SCH (08:45)
[2022-09-18] MEDS: MAG SULF 1GM/100ML (MAG RUN) 1 GM in IV 1 EA IV SCH ×2 (08:46→11:15)
[2022-09-18] MEDS ORDERED: ENOXAPARIN 40MG/0.4ML SYRINGE (J1650 PER 10MG) SC SCH (09:00)
[2022-09-18] MEDS ORDERED: ARIPiprazole 10 MG TAB PO SCH (09:00)
[2022-09-18] MEDS ORDERED: CYANOCOBALAMIN 500 MCG TAB PO SCH (09:00)
[2022-09-18] MEDS ORDERED: NYSTATIN 100,000 UNITS/GM TOPICAL PWD 15GM TOP SCH (09:00)
[2022-09-18] MEDS ORDERED: FUROSEMIDE 20MG/2ML VIAL IV SCH (09:00)
[2022-09-18] MEDS ORDERED: BACT800T5 PO (11:54)
[2022-09-18] MEDS ORDERED: TORS10TA3 PO (11:54)
[2022-09-18] MEDS: ACETAMINOPHEN TAB 650MG DOSE (2X325MG) PO PRN (12:09)
[2022-09-18] MEDS: VANCOMYCIN HCL 750 MG, VIAL MATE ADAPTER 1 EACH in D5W 250 ML IV SCH (13:08)
[2022-09-18 13:09] VITALS: BP 109/56
[2022-09-19] MEDS ORDERED: FERROUS SULFATE 325MG TAB PO SCH (09:00)
== END 2022-09-18 13:09 | disposition home health service (06) | DRG 603 ==
LOC: M ED 09:58 → M ED INP 16:36
PROVIDERS: ADMIT Internal Medicine; ATTEND Internal Medicine
DX: L03.115 Cellulitis of right lower limb (principal); L03.116 Cellulitis of left lower limb; Z66 Do not resuscitate; I10 Essential (primary) hypertension; E11.628 Type 2 diabetes mellitus with other skin complications; E03.9 Hypothyroidism, unspecified; F20.9 Schizophrenia, unspecified; I87.8 Other specified disorders of veins; R25.1 Tremor, unspecified; D64.9 Anemia, unspecified; M54.9 Dorsalgia, unspecified; E55.9 Vitamin D deficiency, unspecified; Z90.49 Acquired absence of other specified parts of digestive tract; L30.4 Erythema intertrigo; Z20.822 Contact with and (suspected) exposure to COVID-19; Z79.890 Hormone replacement therapy; Z79.84 Long term (current) use of oral hypoglycemic drugs; Z79.899 Other long term (current) drug therapy; Z88.0 Allergy status to penicillin; Z88.8 Allergy status to other drugs, medicaments and biological substances

== ENCOUNTER → 2022-11-07 | Outpatient (REF) | payer MEDICARE, MEDICAID ==
[~2022-11-07] MED LIST changes: +BACT800T5 PO; +FERR1TAB8 PO; +GNP99TAB3 PO; +NYST1POW9 TOP; +TORS10TA3 PO
[2022-11-07 16:16] LABS: BASO % 0.6 % (0.0-1.0); EOS # 0.2 10^3/uL (0.0-0.5); EOS % 2.3 % (0.0-3.0); HEMATOCRIT 39.6 % (36.0-47.0); HEMOGLOBIN 12.5 g/dl (12.0-15.5); LYMPH # 2.2 10^3/uL (1.5-5.0); LYMPH % 30.4 % (24.0-44.0); MEAN CORPUSCULAR HEMOGLOBIN 29.3 pg (27.0-33.0); MEAN CORPUSCULAR HGB CONC 31.6 g/dl (32.0-36.5); MONO # 0.5 10^3/uL (0.0-0.8); MONO % 6.3 % (2.0-8.0); NEUTROPHILS # 4.3 10^3/uL (1.5-8.5); NEUTROPHILS % 60.1 % (36.0-66.0); PLATELET COUNT, AUTOMATED 191 10^3/uL (150-450); RED BLOOD COUNT 4.26 10^6/uL (4.00-5.40); WHITE BLOOD COUNT 7.1 10^3/uL (4.0-10.0)
[2022-11-07 16:45] LABS: FERRITIN 15.2 NG/ML (7.3-270.7); VITAMIN B12 LEVEL 1214 PG/ML (211-911)
[2022-11-07 16:48] LABS: ALKALINE PHOSPHATASE 79 U/L (46-116); ALT/SGPT 25 U/L (7.0-40); AST/SGOT 21 U/L (<34); BILIRUBIN,TOTAL 0.4 MG/DL (0.3-1.2); BLOOD UREA NITROGEN 14 MG/DL (9-23); CALCIUM LEVEL 9.2 MG/DL (8.3-10.6); CARBON DIOXIDE LEVEL 33 MMOL/L (20-31); CHLORIDE LEVEL 102 MMOL/L (98-107); CREATININE FOR GFR 0.53 MG/DL (0.55-1.30); GLOMERULAR FILTRATION RATE > 60.0 (>45); GLUCOSE, FASTING 107 MG/DL (74-106); MAGNESIUM LEVEL 1.7 MG/DL (1.8-2.4); SODIUM LEVEL 141 MMOL/L (136-145)
[2022-11-07 17:09] LABS: HEMOGLOBIN A1c 7.6 % (4.0-6.0)
== END ==
LOC: M SHH 15:58
PROVIDERS: ATTEND Family Medicine
DX: E11.8 Type 2 diabetes mellitus with unspecified complications (principal); I10 Essential (primary) hypertension; D50.9 Iron deficiency anemia, unspecified; E53.8 Deficiency of other specified B group vitamins

== ENCOUNTER 2023-01-06 16:25 | Inpatient (IN) | payer MEDICARE, MEDICAID ==
[~2023-01-06] VITALS: Ht 170.2 cm; Wt 78.1 kg
[2023-01-06] MEDS ORDERED: LIDOCAINE 2% 5ML JELLY UROJET TOP ONE (17:15)
[2023-01-06] MEDS ORDERED: NS 1,000 ML IV ONE (17:15)
[2023-01-06] MEDS ORDERED: ACETAMINOPHEN 325 MG TAB PO ONE (17:15)
[2023-01-06] MEDS ORDERED: cefTRIAXone SOD 2 GM in D5W MINI-BAG PLUS 50 ML IV ONE (17:25)
[2023-01-06] MEDS ORDERED: ACETAMINOPHEN 650MG SUPP PR ONE (17:40)
[2023-01-06] MEDS ORDERED: ACETAMINOPHEN 325MG SUPP PR ONE (17:40)
[2023-01-06 17:58] LABS: BASO % 0.6 % (0.0-1.0); EOS % 0.2 % (0.0-3.0); HEMATOCRIT 32.3 % (36.0-47.0); HEMOGLOBIN 10.3 g/dl (12.0-15.5); LYMPH # 0.6 10^3/uL (1.5-5.0); LYMPH % 11.1 % (24.0-44.0); MEAN CORPUSCULAR HEMOGLOBIN 29.3 pg (27.0-33.0); MEAN CORPUSCULAR HGB CONC 31.9 g/dl (32.0-36.5); MONO # 0.6 10^3/uL (0.0-0.8); MONO % 11.8 % (2.0-8.0); NEUTROPHILS # 4.1 10^3/uL (1.5-8.5); NEUTROPHILS % 76.1 % (36.0-66.0); PLATELET COUNT, AUTOMATED 166 10^3/uL (150-450); RED BLOOD COUNT 3.51 10^6/uL (4.00-5.40); WHITE BLOOD COUNT 5.3 10^3/uL (4.0-10.0)
[2023-01-06 18:12] LABS: ALBUMIN 3.7 G/DL (3.2-5.2); ALKALINE PHOSPHATASE 53 U/L (46-116); ALT/SGPT 21 U/L (7.0-40); AMYLASE 54 U/L (30-118); AST/SGOT 25 U/L (<34); BILIRUBIN,DIRECT 0.2 MG/DL (<0.4); BILIRUBIN,TOTAL 0.6 MG/DL (0.3-1.2); BLOOD UREA NITROGEN 14 MG/DL (9-23); CALCIUM LEVEL 8.9 MG/DL (8.3-10.6); CARBON DIOXIDE LEVEL 24 MMOL/L (20-31); CHLORIDE LEVEL 104 MMOL/L (98-107); CK-MB VALUE MASS < 1.0 NG/ML (<3.6); GLOMERULAR FILTRATION RATE > 60.0 (>45); GLUCOSE, FASTING 133 MG/DL (74-106); POTASSIUM SERUM 3.4 MMOL/L (3.5-5.1); SODIUM LEVEL 140 MMOL/L (136-145); TOTAL PROTEIN 6.1 G/DL (5.7-8.2)
[2023-01-06 18:13] LABS: CPK CREATINE PHOSPHOKINASE 119 U/L (34-145); MB/CK RELATIVE INDEX 0.84 (< OR =4)
[2023-01-06 18:14] LABS: FREE T4 1.12 NG/DL (0.89-1.76); THYROID STIMULATING HORMONE 1.603 uIU/ML (0.55-4.78)
[2023-01-06 18:19] LABS: INR 1.01; PROTHROMBIN TIME 13.5 SECONDS (12.5-14.5)
[2023-01-06 18:20] LABS: PARTIAL THROMBOPLASTIN TIME 26.7 SECONDS (24.8-34.2)
[2023-01-06] MEDS ORDERED: ISOVUE-370 76% 100ML VIAL As Ordered ONE (18:29)
[2023-01-06 18:33] LABS: RSV AMPLIFICATION NEGATIVE (NEGATIVE)
[2023-01-06 20:07] LABS: CK-MB VALUE MASS < 1.0 NG/ML (<3.6)
[2023-01-06 20:08] LABS: CPK CREATINE PHOSPHOKINASE 111 U/L (34-145)
[2023-01-06] MEDS ORDERED: DEXTROSE 50% 50ML SYRINGE IV PRN (20:15)
[2023-01-06] MEDS ORDERED: GLUCAGON INJ 1MG VIAL SC PRN (20:15)
[2023-01-06] MEDS ORDERED: GLUCOSE 4GM CHEW TABLET PO PRN (20:15)
[2023-01-06] MEDS ORDERED: COMBIVENT RESPIMAT 100-20MCG INHALER 4GM INH PRN (20:45)
[2023-01-06] MEDS ORDERED: NS 1,000 ML IV SCH (20:55)
[2023-01-06] MEDS ORDERED: POTASSIUM CHLORIDE 10MEQ SR TABLET PO ONE (20:55)
[2023-01-06] MEDS ORDERED: LIDOCAINE 5% (LIDODERM) PATCH TD SCH (21:00)
[2023-01-06] MEDS: INSULIN LISPRO (NovoLOG) PER UNIT SC SCH (21:00)
[2023-01-06] MEDS ORDERED: POTASSIUM CHLORIDE 10% LIQ 20MEQ/15ML UDC PO ONE (21:40)
[2023-01-06] MEDS ORDERED: KETOROLAC 30 MG/ML 1ML VIAL IV ONE (22:10)
[2023-01-06] MEDS: ENOXAPARIN 40MG/0.4ML SYRINGE (J1650 PER 10MG) SC SCH (22:12)
[2023-01-06] MEDS: guaiFENesin ER 600 MG TAB PO SCH (22:13)
[2023-01-06 23:30] VITALS: BP 131/78
[2023-01-06] MEDS: FLUTICASONE PROP 0.05% NASAL SPRAY 16 GM (FLONASE) NARES SCH (23:49)
[2023-01-06] MEDS: NIRMATRELVIR/RITONAVIR CO-PACK (EMERGENCY USE AUTH) PO SCH (23:51)
[2023-01-06] MEDS: NYSTATIN 100,000 UNITS/GM TOPICAL PWD 15GM TOP SCH (23:58)
[2023-01-07 01:08] VITALS: O2SAT 94
[2023-01-07 05:20] VITALS: BP 140/97
[2023-01-07] MEDS: LEVOTHYROXINE 50MCG TABLET (0.05MG) PO SCH (06:00)
[2023-01-07 06:40] LABS: HEMATOCRIT 31.5 % (36.0-47.0); MEAN CORPUSCULAR HEMOGLOBIN 29.8 pg (27.0-33.0); MEAN CORPUSCULAR HGB CONC 31.7 g/dl (32.0-36.5); MEAN CORPUSCULAR VOLUME 93.8 fl (80.0-96.0); PLATELET COUNT, AUTOMATED 143 10^3/uL (150-450); RED BLOOD COUNT 3.36 10^6/uL (4.00-5.40); WHITE BLOOD COUNT 4.2 10^3/uL (4.0-10.0)
[2023-01-07 07:24] LABS: ALBUMIN 3.3 G/DL (3.2-5.2); ALKALINE PHOSPHATASE 48 U/L (46-116); ALT/SGPT 17 U/L (7.0-40); AST/SGOT 23 U/L (<34); BILIRUBIN,TOTAL 0.5 MG/DL (0.3-1.2); BLOOD UREA NITROGEN 11 MG/DL (9-23); CALCIUM LEVEL 8.1 MG/DL (8.3-10.6); CARBON DIOXIDE LEVEL 24 MMOL/L (20-31); CHLORIDE LEVEL 107 MMOL/L (98-107); CREATININE FOR GFR 0.56 MG/DL (0.55-1.30); GLOMERULAR FILTRATION RATE > 60.0 (>45); GLUCOSE, FASTING 92 MG/DL (74-106); MAGNESIUM LEVEL 1.6 MG/DL (1.8-2.4); POTASSIUM SERUM 3.7 MMOL/L (3.5-5.1); SODIUM LEVEL 141 MMOL/L (136-145); TOTAL PROTEIN 5.5 G/DL (5.7-8.2)
[2023-01-07] MEDS: INSULIN LISPRO (NovoLOG) PER UNIT SC SCH ×4 (07:30→20:13)
[2023-01-07 09:00] VITALS: O2SAT 96
[2023-01-07] MEDS ORDERED: TORS10TA3 PO (09:36)
[2023-01-07] MEDS ORDERED: HOME MED LIST COMPLETE! XX SCH (09:40)
[2023-01-07] MEDS: guaiFENesin ER 600 MG TAB PO SCH ×2 (11:28→20:13)
[2023-01-07] MEDS: ENOXAPARIN 40MG/0.4ML SYRINGE (J1650 PER 10MG) SC SCH (11:28)
[2023-01-07] MEDS: NYSTATIN 100,000 UNITS/GM TOPICAL PWD 15GM TOP SCH ×2 (11:29→20:16)
[2023-01-07] MEDS: FLUTICASONE PROP 0.05% NASAL SPRAY 16 GM (FLONASE) NARES SCH ×2 (11:29→20:16)
[2023-01-07] MEDS: NIRMATRELVIR/RITONAVIR CO-PACK (EMERGENCY USE AUTH) PO SCH ×2 (11:31→20:15)
[2023-01-07] MEDS: risperiDONE 2 MG TAB PO SCH ×2 (13:54→20:13)
[2023-01-07] MEDS: ARIPiprazole 10 MG TAB PO SCH (13:54)
[2023-01-07] MEDS: FERROUS SULFATE 325MG TAB PO SCH (13:54)
[2023-01-07] MEDS: CYANOCOBALAMIN 500 MCG TAB PO SCH (13:55)
[2023-01-07 14:00] VITALS: BP 109/64
[2023-01-07 18:00] VITALS: O2SAT 95
[2023-01-07] MEDS: VITAMIN D 1,000 INTERNATIONAL UNITS TABLET PO SCH (20:13)
[2023-01-07] MEDS: MAGNESIUM OXIDE 400MG TAB (MAG-OX) PO SCH (20:14)
[2023-01-07] MEDS: LIDOCAINE 5% (LIDODERM) PATCH TD SCH (20:17)
[2023-01-07 22:00] VITALS: BP 155/71
[2023-01-08 03:53] VITALS: O2SAT 94
[2023-01-08] MEDS: LEVOTHYROXINE 50MCG TABLET (0.05MG) PO SCH (05:30)
[2023-01-08 06:00] VITALS: BP 142/58
[2023-01-08 06:07] VITALS: O2SAT 97
[2023-01-08 06:24] LABS: BASO % 0.5 % (0.0-1.0); EOS # 0.1 10^3/uL (0.0-0.5); EOS % 1.4 % (0.0-3.0); HEMATOCRIT 34.9 % (36.0-47.0); HEMOGLOBIN 11.1 g/dl (12.0-15.5); LYMPH # 1.2 10^3/uL (1.5-5.0); LYMPH % 25.9 % (24.0-44.0); MEAN CORPUSCULAR HEMOGLOBIN 29.2 pg (27.0-33.0); MEAN CORPUSCULAR HGB CONC 31.8 g/dl (32.0-36.5); MEAN CORPUSCULAR VOLUME 91.8 fl (80.0-96.0); MONO # 0.5 10^3/uL (0.0-0.8); MONO % 11.9 % (2.0-8.0); NEUTROPHILS # 2.7 10^3/uL (1.5-8.5); NEUTROPHILS % 60.1 % (36.0-66.0); PLATELET COUNT, AUTOMATED 148 10^3/uL (150-450); WHITE BLOOD COUNT 4.4 10^3/uL (4.0-10.0)
[2023-01-08 06:51] LABS: BLOOD UREA NITROGEN 7 MG/DL (9-23); CALCIUM LEVEL 8.1 MG/DL (8.3-10.6); CARBON DIOXIDE LEVEL 24 MMOL/L (20-31); CHLORIDE LEVEL 107 MMOL/L (98-107); CREATININE FOR GFR 0.53 MG/DL (0.55-1.30); GLOMERULAR FILTRATION RATE > 60.0 (>45); GLUCOSE, FASTING 101 MG/DL (74-106); MAGNESIUM LEVEL 1.8 MG/DL (1.8-2.4); POTASSIUM SERUM 3.8 MMOL/L (3.5-5.1); SODIUM LEVEL 141 MMOL/L (136-145)
[2023-01-08] MEDS: INSULIN LISPRO (NovoLOG) PER UNIT SC SCH ×4 (07:30→16:42)
[2023-01-08] MEDS: FLUTICASONE PROP 0.05% NASAL SPRAY 16 GM (FLONASE) NARES SCH ×2 (09:25→22:35)
[2023-01-08] MEDS: ARIPiprazole 10 MG TAB PO SCH (09:26)
[2023-01-08] MEDS: risperiDONE 2 MG TAB PO SCH ×2 (09:26→22:34)
[2023-01-08] MEDS: guaiFENesin ER 600 MG TAB PO SCH ×2 (09:26→22:33)
[2023-01-08] MEDS: ENOXAPARIN 40MG/0.4ML SYRINGE (J1650 PER 10MG) SC SCH (09:26)
[2023-01-08] MEDS: MAGNESIUM OXIDE 400MG TAB (MAG-OX) PO SCH ×2 (09:26→22:33)
[2023-01-08] MEDS: CYANOCOBALAMIN 500 MCG TAB PO SCH (09:26)
[2023-01-08] MEDS: POTASSIUM CHLORIDE 10MEQ SR TABLET PO SCH (09:26)
[2023-01-08] MEDS: TORSEMIDE 10 MG TABLET PO SCH (09:27)
[2023-01-08] MEDS: NIRMATRELVIR/RITONAVIR CO-PACK (EMERGENCY USE AUTH) PO SCH ×2 (09:28→22:35)
[2023-01-08] MEDS: NYSTATIN 100,000 UNITS/GM TOPICAL PWD 15GM TOP SCH ×2 (09:28→22:35)
[2023-01-08] MEDS: LIDOCAINE 5% (LIDODERM) PATCH TD SCH (10:24)
[2023-01-08 14:00] VITALS: BP 137/56
[2023-01-08] MEDS: VITAMIN D 1,000 INTERNATIONAL UNITS TABLET PO SCH (22:34)
[2023-01-09] MEDS: LEVOTHYROXINE 50MCG TABLET (0.05MG) PO SCH (05:44)
[2023-01-09 06:00] VITALS: BP 156/82
[2023-01-09] MEDS: ARIPiprazole 10 MG TAB PO SCH (09:59)
[2023-01-09] MEDS: CYANOCOBALAMIN 500 MCG TAB PO SCH (09:59)
[2023-01-09] MEDS: risperiDONE 2 MG TAB PO SCH ×2 (09:59→22:19)
[2023-01-09] MEDS: NIRMATRELVIR/RITONAVIR CO-PACK (EMERGENCY USE AUTH) PO SCH ×2 (09:59→22:21)
[2023-01-09] MEDS: FERROUS SULFATE 325MG TAB PO SCH (10:00)
[2023-01-09] MEDS: POTASSIUM CHLORIDE 10MEQ SR TABLET PO SCH (10:00)
[2023-01-09] MEDS: guaiFENesin ER 600 MG TAB PO SCH (10:00)
[2023-01-09] MEDS: TORSEMIDE 10 MG TABLET PO SCH (10:00)
[2023-01-09] MEDS: MAGNESIUM OXIDE 400MG TAB (MAG-OX) PO SCH ×2 (10:01→22:19)
[2023-01-09] MEDS: ENOXAPARIN 40MG/0.4ML SYRINGE (J1650 PER 10MG) SC SCH (10:01)
[2023-01-09] MEDS: INSULIN LISPRO (NovoLOG) PER UNIT SC SCH ×4 (10:01→22:22)
[2023-01-09] MEDS: NYSTATIN 100,000 UNITS/GM TOPICAL PWD 15GM TOP SCH ×2 (10:02→22:24)
[2023-01-09] MEDS: FLUTICASONE PROP 0.05% NASAL SPRAY 16 GM (FLONASE) NARES SCH ×2 (10:02→22:22)
[2023-01-09] MEDS: VITAMIN D 1,000 INTERNATIONAL UNITS TABLET PO SCH (22:19)
[2023-01-09] MEDS: ACETAMINOPHEN TAB 650MG DOSE (2X325MG) PO PRN (22:20)
[2023-01-09] MEDS: LIDOCAINE 5% (LIDODERM) PATCH TD SCH (22:22)
[2023-01-10 03:46] VITALS: O2SAT 95
[2023-01-10] MEDS: LEVOTHYROXINE 50MCG TABLET (0.05MG) PO SCH (05:42)
[2023-01-10 06:00] VITALS: BP 136/61
[2023-01-10] MEDS: INSULIN LISPRO (NovoLOG) PER UNIT SC SCH ×4 (07:30→20:38)
[2023-01-10] MEDS: TORSEMIDE 10 MG TABLET PO SCH (08:44)
[2023-01-10] MEDS: MAGNESIUM OXIDE 400MG TAB (MAG-OX) PO SCH ×2 (08:45→21:44)
[2023-01-10] MEDS: risperiDONE 2 MG TAB PO SCH ×2 (08:45→21:44)
[2023-01-10] MEDS: CYANOCOBALAMIN 500 MCG TAB PO SCH (08:45)
[2023-01-10] MEDS: ARIPiprazole 10 MG TAB PO SCH (08:45)
[2023-01-10] MEDS: NIRMATRELVIR/RITONAVIR CO-PACK (EMERGENCY USE AUTH) PO SCH ×2 (08:46→21:43)
[2023-01-10] MEDS: POTASSIUM CHLORIDE 10MEQ SR TABLET PO SCH (08:46)
[2023-01-10] MEDS: FLUTICASONE PROP 0.05% NASAL SPRAY 16 GM (FLONASE) NARES SCH ×2 (08:47→21:45)
[2023-01-10] MEDS: NYSTATIN 100,000 UNITS/GM TOPICAL PWD 15GM TOP SCH ×2 (08:47→21:45)
[2023-01-10] MEDS: ENOXAPARIN 40MG/0.4ML SYRINGE (J1650 PER 10MG) SC SCH (08:48)
[2023-01-10] MEDS: LIDOCAINE 5% (LIDODERM) PATCH TD SCH (20:38)
[2023-01-10] MEDS: ACETAMINOPHEN TAB 650MG DOSE (2X325MG) PO PRN (21:44)
[2023-01-10] MEDS: VITAMIN D 1,000 INTERNATIONAL UNITS TABLET PO SCH (21:44)
[2023-01-11] MEDS: LEVOTHYROXINE 50MCG TABLET (0.05MG) PO SCH (05:41)
[2023-01-11 06:00] VITALS: BP 124/57
[2023-01-11] MEDS: POTASSIUM CHLORIDE 10MEQ SR TABLET PO SCH (08:13)
[2023-01-11] MEDS: risperiDONE 2 MG TAB PO SCH (08:13)
[2023-01-11] MEDS: CYANOCOBALAMIN 500 MCG TAB PO SCH (08:13)
[2023-01-11] MEDS: FERROUS SULFATE 325MG TAB PO SCH (08:13)
[2023-01-11] MEDS: ARIPiprazole 10 MG TAB PO SCH (08:13)
[2023-01-11] MEDS: MAGNESIUM OXIDE 400MG TAB (MAG-OX) PO SCH (08:13)
[2023-01-11] MEDS: TORSEMIDE 10 MG TABLET PO SCH (08:13)
[2023-01-11] MEDS: INSULIN LISPRO (NovoLOG) PER UNIT SC SCH ×2 (08:14→12:47)
[2023-01-11] MEDS: NYSTATIN 100,000 UNITS/GM TOPICAL PWD 15GM TOP SCH (08:14)
[2023-01-11] MEDS: FLUTICASONE PROP 0.05% NASAL SPRAY 16 GM (FLONASE) NARES SCH (08:14)
[2023-01-11] MEDS: ENOXAPARIN 40MG/0.4ML SYRINGE (J1650 PER 10MG) SC SCH (08:15)
[2023-01-11] MEDS: NIRMATRELVIR/RITONAVIR CO-PACK (EMERGENCY USE AUTH) PO SCH (09:11)
== END 2023-01-11 15:05 | disposition home health service (06) | DRG 177 ==
LOC: M ED 16:25 → EDBD 16:25 → M ED INP 20:12 → M MSPAV 23:11
PROVIDERS: ADMIT Internal Medicine; ATTEND Internal Medicine
DX: U07.1 COVID-19 (principal); J12.82 Pneumonia due to coronavirus disease 2019; I10 Essential (primary) hypertension; F20.9 Schizophrenia, unspecified; E03.9 Hypothyroidism, unspecified; M19.90 Unspecified osteoarthritis, unspecified site; E11.319 Type 2 diabetes mellitus with unspecified diabetic retinopathy without macular edema; Z66 Do not resuscitate; K21.9 Gastro-esophageal reflux disease without esophagitis; H26.9 Unspecified cataract; E87.6 Hypokalemia; R53.1 Weakness; R60.0 Localized edema; L30.4 Erythema intertrigo; D50.9 Iron deficiency anemia, unspecified; G24.01 Drug induced subacute dyskinesia; E55.9 Vitamin D deficiency, unspecified; E53.8 Deficiency of other specified B group vitamins; Z79.890 Hormone replacement therapy; Z86.14 Personal history of Methicillin resistant Staphylococcus aureus infection; Z79.899 Other long term (current) drug therapy; Z88.0 Allergy status to penicillin; Z88.8 Allergy status to other drugs, medicaments and biological substances

== ENCOUNTER 2023-03-10 13:22 | Emergency (ER) | payer MEDICARE, MEDICAID ==
[~2023-03-10] VITALS: Ht 165.1 cm; Wt 76.1 kg
[2023-03-10 13:37] VITALS: TEMP 97.8
[2023-03-10] MEDS ORDERED: POTA1TAB21 PO (13:41)
[2023-03-10] MEDS ORDERED: ONETTES13 (13:47)
[2023-03-10] MEDS ORDERED: LANC-66 (13:47)
[2023-03-10] MEDS ORDERED: CALC1TAB63 PO (13:47)
[2023-03-10 14:16] LABS: BASO # 0.1 10^3/uL (0.0-0.2); BASO % 0.7 % (0.0-1.0); EOS # 0.1 10^3/uL (0.0-0.5); EOS % 1.2 % (0.0-3.0); HEMATOCRIT 38.1 % (36.0-47.0); HEMOGLOBIN 11.9 g/dl (12.0-15.5); LYMPH # 1.3 10^3/uL (1.5-5.0); LYMPH % 19.7 % (24.0-44.0); MEAN CORPUSCULAR HEMOGLOBIN 29.5 pg (27.0-33.0); MEAN CORPUSCULAR HGB CONC 31.2 g/dl (32.0-36.5); MEAN CORPUSCULAR VOLUME 94.5 fl (80.0-96.0); MONO # 0.4 10^3/uL (0.0-0.8); MONO % 6.5 % (2.0-8.0); NEUTROPHILS # 4.9 10^3/uL (1.5-8.5); NEUTROPHILS % 71.6 % (36.0-66.0); PLATELET COUNT, AUTOMATED 212 10^3/uL (150-450); RED BLOOD COUNT 4.03 10^6/uL (4.00-5.40); WHITE BLOOD COUNT 6.8 10^3/uL (4.0-10.0)
[2023-03-10 14:39] LABS: ALBUMIN 4.1 G/DL (3.2-5.2); ALKALINE PHOSPHATASE 60 U/L (46-116); ALT/SGPT 17 U/L (7.0-40); AST/SGOT 10 U/L (<34); BILIRUBIN,DIRECT 0.2 MG/DL (<0.4); BILIRUBIN,TOTAL 0.6 MG/DL (0.3-1.2); BLOOD UREA NITROGEN 18 MG/DL (9-23); CALCIUM LEVEL 9.6 MG/DL (8.3-10.6); CARBON DIOXIDE LEVEL 23 MMOL/L (20-31); CHLORIDE LEVEL 104 MMOL/L (98-107); CREATININE FOR GFR 0.62 MG/DL (0.55-1.30); GLOMERULAR FILTRATION RATE > 60.0 (>45); GLUCOSE, FASTING 107 MG/DL (74-106); MAGNESIUM LEVEL 1.8 MG/DL (1.8-2.4); POTASSIUM SERUM 3.7 MMOL/L (3.5-5.1); SODIUM LEVEL 142 MMOL/L (136-145); TOTAL PROTEIN 7.1 G/DL (5.7-8.2)
[2023-03-10 14:41] LABS: THYROID STIMULATING HORMONE 2.313 uIU/ML (0.55-4.78)
[2023-03-10 14:42] LABS: FREE T4 1.41 NG/DL (0.89-1.76)
[2023-03-10] MEDS ORDERED: NS 1,000 ML IV ONE (14:50)
[2023-03-10] MEDS ORDERED: med rec comment (17:42)
[2023-03-10] MEDS ORDERED: HOME MED LIST COMPLETE! XX SCH (17:45)
[2023-03-10 18:15] VITALS: BP 132/58
[2023-03-10 18:16] VITALS: O2SAT 99
[2023-03-10] MEDS ORDERED: NIRMATRELVIR/RITONAVIR CO-PACK (EMERGENCY USE AUTH) PO SCH ×2 (21:00)
== END 2023-03-10 18:30 | disposition home or self-care (01) ==
LOC: EDBD 13:22 → M ED 13:22
DX: U07.1 COVID-19 (principal); E11.9 Type 2 diabetes mellitus without complications; I10 Essential (primary) hypertension; E66.9 Obesity, unspecified; Z86.14 Personal history of Methicillin resistant Staphylococcus aureus infection; F20.9 Schizophrenia, unspecified; Z88.8 Allergy status to other drugs, medicaments and biological substances; Z88.0 Allergy status to penicillin; Z79.899 Other long term (current) drug therapy; Z79.84 Long term (current) use of oral hypoglycemic drugs

== ENCOUNTER → 2023-04-04 | Outpatient (REF) | payer MEDICARE, MEDICAID ==
[~2023-04-04] MED LIST changes: +CALC1TAB63 PO; +LANC-66; +ONETTES13; +POTA1TAB21 PO; +med rec comment
== END ==
LOC: M SFHCPLAZ 11:31
PROVIDERS: ATTEND Family Medicine
DX: I10 Essential (primary) hypertension (principal); D50.9 Iron deficiency anemia, unspecified; E11.8 Type 2 diabetes mellitus with unspecified complications; E55.9 Vitamin D deficiency, unspecified; E53.8 Deficiency of other specified B group vitamins; E78.5 Hyperlipidemia, unspecified

== ENCOUNTER → 2023-04-08 | Outpatient (REF) | payer MEDICARE, MEDICAID ==
[2023-04-08 09:33] LABS: BASO % 0.7 % (0.0-1.0); EOS # 0.1 10^3/uL (0.0-0.5); EOS % 2.3 % (0.0-3.0); HEMATOCRIT 36.3 % (36.0-47.0); HEMOGLOBIN 11.6 g/dl (12.0-15.5); LYMPH # 1.6 10^3/uL (1.5-5.0); LYMPH % 28.5 % (24.0-44.0); MEAN CORPUSCULAR HEMOGLOBIN 29.5 pg (27.0-33.0); MEAN CORPUSCULAR VOLUME 92.4 fl (80.0-96.0); MONO # 0.4 10^3/uL (0.0-0.8); MONO % 7.2 % (2.0-8.0); NEUTROPHILS # 3.5 10^3/uL (1.5-8.5); NEUTROPHILS % 61.1 % (36.0-66.0); PLATELET COUNT, AUTOMATED 197 10^3/uL (150-450); RED BLOOD COUNT 3.93 10^6/uL (4.00-5.40); WHITE BLOOD COUNT 5.7 10^3/uL (4.0-10.0)
[2023-04-08 09:56] LABS: HEMOGLOBIN A1c 6.8 % (4.0-6.0)
[2023-04-08 10:06] LABS: ALBUMIN 4.3 G/DL (3.2-5.2); ALKALINE PHOSPHATASE 58 U/L (46-116); ALT/SGPT 19 U/L (7.0-40); AST/SGOT 14 U/L (<34); BILIRUBIN,TOTAL 0.5 MG/DL (0.3-1.2); BLOOD UREA NITROGEN 11 MG/DL (9-23); CALCIUM LEVEL 9.7 MG/DL (8.3-10.6); CARBON DIOXIDE LEVEL 29 MMOL/L (20-31); CHLORIDE LEVEL 101 MMOL/L (98-107); CHOLESTEROL LEVEL 154 MG/DL (<200); CHOLESTEROL RISK RATIO 1.82 (<5); CREATININE FOR GFR 0.54 MG/DL (0.55-1.30); GLOMERULAR FILTRATION RATE > 60.0 (>45); GLUCOSE, FASTING 112 MG/DL (74-106); HDL CHOLESTEROL 84.4 MG/DL (>40); LDL CHOLESTEROL 52.8 MG/DL (<100); NON-HDL-C 69.6 MG/DL; SODIUM LEVEL 140 MMOL/L (136-145); TOTAL PROTEIN 7.3 G/DL (5.7-8.2); TRIGLYCERIDES LEVEL 84 MG/DL (<150)
[2023-04-08 10:07] LABS: PTH INTACT 21.8 PG/ML (18.5-88.0); TOTAL 25(OH) VITAMIN D 87.2 NG/ML (20.0-100.0); VITAMIN B12 LEVEL 764 PG/ML (211-911)
[2023-04-08 10:08] LABS: FERRITIN 15.4 NG/ML (7.3-270.7); FREE T4 1.33 NG/DL (0.89-1.76)
[2023-04-08 10:09] LABS: THYROID STIMULATING HORMONE 2.783 uIU/ML (0.55-4.78)
== END ==
LOC: M SHH 09:11
PROVIDERS: ATTEND Family Medicine
DX: E78.5 Hyperlipidemia, unspecified (principal); E53.8 Deficiency of other specified B group vitamins; I10 Essential (primary) hypertension; E11.8 Type 2 diabetes mellitus with unspecified complications; D50.9 Iron deficiency anemia, unspecified; E55.9 Vitamin D deficiency, unspecified

== ENCOUNTER → 2023-05-06 | Outpatient (CLI) | payer MEDICARE, MEDICAID | LOC: M WHC 09:46 | PROVIDERS: ATTEND Family Medicine | DX: Z12.31 Encounter for screening mammogram for malignant neoplasm of breast (principal) ==

== ENCOUNTER → 2023-07-01 | Outpatient (REF) | payer MEDICARE, MEDICAID | LOC: M SFHCPLAZ 11:24 | PROVIDERS: ATTEND Family Medicine | DX: D50.9 Iron deficiency anemia, unspecified (principal); E11.8 Type 2 diabetes mellitus with unspecified complications ==

== ENCOUNTER → 2023-11-28 | Outpatient (CLI) | payer MEDICARE, MEDICAID ==
[~2023-11-28] MED LIST changes: -ASPI-161 PO; +ASPI-615 PO; +RISP-106 PO; -RISP-9 PO
== END ==
LOC: M WHC 10:52
PROVIDERS: ATTEND Family Medicine
DX: Z12.31 Encounter for screening mammogram for malignant neoplasm of breast (principal)

== ENCOUNTER 2024-04-25 11:55 | Observation (INO) | payer MEDICARE, MEDICAID ==
[~2024-04-25] VITALS: Ht 154.9 cm; Wt 70.9 kg
[2024-04-25 12:46] LABS: BASO % 0.7 % (0.0-1.0); EOS # 0.1 10^3/uL (0.0-0.5); HEMATOCRIT 37.6 % (36.0-47.0); HEMOGLOBIN 12.1 g/dl (12.0-15.5); LYMPH % 21.5 % (24.0-44.0); MEAN CORPUSCULAR HEMOGLOBIN 30.8 pg (27.0-33.0); MEAN CORPUSCULAR HGB CONC 32.2 g/dl (32.0-36.5); MEAN CORPUSCULAR VOLUME 95.7 fl (80.0-96.0); MONO # 0.2 10^3/uL (0.0-0.8); MONO % 5.4 % (2.0-8.0); NEUTROPHILS # 3.1 10^3/uL (1.5-8.5); NEUTROPHILS % 70.2 % (36.0-66.0); PLATELET COUNT, AUTOMATED 164 10^3/uL (150-450); RED BLOOD COUNT 3.93 10^6/uL (4.00-5.40); WHITE BLOOD COUNT 4.5 10^3/uL (4.0-10.0)
[2024-04-25 13:14] LABS: ALBUMIN 4.3 G/DL (3.2-5.2); ALKALINE PHOSPHATASE 64 U/L (46-116); ALT/SGPT 15 U/L (7.0-40); AST/SGOT 19 U/L (<34); BILIRUBIN,DIRECT 0.3 MG/DL (<0.4); BILIRUBIN,TOTAL 0.9 MG/DL (0.3-1.2); BLOOD UREA NITROGEN 19 MG/DL (9-23); CALCIUM LEVEL 9.3 MG/DL (8.3-10.6); CARBON DIOXIDE LEVEL 25 MMOL/L (20-31); CHLORIDE LEVEL 103 MMOL/L (98-107); GLOMERULAR FILTRATION RATE > 60.0 (>45); GLUCOSE, FASTING 127 MG/DL (74-106); MAGNESIUM LEVEL 1.7 MG/DL (1.8-2.4); SODIUM LEVEL 140 MMOL/L (136-145); TOTAL PROTEIN 6.9 G/DL (5.7-8.2)
[2024-04-25 13:15] LABS: THYROXINE (T4) 10.5 UG/DL (4.5-10.9)
[2024-04-25 13:16] LABS: THYROID STIMULATING HORMONE 2.355 uIU/ML (0.55-4.78)
[2024-04-25] MEDS ORDERED: GLUCOSE 4 GM CHEW PO PRN (14:45)
[2024-04-25] MEDS ORDERED: DEXTROSE 50% 50ML SYRINGE IV PRN (14:45)
[2024-04-25] MEDS ORDERED: GLUCAGON INJ 1MG VIAL SC PRN (14:45)
[2024-04-25] MEDS ORDERED: NYST-13 TOP (15:58)
[2024-04-25] MEDS ORDERED: VITA400C83 PO (15:58)
[2024-04-25] MEDS ORDERED: THERTAB52 PO (15:59)
[2024-04-25] MEDS ORDERED: HOME MED LIST COMPLETE! XX SCH (16:05)
[2024-04-25] MEDS: MAG SULF 1GM/100ML (MAG RUN) 1 GM in IV 1 EA IV ONE (16:15)
[2024-04-25] MEDS: INSULIN LISPRO (NovoLOG) PER UNIT SC SCH ×2 (18:41→21:00)
[2024-04-26] MEDS: LEVOTHYROXINE 50MCG TABLET (0.05MG) PO SCH (06:28)
[2024-04-26] MEDS: SITagliptin 50 MG TAB (JANUVIA) PO SCH (09:17)
[2024-04-26] MEDS: risperiDONE 2 MG TAB PO SCH (09:18)
[2024-04-26] MEDS: FERROUS SULFATE 325MG TAB PO SCH (09:18)
[2024-04-26] MEDS: CYANOCOBALAMIN 500 MCG TAB PO SCH (09:18)
[2024-04-26] MEDS: ENOXAPARIN 40MG/0.4ML SYRINGE (J1650 PER 10MG) SC SCH (09:18)
[2024-04-26] MEDS: TORSEMIDE 10 MG TABLET PO SCH (09:18)
[2024-04-26] MEDS: ARIPiprazole 10 MG TAB PO SCH (09:18)
[2024-04-26] MEDS: POTASSIUM CHLORIDE 10MEQ SR TABLET PO SCH (09:19)
[2024-04-26] MEDS: VITAMIN E 400 INTERNATIONAL UNITS CAP PO SCH (13:18)
[2024-04-26] MEDS ORDERED: MAGNESIUM OXIDE 400MG TAB (MAG-OX) PO SCH (21:00)
[2024-04-26] MEDS: MAGNESIUM OXIDE 400MG TAB (MAG-OX) PO SCH (21:34)
[2024-04-27 11:34] LABS: BLOOD UREA NITROGEN 11 MG/DL (9-23); CALCIUM LEVEL 9.2 MG/DL (8.3-10.6); CARBON DIOXIDE LEVEL 30 MMOL/L (20-31); CHLORIDE LEVEL 102 MMOL/L (98-107); CREATININE FOR GFR 0.58 MG/DL (0.55-1.30); GLOMERULAR FILTRATION RATE > 60.0 (>45); GLUCOSE, FASTING 161 MG/DL (74-106); POTASSIUM SERUM 3.7 MMOL/L (3.5-5.1); SODIUM LEVEL 139 MMOL/L (136-145)
[2024-04-27] MEDS: ACETAMINOPHEN TAB 650MG DOSE (2X325MG) PO PRN (22:39)
[2024-04-28 17:40] LABS: HEMATOCRIT 43.8 % (36.0-47.0); HEMOGLOBIN 13.9 g/dl (12.0-15.5); MEAN CORPUSCULAR HEMOGLOBIN 30.1 pg (27.0-33.0); MEAN CORPUSCULAR HGB CONC 31.7 g/dl (32.0-36.5); MEAN CORPUSCULAR VOLUME 94.8 fl (80.0-96.0); PLATELET COUNT, AUTOMATED 184 10^3/uL (150-450); RED BLOOD COUNT 4.62 10^6/uL (4.00-5.40)
[2024-04-28 18:00] VITALS: TEMP 97.5; O2SAT 99
[2024-04-28 18:00] LABS: C REACTIVE PROTEIN QUANTITATIV < 0.40 MG/DL (<1.0)
[2024-04-28 18:02] LABS: BLOOD UREA NITROGEN 14 MG/DL (9-23); CALCIUM LEVEL 9.3 MG/DL (8.3-10.6); CARBON DIOXIDE LEVEL 31 MMOL/L (20-31); CHLORIDE LEVEL 102 MMOL/L (98-107); CREATININE FOR GFR 0.61 MG/DL (0.55-1.30); GLOMERULAR FILTRATION RATE > 60.0 (>45); GLUCOSE, FASTING 178 MG/DL (74-106); POTASSIUM SERUM 4.3 MMOL/L (3.5-5.1); SODIUM LEVEL 139 MMOL/L (136-145)
[2024-04-28 18:05] LABS: ERYTHROCYTE SEDIMENTATION RATE 25 mm/hr (0-30)
[2024-04-28 20:39] VITALS: BP 100/52; TEMP 97; O2SAT 99
[2024-04-29 04:08] VITALS: BP 112/73; TEMP 97.5; O2SAT 93
[2024-04-29 10:40] LABS: PROCALCITONIN 0.04 ng/ml
[2024-04-29 12:00] VITALS: BP 101/57; TEMP 97.6; O2SAT 96
[2024-04-29 19:44] VITALS: BP 92/44; TEMP 97.3; O2SAT 95
[2024-04-29 19:55] VITALS: BP 102/70
[2024-04-30 04:14] VITALS: BP 104/61; TEMP 97.5; O2SAT 97
[2024-04-30] MEDS ORDERED: FOSF3PAC2 PO (11:19)
[2024-04-30] MEDS ORDERED: FOSFOMYCIN TROMETHAMINE 3 GM POWDER PACKET (MONUROL) PO ONE (12:00)
== END 2024-04-30 11:15 ==
LOC: M ED 11:55 → INTOOBSV 04-28 16:50 → M ED INP 04-28 16:50 → EEVIPCON 04-28 16:50 → M MS5PR 04-28 18:10
PROVIDERS: ADMIT General Practice; ATTEND General Practice
DX: R53.1 Weakness (principal); R26.81 Unsteadiness on feet; E87.8 Other disorders of electrolyte and fluid balance, not elsewhere classified; E83.42 Hypomagnesemia; Z86.14 Personal history of Methicillin resistant Staphylococcus aureus infection; I10 Essential (primary) hypertension; M16.0 Bilateral primary osteoarthritis of hip; R82.71 Bacteriuria; E11.319 Type 2 diabetes mellitus with unspecified diabetic retinopathy without macular edema; E03.9 Hypothyroidism, unspecified; F20.9 Schizophrenia, unspecified; F32.A Depression, unspecified; F41.9 Anxiety disorder, unspecified; Z87.81 Personal history of (healed) traumatic fracture; M54.9 Dorsalgia, unspecified; M25.551 Pain in right hip; M25.552 Pain in left hip; R56.9 Unspecified convulsions; T43.4X5A Adverse effect of butyrophenone and thiothixene neuroleptics, initial encounter; T43.3X5A Adverse effect of phenothiazine antipsychotics and neuroleptics, initial encounter; Z90.89 Acquired absence of other organs; Z88.0 Allergy status to penicillin; Z88.8 Allergy status to other drugs, medicaments and biological substances; Z79.899 Other long term (current) drug therapy; Z79.890 Hormone replacement therapy; Z79.84 Long term (current) use of oral hypoglycemic drugs; Z74.1 Need for assistance with personal care
CPT/HCPCS: 36415; 71045; 73521; 80048; 80076; 81001; 83605; 83735; 83880; 84145; 84436; 84443; 85025; 85027; 85652; 86140; 87040; 87077; 87186; 87426; 87486; 87581; 87633; 87798; 93005; 93041; 94760; 96365; 96372; 97110; 97116; 97161; 97530; 99285; G0378; J1650; J1815; J3475

== ENCOUNTER → 2024-05-14 | Outpatient (REF) | payer MEDICARE, MEDICAID ==
[~2024-05-14] MED LIST changes: +FOSF3PAC2 PO; +MACR100C43 PO; +NYST-13 TOP; +THERTAB52 PO; +VITA400C83 PO
[2024-05-14 10:07] LABS: HEMATOCRIT 37.7 % (36.0-47.0); MEAN CORPUSCULAR HEMOGLOBIN 30.2 pg (27.0-33.0); MEAN CORPUSCULAR HGB CONC 31.8 g/dl (32.0-36.5); PLATELET COUNT, AUTOMATED 229 10^3/uL (150-450); RED BLOOD COUNT 3.97 10^6/uL (4.00-5.40); WHITE BLOOD COUNT 6.4 10^3/uL (4.0-10.0)
[2024-05-14 10:18] LABS: HEMOGLOBIN A1c 5.8 % (4.0-6.0)
[2024-05-14 10:37] LABS: THYROID STIMULATING HORMONE 3.424 uIU/ML (0.55-4.78)
[2024-05-14 10:38] LABS: ALBUMIN 3.5 G/DL (3.2-5.2); ALKALINE PHOSPHATASE 76 U/L (46-116); ALT/SGPT 10 U/L (7.0-40); AST/SGOT 13 U/L (<34); BILIRUBIN,TOTAL 0.3 MG/DL (0.3-1.2); BLOOD UREA NITROGEN 11 MG/DL (9-23); CALCIUM LEVEL 9.5 MG/DL (8.3-10.6); CARBON DIOXIDE LEVEL 28 MMOL/L (20-31); CHLORIDE LEVEL 104 MMOL/L (98-107); CREATININE FOR GFR 0.49 MG/DL (0.55-1.30); GLOMERULAR FILTRATION RATE > 60.0 (>45); GLUCOSE, FASTING 113 MG/DL (74-106); MAGNESIUM LEVEL 1.7 MG/DL (1.8-2.4); POTASSIUM SERUM 4.1 MMOL/L (3.5-5.1); SODIUM LEVEL 137 MMOL/L (136-145); TOTAL PROTEIN 6.4 G/DL (5.7-8.2)
== END ==
LOC: SKLAB4 07:00
PROVIDERS: ATTEND Internal Medicine
DX: E11.9 Type 2 diabetes mellitus without complications (principal); E03.9 Hypothyroidism, unspecified; I10 Essential (primary) hypertension

== ENCOUNTER 2024-05-16 12:27 | Emergency (ER) | payer MEDICARE, MEDICAID ==
[~2024-05-16 12:27] MED LIST changes: -MACR100C43 PO
[2024-05-16 13:01] VITALS: TEMP 100.2
[2024-05-16 13:23] LABS: BASO % 0.2 % (0.0-1.0); EOS % 0.1 % (0.0-3.0); HEMATOCRIT 35.6 % (36.0-47.0); HEMOGLOBIN 11.4 g/dl (12.0-15.5); LYMPH # 0.8 10^3/uL (1.5-5.0); LYMPH % 8.5 % (24.0-44.0); MEAN CORPUSCULAR HEMOGLOBIN 30.8 pg (27.0-33.0); MEAN CORPUSCULAR VOLUME 96.2 fl (80.0-96.0); MONO # 0.6 10^3/uL (0.0-0.8); NEUTROPHILS # 7.7 10^3/uL (1.5-8.5); NEUTROPHILS % 84.9 % (36.0-66.0); PLATELET COUNT, AUTOMATED 248 10^3/uL (150-450); WHITE BLOOD COUNT 9.1 10^3/uL (4.0-10.0)
[2024-05-16 13:32] LABS: BLOOD UREA NITROGEN 23 MG/DL (9-23); CARBON DIOXIDE LEVEL 29 MMOL/L (20-31); CHLORIDE LEVEL 109 MMOL/L (98-107); GLOMERULAR FILTRATION RATE > 60.0 (>45); GLUCOSE, FASTING 140 MG/DL (74-106); POTASSIUM SERUM 3.8 MMOL/L (3.5-5.1); SODIUM LEVEL 142 MMOL/L (136-145)
[2024-05-16 15:25] VITALS: BP 113/55; O2SAT 99
== END 2024-05-16 15:36 | disposition home or self-care (01) ==
LOC: M ED 12:27 → EDBD 12:27 → M ED 15:36
DX: R41.0 Disorientation, unspecified (principal); W07.XXXA Fall from chair, initial encounter; E11.9 Type 2 diabetes mellitus without complications; I10 Essential (primary) hypertension; E78.5 Hyperlipidemia, unspecified; F20.9 Schizophrenia, unspecified; Z88.0 Allergy status to penicillin; Z88.8 Allergy status to other drugs, medicaments and biological substances; Z79.84 Long term (current) use of oral hypoglycemic drugs; Z79.899 Other long term (current) drug therapy

== ENCOUNTER 2024-05-16 23:02 | Observation (INO) | payer MEDICARE, MEDICAID ==
[~2024-05-16] VITALS: Ht 160 cm; Wt 73.5 kg
[~2024-05-16 23:02] MED LIST changes: +E-401CAP2 PO; -VITA400C83 PO
[2024-05-17] MEDS: ACETAMINOPHEN TAB 650MG DOSE (2X325MG) PO ONE (02:53)
[2024-05-17 04:10] LABS: BASO % 0.5 % (0.0-1.0); EOS # 0.1 10^3/uL (0.0-0.5); EOS % 1.5 % (0.0-3.0); HEMATOCRIT 30.6 % (36.0-47.0); LYMPH # 1.7 10^3/uL (1.5-5.0); LYMPH % 27.7 % (24.0-44.0); MEAN CORPUSCULAR HEMOGLOBIN 30.9 pg (27.0-33.0); MEAN CORPUSCULAR HGB CONC 32.7 g/dl (32.0-36.5); MEAN CORPUSCULAR VOLUME 94.4 fl (80.0-96.0); MONO # 0.5 10^3/uL (0.0-0.8); MONO % 8.1 % (2.0-8.0); NEUTROPHILS # 3.8 10^3/uL (1.5-8.5); PLATELET COUNT, AUTOMATED 217 10^3/uL (150-450); RED BLOOD COUNT 3.24 10^6/uL (4.00-5.40); WHITE BLOOD COUNT 6.2 10^3/uL (4.0-10.0)
[2024-05-17 04:26] LABS: THYROID STIMULATING HORMONE 2.723 uIU/ML (0.55-4.78)
[2024-05-17 04:31] LABS: ALKALINE PHOSPHATASE 58 U/L (46-116); ALT/SGPT 12 U/L (7.0-40); AST/SGOT 13 U/L (<34); BILIRUBIN,TOTAL 0.5 MG/DL (0.3-1.2); BLOOD UREA NITROGEN 19 MG/DL (9-23); CALCIUM LEVEL 9.1 MG/DL (8.3-10.6); CARBON DIOXIDE LEVEL 28 MMOL/L (20-31); CHLORIDE LEVEL 108 MMOL/L (98-107); CREATININE FOR GFR 0.56 MG/DL (0.55-1.30); GLOMERULAR FILTRATION RATE > 60.0 (>45); GLUCOSE, FASTING 96 MG/DL (74-106); MAGNESIUM LEVEL 1.6 MG/DL (1.8-2.4); POTASSIUM SERUM 3.4 MMOL/L (3.5-5.1); SODIUM LEVEL 140 MMOL/L (136-145); TOTAL PROTEIN 5.7 G/DL (5.7-8.2)
[2024-05-17] MEDS ORDERED: DEXTROSE 50% 50ML SYRINGE IV PRN (05:30)
[2024-05-17] MEDS ORDERED: GLUCAGON INJ 1MG VIAL SC PRN (05:30)
[2024-05-17] MEDS ORDERED: GLUCOSE 4 GM CHEW PO PRN (05:30)
[2024-05-17] MEDS: MAG SULF 1GM/100ML (MAG RUN) 1 GM in IV 1 EA IV ONE (06:50)
[2024-05-17] MEDS: NS 1,000 ML IV ONE ×3 (06:50→15:27)
[2024-05-17] MEDS: LEVOTHYROXINE 50MCG TABLET (0.05MG) PO SCH (06:50)
[2024-05-17] MEDS: NS 1,000 ML IV SCH (07:45)
[2024-05-17] MEDS ORDERED: HEPARIN SOD (PORCINE) 5000UNITS/ML 1ML VIAL/SYRINGE SQ SCH (09:00)
[2024-05-17] MEDS ORDERED: HOME MED LIST COMPLETE! XX SCH (10:20)
[2024-05-17] MEDS: INSULIN LISPRO (NovoLOG) PER UNIT SC SCH ×2 (11:39→20:19)
[2024-05-17] MEDS: MAG SULF 1GM/100ML (MAG RUN) 1 GM in IV 1 EA IV SCH (11:49)
[2024-05-17] MEDS: POTASSIUM CHLORIDE 10MEQ SR TABLET PO ONE (11:50)
[2024-05-17] MEDS: ENOXAPARIN 40MG/0.4ML SYRINGE (J1650 PER 10MG) SC SCH (11:50)
[2024-05-17] MEDS: MAGNESIUM OXIDE 400MG TAB (MAG-OX) PO SCH (11:50)
[2024-05-17] MEDS: ACETAMINOPHEN TAB 650MG DOSE (2X325MG) PO PRN (15:02)
[2024-05-17 15:31] VITALS: BP 110/60; TEMP 97.4; O2SAT 100
[2024-05-17] MEDS: CYANOCOBALAMIN 500 MCG TAB PO SCH (16:11)
[2024-05-17] MEDS: TORSEMIDE 10 MG TABLET PO SCH (16:11)
[2024-05-17] MEDS: ARIPiprazole 10 MG TAB PO SCH (16:11)
[2024-05-17 17:09] LABS: INR 1.2; PARTIAL THROMBOPLASTIN TIME 30.4 SECONDS (24.8-34.2); PROTHROMBIN TIME 14.8 SECONDS (12.5-14.5)
[2024-05-17 19:15] VITALS: BP 101/54; TEMP 98.2; O2SAT 100
[2024-05-17] MEDS: risperiDONE 2 MG TAB PO SCH (20:06)
[2024-05-17 23:38] VITALS: BP 102/49; TEMP 98; O2SAT 99
[2024-05-18 04:09] VITALS: BP 109/54; TEMP 97.3; O2SAT 99
[2024-05-18 06:25] LABS: HEMATOCRIT 31.3 % (36.0-47.0); MEAN CORPUSCULAR HEMOGLOBIN 30.5 pg (27.0-33.0); MEAN CORPUSCULAR HGB CONC 31.9 g/dl (32.0-36.5); MEAN CORPUSCULAR VOLUME 95.4 fl (80.0-96.0); PLATELET COUNT, AUTOMATED 185 10^3/uL (150-450); RED BLOOD COUNT 3.28 10^6/uL (4.00-5.40); WHITE BLOOD COUNT 4.6 10^3/uL (4.0-10.0)
[2024-05-18 06:57] LABS: ALBUMIN 2.6 G/DL (3.2-5.2); ALKALINE PHOSPHATASE 58 U/L (46-116); ALT/SGPT 13 U/L (7.0-40); AST/SGOT 10 U/L (<34); BILIRUBIN,TOTAL 0.3 MG/DL (0.3-1.2); BLOOD UREA NITROGEN 6 MG/DL (9-23); CALCIUM LEVEL 7.5 MG/DL (8.3-10.6); CARBON DIOXIDE LEVEL 25 MMOL/L (20-31); CHLORIDE LEVEL 109 MMOL/L (98-107); CREATININE FOR GFR 0.46 MG/DL (0.55-1.30); GLOMERULAR FILTRATION RATE > 60.0 (>45); GLUCOSE, FASTING 118 MG/DL (74-106); POTASSIUM SERUM 4.1 MMOL/L (3.5-5.1); SODIUM LEVEL 139 MMOL/L (136-145); TOTAL PROTEIN 5.2 G/DL (5.7-8.2)
[2024-05-18 08:00] VITALS: BP 122/60; TEMP 97.2; O2SAT 97
[2024-05-18] MEDS ORDERED: SITagliptin 50 MG TAB (JANUVIA) PO SCH (09:00)
[2024-05-18] MEDS: FERROUS SULFATE 325MG TAB PO SCH (09:23)
[2024-05-18 16:00] VITALS: BP 123/56; TEMP 97.1; O2SAT 99
[2024-05-18 21:07] VITALS: BP 99/59; TEMP 97.1; O2SAT 96
[2024-05-18] MEDS: CEFDINIR 300 MG CAP (OMNICEF) PO SCH (21:31)
[2024-05-19 00:31] VITALS: BP 110/56; TEMP 98; O2SAT 97
[2024-05-19 04:23] VITALS: BP 112/53; TEMP 97.5; O2SAT 92
[2024-05-19 06:30] LABS: HEMATOCRIT 32.8 % (36.0-47.0); HEMOGLOBIN 10.6 g/dl (12.0-15.5); MEAN CORPUSCULAR HGB CONC 32.3 g/dl (32.0-36.5); MEAN CORPUSCULAR VOLUME 95.9 fl (80.0-96.0); PLATELET COUNT, AUTOMATED 191 10^3/uL (150-450); RED BLOOD COUNT 3.42 10^6/uL (4.00-5.40); WHITE BLOOD COUNT 5.1 10^3/uL (4.0-10.0)
[2024-05-19 06:58] LABS: ALBUMIN 2.7 G/DL (3.2-5.2); ALKALINE PHOSPHATASE 62 U/L (46-116); ALT/SGPT 10 U/L (7.0-40); AST/SGOT 10 U/L (<34); BILIRUBIN,TOTAL 0.3 MG/DL (0.3-1.2); BLOOD UREA NITROGEN 12 MG/DL (9-23); CALCIUM LEVEL 8.2 MG/DL (8.3-10.6); CARBON DIOXIDE LEVEL 27 MMOL/L (20-31); CHLORIDE LEVEL 109 MMOL/L (98-107); CREATININE FOR GFR 0.47 MG/DL (0.55-1.30); GLOMERULAR FILTRATION RATE > 60.0 (>45); GLUCOSE, FASTING 128 MG/DL (74-106); MAGNESIUM LEVEL 1.8 MG/DL (1.8-2.4); POTASSIUM SERUM 3.9 MMOL/L (3.5-5.1); SODIUM LEVEL 141 MMOL/L (136-145); TOTAL PROTEIN 5.4 G/DL (5.7-8.2)
[2024-05-19 09:52] VITALS: BP 112/54; TEMP 97.8; O2SAT 93
[2024-05-19] MEDS ORDERED: MACR100C43 PO (10:53)
[2024-05-19] MEDS ORDERED: MAGN400T2 PO (10:53)
[2024-05-19] MEDS: NITROFURANTOIN (MACROBID) 100 MG CAP PO SCH (11:14)
== END 2024-05-19 13:19 ==
LOC: EDBD 23:02 → EDUNIT# 23:02 → M ED 23:02 → INTOOBSV 05-17 08:30 → M ED INP 05-17 08:30 → M PCU 05-17 15:33
PROVIDERS: ADMIT Internal Medicine; ATTEND Internal Medicine
DX: I95.89 Other hypotension (principal); E86.1 Hypovolemia; E86.0 Dehydration; Z74.2 Need for assistance at home and no other household member able to render care; N39.0 Urinary tract infection, site not specified; B95.2 Enterococcus as the cause of diseases classified elsewhere; E87.6 Hypokalemia; E83.42 Hypomagnesemia; L89.302 Pressure ulcer of unspecified buttock, stage 2; L89.152 Pressure ulcer of sacral region, stage 2; R63.0 Anorexia; R62.7 Adult failure to thrive; R26.81 Unsteadiness on feet; G40.509 Epileptic seizures related to external causes, not intractable, without status epilepticus; T43.595A Adverse effect of other antipsychotics and neuroleptics, initial encounter; T43.3X5A Adverse effect of phenothiazine antipsychotics and neuroleptics, initial encounter; T36.0X5A Adverse effect of penicillins, initial encounter; E11.319 Type 2 diabetes mellitus with unspecified diabetic retinopathy without macular edema; F32.A Depression, unspecified; F41.9 Anxiety disorder, unspecified; D50.9 Iron deficiency anemia, unspecified; E03.9 Hypothyroidism, unspecified; I10 Essential (primary) hypertension; Z86.14 Personal history of Methicillin resistant Staphylococcus aureus infection; E11.42 Type 2 diabetes mellitus with diabetic polyneuropathy; G21.11 Neuroleptic induced parkinsonism; E11.622 Type 2 diabetes mellitus with other skin ulcer; M17.0 Bilateral primary osteoarthritis of knee; I87.2 Venous insufficiency (chronic) (peripheral); Z90.89 Acquired absence of other organs; Z87.81 Personal history of (healed) traumatic fracture; Z98.890 Other specified postprocedural states; R41.0 Disorientation, unspecified; W07.XXXA Fall from chair, initial encounter; Y92.009 Unspecified place in unspecified non-institutional (private) residence as the place of occurrence of the external cause; Y93.9 Activity, unspecified; Y99.9 Unspecified external cause status; E78.5 Hyperlipidemia, unspecified; F20.9 Schizophrenia, unspecified; Z88.0 Allergy status to penicillin; Z88.8 Allergy status to other drugs, medicaments and biological substances; Z79.84 Long term (current) use of oral hypoglycemic drugs; Z79.899 Other long term (current) drug therapy; Z79.890 Hormone replacement therapy
CPT/HCPCS: 36415; 71045; 80053; 81001; 82533; 83735; 84145; 84443; 85025; 85027; 85610; 85730; 87040; 87088; 87186; 87426; 93005; 96361; 96365; 96366; 96372; 97116; 97161; 97165; 97530; 97535; 99285; G0378; J1650; J1815; J3475

== ENCOUNTER → 2024-05-25 | Outpatient (REF) | payer MEDICARE, MEDICAID ==
[~2024-05-25] MED LIST changes: -E-401CAP2 PO; +MACR100C43 PO; +VITA400C83 PO
[2024-05-25 09:52] LABS: BASO % 0.9 % (0.0-1.0); EOS # 0.1 10^3/uL (0.0-0.5); EOS % 2.4 % (0.0-3.0); HEMATOCRIT 34.6 % (36.0-47.0); HEMOGLOBIN 11.1 g/dl (12.0-15.5); LYMPH # 1.3 10^3/uL (1.5-5.0); LYMPH % 29.3 % (24.0-44.0); MEAN CORPUSCULAR HEMOGLOBIN 30.5 pg (27.0-33.0); MEAN CORPUSCULAR HGB CONC 32.1 g/dl (32.0-36.5); MEAN CORPUSCULAR VOLUME 95.1 fl (80.0-96.0); MONO # 0.4 10^3/uL (0.0-0.8); MONO % 9.5 % (2.0-8.0); NEUTROPHILS # 2.6 10^3/uL (1.5-8.5); NEUTROPHILS % 57.2 % (36.0-66.0); PLATELET COUNT, AUTOMATED 280 10^3/uL (150-450); RED BLOOD COUNT 3.64 10^6/uL (4.00-5.40); WHITE BLOOD COUNT 4.5 10^3/uL (4.0-10.0)
[2024-05-25 10:20] LABS: BLOOD UREA NITROGEN 25 MG/DL (9-23); CALCIUM LEVEL 8.7 MG/DL (8.3-10.6); CARBON DIOXIDE LEVEL 26 MMOL/L (20-31); CHLORIDE LEVEL 106 MMOL/L (98-107); CREATININE FOR GFR 0.45 MG/DL (0.55-1.30); GLOMERULAR FILTRATION RATE > 60.0 (>45); GLUCOSE, FASTING 131 MG/DL (74-106); POTASSIUM SERUM 4.2 MMOL/L (3.5-5.1); SODIUM LEVEL 138 MMOL/L (136-145)
== END ==
LOC: SKLAB4 08:33
PROVIDERS: ATTEND Internal Medicine
DX: N39.0 Urinary tract infection, site not specified (principal)

== ENCOUNTER → 2024-06-11 | Outpatient (REF) | payer MEDICARE, MEDICAID ==
[~2024-06-11] MED LIST changes: +E-401CAP2 PO; -VITA400C83 PO
[2024-06-11 18:39] LABS: HEMATOCRIT 35.6 % (36.0-47.0); HEMOGLOBIN 11.3 g/dl (12.0-15.5); MEAN CORPUSCULAR HEMOGLOBIN 30.4 pg (27.0-33.0); MEAN CORPUSCULAR HGB CONC 31.7 g/dl (32.0-36.5); MEAN CORPUSCULAR VOLUME 95.7 fl (80.0-96.0); PLATELET COUNT, AUTOMATED 221 10^3/uL (150-450); RED BLOOD COUNT 3.72 10^6/uL (4.00-5.40); WHITE BLOOD COUNT 8.4 10^3/uL (4.0-10.0)
[2024-06-11 19:11] LABS: THYROID STIMULATING HORMONE 3.674 uIU/ML (0.55-4.78)
[2024-06-11 19:20] LABS: ALBUMIN 3.4 G/DL (3.2-5.2); ALKALINE PHOSPHATASE 72 U/L (46-116); ALT/SGPT 16 U/L (7.0-40); AST/SGOT 13 U/L (<34); BILIRUBIN,TOTAL 0.2 MG/DL (0.3-1.2); BLOOD UREA NITROGEN 28 MG/DL (9-23); CALCIUM LEVEL 9.8 MG/DL (8.3-10.6); CARBON DIOXIDE LEVEL 26 MMOL/L (20-31); CHLORIDE LEVEL 109 MMOL/L (98-107); CREATININE FOR GFR 0.47 MG/DL (0.55-1.30); GLOMERULAR FILTRATION RATE > 60.0 (>45); GLUCOSE, FASTING 99 MG/DL (74-106); MAGNESIUM LEVEL 1.8 MG/DL (1.8-2.4); POTASSIUM SERUM 4.2 MMOL/L (3.5-5.1); SODIUM LEVEL 141 MMOL/L (136-145); TOTAL PROTEIN 6.4 G/DL (5.7-8.2)
[2024-06-11 19:40] LABS: HEMOGLOBIN A1c 5.7 % (4.0-6.0)
== END ==
LOC: SKLAB4 07:00
PROVIDERS: ATTEND Internal Medicine
DX: E83.42 Hypomagnesemia (principal); E11.9 Type 2 diabetes mellitus without complications; E03.9 Hypothyroidism, unspecified; I10 Essential (primary) hypertension

== ENCOUNTER → 2024-11-13 | Outpatient (REF) | payer MEDICARE, MEDICAID ==
[~2024-11-13] MED LIST changes: +GLIP2.5T46 PO; -GLIP2.5T6 PO; +NYST1POW3 TOP; -NYST1POW9 TOP
[2024-11-13 11:25] LABS: APPEARANCE, URINE CLEAR (CLEAR); BACTERIA, URINE AUTO NEGATIVE (NEGATIVE); BILIRUBIN, URINE AUTO NEGATIVE (NEGATIVE); BLOOD, URINE BLOOD NEGATIVE (NEGATIVE); COLOR, URINE YELLOW (YELLOW); GLUCOSE, URINE (UA) AUTO 3+ mg/dL (NEGATIVE); KETONE, URINE AUTO NEGATIVE (NEGATIVE); LEUKOCYTE ESTERASE, URINE AUTO TRACE (NEGATIVE); NITRITE, URINE AUTO NEGATIVE (NEGATIVE); PROTEIN, URINE AUTO NEGATIVE (NEGATIVE); RBC, URINE AUTO 1 /HPF (0-3); SPECIFIC GRAVITY URINE AUTO 1.026 (1.002-1.035); SQUAMOUS EPITHELIAL CELL UR AU 0 /HPF (0-6); UROBILINOGEN, URINE AUTO 0.2 mg/dL (0.0-2.0); WBC, URINE AUTO 10 /HPF (0-3)
[2024-11-13 12:16] LABS: BASO % 0.6 % (0.0-1.0); EOS # 0.2 10^3/uL (0.0-0.5); EOS % 2.7 % (0.0-3.0); HEMATOCRIT 38.8 % (36.0-47.0); HEMOGLOBIN 12.2 g/dl (12.0-15.5); LYMPH # 1.5 10^3/uL (1.5-5.0); LYMPH % 24.1 % (24.0-44.0); MEAN CORPUSCULAR HEMOGLOBIN 29.7 pg (27.0-33.0); MEAN CORPUSCULAR HGB CONC 31.4 g/dl (32.0-36.5); MEAN CORPUSCULAR VOLUME 94.4 fl (80.0-96.0); MONO # 0.5 10^3/uL (0.0-0.8); MONO % 8.4 % (2.0-8.0); NEUTROPHILS % 62.9 % (36.0-66.0); PLATELET COUNT, AUTOMATED 193 10^3/uL (150-450); RED BLOOD COUNT 4.11 10^6/uL (4.00-5.40); WHITE BLOOD COUNT 6.3 10^3/uL (4.0-10.0)
[2024-11-13 12:26] LABS: HEMOGLOBIN A1c 8.4 % (4.0-6.0)
== END ==
LOC: SKLAB4 10:50
PROVIDERS: ATTEND Internal Medicine
DX: R30.0 Dysuria (principal); E11.9 Type 2 diabetes mellitus without complications

== ENCOUNTER → 2024-12-03 | Outpatient (REF) | payer MEDICARE, MEDICAID ==
[2024-12-03 13:56] LABS: BASO % 0.6 % (0.0-1.0); EOS # 0.2 10^3/uL (0.0-0.5); EOS % 3.1 % (0.0-3.0); HEMATOCRIT 42.2 % (36.0-47.0); HEMOGLOBIN 13.3 g/dl (12.0-15.5); LYMPH # 0.9 10^3/uL (1.5-5.0); LYMPH % 18.9 % (24.0-44.0); MEAN CORPUSCULAR HEMOGLOBIN 29.8 pg (27.0-33.0); MEAN CORPUSCULAR HGB CONC 31.5 g/dl (32.0-36.5); MEAN CORPUSCULAR VOLUME 94.6 fl (80.0-96.0); MONO # 0.5 10^3/uL (0.0-0.8); MONO % 10.3 % (2.0-8.0); NEUTROPHILS # 3.2 10^3/uL (1.5-8.5); NEUTROPHILS % 66.5 % (36.0-66.0); PLATELET COUNT, AUTOMATED 159 10^3/uL (150-450); RED BLOOD COUNT 4.46 10^6/uL (4.00-5.40); WHITE BLOOD COUNT 4.9 10^3/uL (4.0-10.0)
[2024-12-03 14:07] LABS: ALBUMIN 3.4 G/DL (3.2-5.2); ALKALINE PHOSPHATASE 49 U/L (35-104); ALT/SGPT 20 U/L (7.0-40); AST/SGOT 19 U/L (<34); BILIRUBIN,TOTAL 0.5 MG/DL (0.3-1.2); BLOOD UREA NITROGEN 21 MG/DL (9-23); CALCIUM LEVEL 8.8 MG/DL (8.3-10.6); CARBON DIOXIDE LEVEL 26 MMOL/L (20-31); CHLORIDE LEVEL 103 MMOL/L (98-107); CREATININE FOR GFR 0.58 MG/DL (0.55-1.30); GLOMERULAR FILTRATION RATE > 90.0 (>45); GLUCOSE, FASTING 109 MG/DL (74-106); IRON (FE) 40 UG/DL (50-170); POTASSIUM SERUM 4.4 MMOL/L (3.5-5.1); SODIUM LEVEL 143 MMOL/L (136-145); TOTAL PROTEIN 6.3 G/DL (5.7-8.2)
[2024-12-03 14:11] LABS: THYROID STIMULATING HORMONE 1.971 uIU/ML (0.55-4.78); VITAMIN B12 LEVEL 740 PG/ML (211-911)
== END ==
LOC: SKLAB4 12:18
PROVIDERS: ATTEND Internal Medicine
DX: D64.9 Anemia, unspecified (principal); E53.8 Deficiency of other specified B group vitamins; E03.9 Hypothyroidism, unspecified; R42 Dizziness and giddiness

== ENCOUNTER → 2025-06-24 | Outpatient (REF) | payer MEDICARE, MEDICAID ==
[~2025-06-24] MED LIST changes: +LORA-1164 PO; -LORA-622 PO; -NYST-13 TOP; +NYST0.1C TOP
[2025-06-24 09:43] LABS: PLATELET COUNT, AUTOMATED 205 10^3/uL (150-450)
[2025-06-24 09:57] LABS: ESTIMATED AVERAGE GLUCOSE 117.0 MG/DL (60-110)
[2025-06-24 10:02] LABS: ALT/SGPT 20 U/L (7.0-40); AST/SGOT 17 U/L (<34); CALCIUM LEVEL 8.9 MG/DL (8.3-10.6); CARBON DIOXIDE LEVEL 31 MMOL/L (20-31); CHLORIDE LEVEL 105 MMOL/L (98-107); CREATININE FOR GFR 0.55 MG/DL (0.55-1.30); GLOMERULAR FILTRATION RATE > 90.0 (>45); MAGNESIUM LEVEL 1.6 MG/DL (1.8-2.4); POTASSIUM SERUM 4.1 MMOL/L (3.5-5.1); SODIUM LEVEL 145 MMOL/L (136-145)
== END ==
LOC: SKLAB4 07:00
PROVIDERS: ATTEND Family Medicine
DX: E83.42 Hypomagnesemia (principal); E03.9 Hypothyroidism, unspecified; E11.9 Type 2 diabetes mellitus without complications; I10 Essential (primary) hypertension

== ENCOUNTER → 2025-08-09 | Outpatient (CLI) | payer MEDICARE, MEDICAID ==
[~2025-08-09] MED LIST changes: -BACTDSTA PO; +SULF-8 PO
== END ==
LOC: M RAD 09:01
PROVIDERS: ATTEND Nurse Practitioner Adult Health
DX: R13.10 Dysphagia, unspecified (principal); Z53.9 Procedure and treatment not carried out, unspecified reason